=== PATIENT | female | born 1965 | race Caucasian/White ===

== ENCOUNTER 2022-09-20 10:19 | Emergency (ER) | payer BC, SELFPAY ==
--- NOTE | ~2022-09-20 | US_ITS ---
EXAMINATION: US ABDOMEN LIMITED CLINICAL INFORMATION: Right upper quadrant, epigastric pain. COMPARISON: CT scan of the abdomen and pelvis dated 09/25/2017. TECHNIQUE: Real-time imaging of the right upper quadrant abdominal viscera. FINDINGS: PANCREAS: Visualized portions unremarkable. LIVER: Subcapsular anechoic cyst in the right hepatic lobe measures up to 4.3 cm. Color Doppler showed no abnormal vascular flow. GALLBLADDER: Unremarkable. COMMON BILE DUCT: Normal in caliber measuring 0.2 cm in diameter. FREE FLUID: None. US/US abdomen limited IMPRESSION: Right liver hepatic cyst demonstrates benign features similar to the previous CT scan. This does not require follow-up. No other significant abnormality.
--- NOTE | ~2022-09-20 | XR_ITS ---
EXAMINATION: XR CHEST CLINICAL INFORMATION: Chest pain. COMPARISON: None TECHNIQUE: 2 views of the chest were obtained. FINDINGS: The lungs are clear. There are no pleural effusions. The heart and mediastinal structures are unremarkable. Nonacute deformity of the left superior ribs are noted. XR/XR chest 2V IMPRESSION: No acute cardiopulmonary process.
[2022-09-20 10:42] VITALS: BP 198/80; PULSE 92; RESP 20; TEMP 36.6; O2SAT 99; BMI 36.6
[2022-09-20 11:00] LABS: MANUAL DIFF FLAG NO
[2022-09-20 11:02] LABS: Basophils Percent Auto 0.4 % (0-2); Eosinophils Absolute Auto 0.1 X10*3/uL (0.0-0.4); Hematocrit 33.3 % (37.0-47.0); Hemoglobin 11.1 g/dl (12.0-16.0); Imm Gran Abs Auto 0.02 X10*3/uL (0.00-0.03); Imm Gran Pct Auto 0.3 % (0.0-0.4); Lymphocytes Percent Auto 15.4 % (20-40); Mean Corpuscular HGB Conc 33.3 g/dl (31.0-35.0); Mean Corpuscular Hemoglobin 28.9 pg (27.0-33.0); Mean Corpuscular Volume 86.7 fL (80.0-98.0); Mean Platelet Volume 10.9 fL (9.4-12.3); Monocytes Absolute Auto 0.5 X10*3/uL (0.1-1.2); Monocytes Percent Auto 7.9 % (2-11); Neutrophils Absolute Auto 5.1 x10*3/uL (2.0-8.3); Platelet Count 211 X10*3/uL (160-400); Red Blood Count 3.84 X10*6/uL (4.20-5.50); Red Cell Distribution Width 12.9 % (11.0-16.0); White Blood Count 6.8 X10*3/uL (4.8-10.8)
[2022-09-20 11:29] LABS: Anion Gap 12 (12-20); Blood Urea Nitrogen 26 mg/dL (9-16); Calcium 9.9 mg/dL (8.4-10.2); Carbon Dioxide 28 mmol/L (22-29); Chloride 104 mmol/L (96-108); Creatinine Clr Calc Pharmacy 54.9; Estimated Glomerular Filt Rate 43; Glucose Random 119 mg/dL (60-115); Potassium 4.1 mmol/L (3.3-5.1); Sodium 140 mmol/L (135-145)
[2022-09-20 11:33] LABS: Troponin-I High Sensitivity 6.5 ng/L (<3.5-17.0)
--- NOTE | 2022-09-20 14:41 | ECG_ITS ---
Test Reason : CHEST PAIN Blood Pressure : / mmHG Vent. Rate : 088 BPM Atrial Rate : 088 BPM P-R Int : 214 ms QRS Dur : 130 ms QT Int : 390 ms P-R-T Axes : 071 -35 039 degrees QTc Int : 471 ms Sinus rhythm with 1st degree A-V block Left axis deviation RSR' or QR pattern in V1 suggests right ventricular conduction delay Nonspecific ST abnormality Inferior leads Non-specific intra-ventricular conduction block Abnormal ECG No previous ECGs available Referred By: Yaz Helm Electronically Signed By:RONALD HAM MD
--- NOTE | 2022-09-20 14:42 | ED.CHESTPAIN ---
HPI - Chest Pain General Chief Complaint: Chest Pain Stated Complaint: Chest pain/Abd pain Time Seen by Provider: 09/20/22 14:37 Source: patient Mode of arrival: ambulatory Limitations: no limitations History of Present Illness HPI narrative: Patient is a 57-year-old female who presents to the emergency department today for evaluation of intermittent chest discomfort and palpitations that began yesterday while at work. She felt these ?radiating into her abdomen?. States during periods of palpitations she was feeling discomfort diffusely down the midline of her abdomen. She has also been experiencing indigestion, epigastric pain that is described as aching cramping intermittently over the past month or so. Denies associated fevers, chills, dizziness, lightheadedness, headache, vision changes, neck pain, shortness of breath, difficulty breathing, nausea, vomiting, lower abdominal pain, diarrhea, constipation, numbness or tingling of the extremities, generalized weakness. Related Data Previous Rx's Medication Instructions Recorded omeprazole 20 mg capsule,delayed 20 mg PO DAILY #14 caps 09/20/22 release Allergies Allergy/AdvReac Type Severity Reaction Status Date / Time ciprofloxacin [From CIPRO] Allergy Unknown NAUSEA Unverified 07/30/20 16:43 clarithromycin [From BIAXIN] Allergy Unknown SWELLING, Unverified 07/30/20 16:43 HIVES Penicillins [PCN] Allergy Unknown HIVES Unverified 07/30/20 16:43 sulfamethoxazole Allergy Unknown HIVES Unverified 07/30/20 16:43 [From BACTRIM] trimethoprim [From BACTRIM] Allergy Unknown HIVES Unverified 07/30/20 16:43 Review of Systems Review of Systems: Constitutional : No Weight loss, No Fever, No Chills ENT/Mouth :? No sore throat, No Rhinorrhea Eyes: No Eye Pain, No Swelling Cardiovascular : pos Chest Pain, no SOB, no Dyspnea on Exertion, No Orthopnea, No Edema, positive Palpitations Respiratory : No Cough, No Sputum Gastrointestinal : No Nausea, No Vomiting, No Diarrhea, positive abdominal Pain, NoHematochezia, No Melena Genitourinary : No Dysuria, No Urinary Frequency Musculoskeletal : No joint pain, No Myalgias, No Joint Swelling Skin : No Skin Lesions, No rash Neuro : No Weakness, No Numbness, No Dizziness, No Headache Psych : No Anxiety/Panic, No Depression Heme/Lymph: No Bruising, No Lymphadenopathy Endocrine : No Polyuria, No Polydipsia Yes all other systems are reviewed and are negative [facility] Past Medical History Attestation statement: The following information was validated with the patient. Source: old records reviewed Social History Social History Smoked in Last 30 Days: No Use of substances other than those prescribed or required for medical reasons: No Advance Directives: No Advance Directives Information Provided: Yes Patient : No Physical Exam Vital Signs: Vital Signs: Last Vital Signs Temp 97.9 F 09/20/22 16:00 Pulse 60 09/20/22 16:00 Resp 18 09/20/22 16:00 BP 168/54 H 09/20/22 16:00 Pulse Ox 98 09/20/22 16:00 O2 Del Method 09/20/22 16:00 BMI result Body Mass Index 36.6 Appearance: Alert.?Oriented to person, place and time. No acute distress.?Normal affect. Eyes: Pupils equal, round and reactive to light.? ENT: Pharynx normal.?? Neck: Normal inspection.? Neck supple.?? CVS: Heart sounds normal. Normal heart rate and rhythm.? Pulses normal.?? Respiratory: No respiratory distress.? Lung sounds clear to auscultation bilaterally?? Abdomen: Soft with right upper quadrant and epigastric tenderness upon palpation. Normoactive bowel sounds. Skin: Skin warm and dry.? Normal skin color.? Extremities: No lower extremity edema.? Neuro: Moves all extremities spontaneously. Sensation intact bilaterally. No focal neuro deficits. Ambulates with normal steady gait. Course Course Course Narrative: Patient is a 57-year-old female with a past medical history of PDA status post surgical repair, history of coarctation of the aorta status post bypass, hypertension, hyperlipidemia, stage III CKD, anxiety, obstructive sleep apnea, atrial fibrillation/atrial flutter S/P ablation in 2017, anticoagulated on Eliquis, not on rate control since metoprolol was discontinued January 2022 secondary to hypotension. She presents today for evaluation of intermittent chest discomfort, palpitations, and epigastric pain. Will obtain CBC to evaluate for leukocytosis/ anemia, CMP and lipase to evaluate for abnormal electrolytes /abnormal renal function/ abnormal hepatic/biliary function, EKG and troponin to evaluate for ischemia/ACS. Chest x-ray to evaluate for consolidation/ infiltrate/ mass/ pulmonary congestion. Will trial GI cocktail for pain. Currently she is without chest pain or palpitations. Reevaluation(s) Reevaluation #1: CBC is overall unremarkable. CMP overall unremarkable, BUN 26 and creatinine 1.29 which patient reports is around baseline for her. LFT lipase are within normal limits. Troponin 6.5, EKG reveals sinus rhythm with first-degree AV block, when compared to the prior EKG that she has a personal copy of there are no acute ischemic changes. Time: 16:06 Reevaluation #2: Ultrasound reveals right hepatic cyst, similar to prior CT scan, no other significant abnormality. Patient tolerating krunal andrea and crackers without significant pain nausea or vomiting. Discussed with palpitations likely secondary to bouts of AFib/a flutter she expresses that she has been experiencing, again continues to have no palpitations while in the emergency department. GI symptoms likely secondary to gastritis, discussed plan of care for discharge home, omeprazole daily, Tums as needed for acute symptoms, outpatient follow-up with primary care provider within 2-3 days, discussed worrisome signs and symptoms to return back to the emergency department for. All questions were answered, patient was discharged home in stable condition. Time: 17:51 Medications Administered Discontinued Medications Generic Name Dose Route Start Last Admin Trade Name Powerq PRN Reason Stop Dose Admin Acetaminophen 975 mg 09/20/22 17:33 09/20/22 17:39 Acetaminophen 325 Mg Tablet PO 09/20/22 17:34 975 mg ONCE ONE Administration Al Hydroxide/Mg Hydroxide 30 ml 09/20/22 15:09 09/20/22 15:56 Magnesium Hydrox/Alum Hydrox 30 Ml Oral.Susp PO 09/20/22 15:10 30 ml ONCE ONE Administration Famotidine 20 mg 09/20/22 15:09 09/20/22 15:56 Famotidine 20 Mg Tablet PO 09/20/22 15:10 20 mg ONCE ONE Administration Lidocaine HCl 15 ml 09/20/22 15:09 09/20/22 15:57 Lidocaine Hcl Viscous 2 % 15 Ml Solution MUCOUS MEM 09/20/22 15:10 Not Given ONCE ONE MDM - Chest Pain Medical Records Data Attestation: I reviewed the patient's medical records. Lab Data Attestation: I reviewed the patient's lab results. Result diagrams: 09/20/22 10:55 09/20/22 10:55 Labs: Lab Results 09/20/22 09/20/22 09/20/22 Range/Units 10:55 10:55 10:55 WBC 6.8 (4.8-10.8) X10*3/uL RBC 3.84 L (4.20-5.50) X10*6/uL Hgb 11.1 L (12.0-16.0) g/dl Hct 33.3 L (37.0-47.0) % MCV 86.7 (80.0-98.0) fL MCH 28.9 (27.0-33.0) pg MCHC 33.3 (31.0-35.0) g/dl RDW 12.9 (11.0-16.0) % Plt Count 211 (160-400) X10*3/uL MPV 10.9 (9.4-12.3) fL Immature Gran % (Auto) 0.3 (0.0-0.4) % Neut % (Auto) 75.0 H (45-73) % Lymph % (Auto) 15.4 L (20-40) % [place] % (Auto) 7.9 (2-11) % Eos % (Auto) 1.0 (0-4) % Baso % (Auto) 0.4 (0-2) % Lymph # (Auto) 1.0 L (1.2-4.9) X10*3/uL [place] # (Auto) 0.5 (0.1-1.2) X10*3/uL Eos # (Auto) 0.1 (0.0-0.4) X10*3/uL Baso # (Auto) 0.0 (0.0-0.2) X10*3/uL Abs Immat Gran (auto) 0.02 (0.00-0.03) X10*3/uL Absolute Neuts (auto) 5.1 (2.0-8.3) x10*3/uL Absolute Nucleated RBC 0.000 (0.0-0.012) X10*3/uL Nucleated RBC % (auto) 0.0 (0.0-0.2) /100WBC Sodium 140 (135-145) mmol/L Potassium 4.1 (3.3-5.1) mmol/L Chloride 104 (96-108) mmol/L Carbon Dioxide 28 (22-29) mmol/L Anion Gap 12 (12-20) BUN 26 H (9-16) mg/dL Creatinine 1.29 (0.5-1.4) mg/dL Estim Creat Clear Calc 54.9 Estimated GFR 43 Random Glucose 119 H (60-115) mg/dL Calcium 9.9 (8.4-10.2) mg/dL Total Bilirubin 0.5 (0.0-1.0) mg/dL Direct Bilirubin 0.2 (0.0-0.5) mg/dL AST 17 (5-31) U/L ALT 12 (0-31) U/L Alkaline Phosphatase 96 (39-117) U/L Troponin I High Sens 6.5 (<3.5-17.0) ng/L Total Protein 7.3 (6.5-8.0) g/dL Albumin 4.6 (3.5-5.0) g/dL Lipase 25 (8-78) U/L Imaging Data Chest x-ray: Radiologist's impression: XR/XR chest 2V IMPRESSION: No acute cardiopulmonary process. US - abdomen: Radiologist's impression: US/US abdomen limited IMPRESSION: Right liver hepatic cyst demonstrates benign features similar to the previous CT scan. This does not require follow-up. No other significant abnormality. ECG Data ECG #1: Attestation: I personally reviewed and interpreted this ECG as follows: ECG interpretation date: 09/20/22 Prior ECG tracings: available for review Interpretation: Rate: 88 Rhythm:? Sinus rhythm with first-degree AV block, intraventricular block [place]:? Left axis deviation Normal P waves.? Normal NAZ.?? Normal QRS complex.?? ST T wave :??No ST elevation, no ST depression qTC: 471 prior studies:? No prior EKG in [place] [employer], patient brought with her EKG from 2019 The study has been interpreted contemporaneously by me. Discharge Plan Discharge Clinical Impression: Gastritis, Palpitations Patient Disposition: Home, Self-Care Instructions: Heart Palpitations (ED), Gastritis (ED) Additional Instructions: As we discussed, your blood work was overall normal today, your ultrasound was overall normal. EKG appears unchanged when compared to her prior EKG. Take omeprazole daily, and Tums as needed for symptoms. Introduce a bland diet including crackers, bananas, rice, soup, toast, boiled vegetables. You may then progress to plain baked chicken or boiled chicken or turkey. Avoid dairy products or foods high in fat, [place], or spicy foods as this may worsen your symptoms. Speak with your primary care provider and arrange for a follow-up visit within 2-3 days. Return to emergency department with any new or worsening symptoms or concerns. Prescriptions: New omeprazole 20 mg capsule,delayed release(DR/EC) 20 mg PO DAILY Qty: 14 0RF Referrals: Eva Reardon MD [Primary Care Provider] -
[2022-09-20 15:50] VITALS: BP 168/54; PULSE 60; RESP 18; O2SAT 98
[2022-09-20] MEDS: Famotidine 20 MG TABLET PO (15:56)
[2022-09-20] MEDS: Magnesium Hydrox/Alum Hydrox 30 ML ORAL.SUSP PO (15:56)
[2022-09-20 15:57] LABS: Alanine Aminotransferase 12 U/L (0-31); Albumin Level 4.6 g/dL (3.5-5.0); Alkaline Phosphatase 96 U/L (39-117); Aspartate Amino Transferase 17 U/L (5-31); Bilirubin Direct 0.2 mg/dL (0.0-0.5); Bilirubin Total 0.5 mg/dL (0.0-1.0); Lipase 25 U/L (8-78); Total Protein 7.3 g/dL (6.5-8.0)
[2022-09-20 16:00] VITALS: BP 168/54; PULSE 60; RESP 18; TEMP 36.6; O2SAT 98
--- NOTE | 2022-09-20 17:34 | PC.NURSE ---
Pt reports increased abd kehinde and headache after u/s exam. Rates pain 3/10. Pt also reports one diarrhea episode. MDL aware.
[2022-09-20] MEDS: Acetaminophen 325 MG TABLET 975 MG PO (17:39)
--- NOTE | 2022-09-20 18:37 | PC.NURSE ---
Discharge instructions reviewed with pt. Pt verbalizes understanding.
== END 2022-09-20 18:38 | disposition home or self-care (01) ==
PROVIDERS: Nurse Practitioner Family; Emergency Provider Emergency Medicine; PCP Internal Medicine
DX: R00.2 Palpitations (principal); K29.70 Gastritis, unspecified, without bleeding
CPT/HCPCS: 36415; 71046; 76705; 80048; 80076; 83690; 84484; 85025; 93005; 99284; 99285

== ENCOUNTER 2024-01-16 15:27 | Outpatient (AMB) | payer OTHER, SELFPAY ==
--- NOTE | 2024-01-16 15:37 | HO.NEPHOV ---
HPI HPI Comments History of Present Illness Details I hadd the pleasure of seeing Kristine in follow-up of her chronic kidney disease and hypertension. She has history of coarctation of aorta. Her blood pressure has been fairly well controlled lately. She has not had any further atrial fibrillation. She is followed up by her professional services manager. Her renal functions had been at her baseline. She does not have any chest pain, shortness of breath, palpitation, paroxysmal nocturnal dyspnea, orthopnea, pedal edema, orthostatic symptoms, hematuria. She does not take any nonsteroidal anti-inflammatories. There were no new active issues at the time of this office visit. FORMERLY [facility] Medical History (Updated 01/16/24 @ 16:25 by Sacha Malik MD) Coarctation of aorta PDA (patent ductus arteriosus) Hypertension CKD (chronic kidney disease) stage 3, GFR 30-59 ml/min Surgical History S/P ablation of atrial fibrillation H/O section History of foot surgery H/O angioplasty Family History Brother Diabetes Father Hypertension Mother Hypertension Stroke Social History (Updated 01/16/24 @ 15:48 by Estephanie Mauro MA) Alcohol intake: never Patient Tobacco Use Status: Never used Tobacco Vital Signs 01/16/24 15:40 Height 5 ft 5 in Weight 210 lb BMI 34.9 BP 140/70 H Blood Pressure Location Lt brachial Position Sitting Pulse 61 Pulse Source Pulse Oximeter Pulse Oximetry (%) 99 Oxygen Delivery Method Room Air Physical Exam Vital Signs: Last Vital Signs Pulse 61 01/16/24 15:40 BP 140/70 H 01/16/24 15:40 Pulse Ox 99 01/16/24 15:40 Oxygen Delivery Method Room Air 01/16/24 15:40 BMI result Body Mass Index 34.9 Const General: comfortable and no acute distress Orientation/consciousness: patient oriented x3 HEENT Head: Yes normocephalic Mouth: Normal oral and palatal mucosa present Eyes EOM: EOMs intact bilaterally Neck Neck: Yes supple Resp Auscultation: clear to auscultation bilaterally Cardio Jugular venous distension: no JVD Rate: regular rate GI Palpation (GI): Soft to palpation Auscultation: normal bowel sounds General: Yes no CVA tenderness Back/Spine/Pelvis Back: no CVA tenderness Skin General skin exam: no rashes or lesions noted Neuro General: patient oriented x3 and moves all extremities Extrem General: Yes no pedal edema Assessment & Plan Assessment & Plan (1) CKD (chronic kidney disease) stage 3, GFR 30-59 ml/min: Code(s): N18.30 - Chronic kidney disease, stage 3 unspecified Qualifiers: Chronic kidney disease stage 3 subtype: stage 3a (GFR 45-59) Qualified Code(s): N18.31 - Chronic kidney disease, stage 3a (2) Hypertension: Code(s): I10 - Essential (primary) hypertension Qualifiers: Hypertension type: renovascular hypertension Qualified Code(s): I15.0 - Renovascular hypertension Plan Kristine has CKD stage 3 due to vascular disease. Her renal functions are at baseline. Her blood pressure has been at goal. She is tolerating current medication regimen. Her volume status is optimal. She is watching her blood sugars closely. She may be a candidate for Jardiance or Farxiga in the future. She needs to closely follow-up with her professional services manager. She avoids nonsteroidal anti-inflammatories. She will benefit from weight loss. I did not make any medication changes today. Follow-up blood work ordered. Answered all questions. Orders: Orders Blood Urea Nitrogen 01/16/24 N18.30 - Chronic kidney disease, stage 3 unspecified, I10 - Essential (primary) hypertension Electrolytes 01/16/24 N18.30 - Chronic kidney disease, stage 3 unspecified, I10 - Essential (primary) hypertension Creatinine 01/16/24 N18.30 - Chronic kidney disease, stage 3 unspecified, I10 - Essential (primary) hypertension Coding Level of Care Code Est Pt Level 4 (40899) Diagnoses Stage 3a chronic kidney disease N18.31 Chronic kidney disease stage 3 subtype: stage 3a (GFR 45-59) Renovascular hypertension I15.0 Hypertension type: renovascular hypertension Results Reviewed Nephrology Results: Hgb 11.1 g/dl (12.0-16.0) L 09/20/22 WBC 6.8 X10*3/uL (4.8-10.8) 09/20/22 Plt Count 211 X10*3/uL (160-400) 09/20/22 Sodium 140 mmol/L (135-145) 09/20/22 Potassium 4.1 mmol/L (3.3-5.1) 09/20/22 Chloride 104 mmol/L (96-108) 09/20/22 Carbon Dioxide 28 mmol/L (22-29) 09/20/22 BUN 26 mg/dL (9-16) H 09/20/22 Creatinine 1.29 mg/dL (0.5-1.4) 09/20/22 Calcium 9.9 mg/dL (8.4-10.2) 09/20/22
[2024-01-16 15:40] VITALS: BP 140/70; PULSE 61; O2SAT 99; BMI 34.9
== END 2024-01-16 16:33 | disposition home or self-care (01) ==
PROVIDERS: PCP Internal Medicine; Visit Provider Internal Medicine Nephrology
DX: N18.31 Chronic kidney disease, stage 3a (principal); I15.0 Renovascular hypertension
CPT/HCPCS: 99214

== ENCOUNTER → 2024-01-16 15:27 | Outpatient (BNVA) | payer OTHER, SELFPAY | PROVIDERS: PCP Internal Medicine; Visit Provider Internal Medicine Nephrology ==

== ENCOUNTER 2024-04-16 16:24 | Outpatient (REF) | payer OTHER, SELFPAY ==
[2024-04-16 17:16] LABS: Anion Gap 17 (12-20); Blood Urea Nitrogen 67 mg/dL (9-16); Carbon Dioxide 20 mmol/L (22-29); Chloride 103 mmol/L (96-108); Estimated Glomerular Filt Rate 25; Potassium 4.9 mmol/L (3.3-5.1); Sodium 135 mmol/L (135-145)
[2024-04-16 18:24] LABS: Total Protein Urine Random < 7 mg/dL (<12)
== END 2024-04-16 16:25 | disposition home or self-care (01) ==
LOC: HO.LAB 16:24
PROVIDERS: PCP Internal Medicine; Visit Provider Internal Medicine Nephrology
DX: N18.30 Chronic kidney disease, stage 3 unspecified (principal); I10 Essential (primary) hypertension
CPT/HCPCS: 36415; 80051; 82565; 82570; 84156; 84520

== ENCOUNTER 2024-04-18 15:45 | Outpatient (AMB) | payer OTHER, SELFPAY ==
--- NOTE | 2024-04-18 15:48 | HO.NEPHOV_ITS ---
Vital Signs 04/18/24 15:50 Height 5 ft 5 in Weight 205 lb BMI 34.1 BP 132/50 L Blood Pressure Location Lt brachial Position Sitting Pulse 66 Pulse Source Pulse Oximeter Pulse Oximetry (%) 99 Oxygen Delivery Method Room Air Intake Visit Reasons: 3 mon follow up/ LVM Allergies ciprofloxacin [From CIPRO] Allergy (Unknown, Verified 01/16/24 15:44) NAUSEA clarithromycin [From BIAXIN] Allergy (Unknown, Verified 01/16/24 15:44) SWELLING, HIVES Penicillins [PCN] Allergy (Unknown, Verified 01/16/24 15:44) HIVES sulfamethoxazole [From BACTRIM] Allergy (Unknown, Verified 01/16/24 15:44) HIVES trimethoprim [From BACTRIM] Allergy (Unknown, Verified 01/16/24 15:44) HIVES HPI Comments Details: Kristine was seen in follow-up of her chronic kidney disease and hypertension. She has been feeling intermittently light headed. She also had 3 episodes of diarrhea. Her dizziness more or less happens around noon time. She has history of coarctation of aorta. Her blood pressure has been running low. She had 2 episodes of COVID and ever since she has been having issues with breathing and had multiple ER visits. She has not had any further atrial fibrillation. She is followed up by her financial risk manager. Her renal functions had been at her baseline but her serum creatinine has gone up recently. She does not have any chest pain, shortness of breath, palpitation, paroxysmal nocturnal dyspnea, orthopnea, pedal edema, orthostatic symptoms, hematuria. She does not take any nonsteroidal anti-inflammatories. Kristine has not tolerated beta paulino in the past. She could not tolerate the spironolactone in the past due to hyperkalemia. Her stress test was negative in the past. She uses CPAP. She has no history of proteinuria. Doppler of her renal arteries did not show any critical renal artery stenosis in the past. Her Chlorthalidone was put on hold since she had JAKOB. She is concerned about her JAKOB and was accompanied by her daughter Gena who is a pharmacist. [facility] Medical History (Updated 04/18/24 @ 16:32 by Sacha Malik MD) Coarctation of aorta PDA (patent ductus arteriosus) Hypertension CKD (chronic kidney disease) stage 3, GFR 30-59 ml/min Surgical History S/P ablation of atrial fibrillation H/O section History of foot surgery H/O angioplasty Family History Brother Diabetes Father Hypertension Mother Hypertension Stroke Social History Alcohol intake: never Patient Tobacco Use Status: Never used Tobacco Physical Exam Vital Signs: Last Vital Signs Pulse 66 04/18/24 15:50 BP 132/50 L 04/18/24 15:50 Pulse Ox 99 04/18/24 15:50 Oxygen Delivery Method Room Air 04/18/24 15:50 BMI result Body Mass Index 34.1 Const General: comfortable and no acute distress Orientation/consciousness: patient oriented x3 HEENT Head: Yes normocephalic Mouth: Normal oral and palatal mucosa present Eyes EOM: EOMs intact bilaterally Neck Neck: Yes supple Resp Auscultation: clear to auscultation bilaterally Cardio Jugular venous distension: no JVD Rate: regular rate GI Palpation (GI): Soft to palpation Auscultation: normal bowel sounds General: Yes no CVA tenderness Back/Spine/Pelvis Back: no CVA tenderness Skin General skin exam: no rashes or lesions noted Neuro General: patient oriented x3 and moves all extremities Extrem General: Yes no pedal edema Results Reviewed Nephrology Results: Sodium 135 mmol/L (135-145) 04/16/24 Potassium 4.9 mmol/L (3.3-5.1) 04/16/24 Chloride 103 mmol/L (96-108) 04/16/24 Carbon Dioxide 20 mmol/L (22-29) L 04/16/24 BUN 67 mg/dL (9-16) H 04/16/24 Creatinine 2.06 mg/dL (0.5-1.4) H 04/16/24 Urine Creatinine 135.80 mg/dL 04/16/24 Protein/Creatinin Ratio TNP 04/16/24 Assessment & Plan Assessment & Plan (1) CKD (chronic kidney disease) stage 3, GFR 30-59 ml/min: Code(s): N18.30 - Chronic kidney disease, stage 3 unspecified Category: Medical Qualifiers: Chronic kidney disease stage 3 subtype: stage 3a (GFR 45-59) Qualified Code(s): N18.31 - Chronic kidney disease, stage 3a (2) Hypertension: Code(s): I10 - Essential (primary) hypertension Category: Medical Qualifiers: Hypertension type: renovascular hypertension Qualified Code(s): I15.0 - Renovascular hypertension (3) JAKOB (acute kidney injury): Code(s): N17.9 - Acute kidney failure, unspecified Category: Medical Plan Kristine has JAKOB due to compromise in renal perfusion. She has CKD stage 3 due to vascular disease. I discontinued her Chlorthalidone and AM dosage of lisinopril. I also reduced her PM lisinopril dosage to 10 mg. Her volume status is optimal. She is watching her blood sugars closely. She may be a candidate for Jardiance or Farxiga in the future. She needs an ECHO and close follow-up with her financial risk manager. She avoids nonsteroidal anti-inflammatories. She will benefit from weight loss. I did not make any other medication changes today. Follow-up blood work ordered. Answered all questions. Orders: Orders Blood Urea Nitrogen 04/18/24 I15.0 - Renovascular hypertension, N18.31 - Chronic kidney disease, stage 3a Electrolytes 04/18/24 I15.0 - Renovascular hypertension, N18.31 - Chronic kidney disease, stage 3a CK, Total+Isoenzymes, Serum 04/18/24 I15.0 - Renovascular hypertension, N17.9 - Acute kidney failure, unspecified, N18.31 - Chronic kidney disease, stage 3a Protein Creatinine Ratio, Ur 04/18/24 I15.0 - Renovascular hypertension, N17.9 - Acute kidney failure, unspecified, N18.31 - Chronic kidney disease, stage 3a MACR Reflex Titer and Pattern 04/18/24 I15.0 - Renovascular hypertension, N17.9 - Acute kidney failure, unspecified, N18.31 - Chronic kidney disease, stage 3a ANCA Vasculitides 04/18/24 I15.0 - Renovascular hypertension, N17.9 - Acute kidney failure, unspecified, N18.31 - Chronic kidney disease, stage 3a Creatinine 04/18/24 I15.0 - Renovascular hypertension, N18.31 - Chronic kidney disease, stage 3a UA and rflx microscopic 04/18/24 I15.0 - Renovascular hypertension, N17.9 - Acute kidney failure, unspecified, N18.31 - Chronic kidney disease, stage 3a Complement C3 04/18/24 I15.0 - Renovascular hypertension, N17.9 - Acute kidney failure, unspecified, N18.31 - Chronic kidney disease, stage 3a Complement C4 04/18/24 I15.0 - Renovascular hypertension, N17.9 - Acute kidney failure, unspecified, N18.31 - Chronic kidney disease, stage 3a Cortisol Random 04/18/24 I15.0 - Renovascular hypertension, N17.9 - Acute kidney failure, unspecified, N18.31 - Chronic kidney disease, stage 3a Anti Glomerular Basement Memb 04/18/24 I15.0 - Renovascular hypertension, N17.9 - Acute kidney failure, unspecified, N18.31 - Chronic kidney disease, stage 3a Immunofixation Pnl, Serum 04/18/24 I15.0 - Renovascular hypertension, N17.9 - Acute kidney failure, unspecified, N18.31 - Chronic kidney disease, stage 3a Coding Level of Care Code Est Pt Level 4 (26183) Diagnoses Stage 3a chronic kidney disease N18.31 Chronic kidney disease stage 3 subtype: stage 3a (GFR 45-59) Renovascular hypertension I15.0 Hypertension type: renovascular hypertension JAKOB (acute kidney injury) N17.9
[2024-04-18 15:50] VITALS: BP 132/50; PULSE 66; O2SAT 99; BMI 34.1
== END 2024-04-18 16:46 | disposition home or self-care (01) ==
PROVIDERS: PCP Internal Medicine; Visit Provider Internal Medicine Nephrology
DX: N18.31 Chronic kidney disease, stage 3a (principal); I15.0 Renovascular hypertension; N17.9 Acute kidney failure, unspecified
CPT/HCPCS: 99214

== ENCOUNTER → 2024-04-18 15:45 | Outpatient (BNVA) | payer OTHER, SELFPAY | PROVIDERS: PCP Internal Medicine; Visit Provider Internal Medicine Nephrology ==

== ENCOUNTER 2024-04-25 16:06 | Outpatient (REF) | payer OTHER, SELFPAY ==
[2024-04-25 17:14] LABS: Appearance Urine Clear; Color Urine Yellow; Glucose Urine UA Negative (Negative); Leukocyte Esterase Urine Large (3+) (Negative); Nitrite Urine Negative (Negative); PH 5.5 (5.0-9.0); Specific Gravity - Urine 1.015 (1.005-1.025); UMIC TRIGGER UA YES; Urine Blood Negative (Negative); Urine Ketones Negative (Negative); Urine Protein Negative (Neg-Trace)
[2024-04-25 17:19] LABS: Bacteria Urine None Seen (None Seen); RBC Urine 0-2 /HPF (0-2); Squamous Epithelial Cell Urine 0-2 /HPF (0-2)
[2024-04-25 17:43] LABS: Creatinine Urine 83.13 mg/dL; Total Protein Urine Random < 7 mg/dL (<12)
[2024-04-25 17:43] LABS: Anion Gap 10 (12-20); Blood Urea Nitrogen 43 mg/dL (9-16); Carbon Dioxide 26 mmol/L (22-29); Chloride 101 mmol/L (96-108); Estimated Glomerular Filt Rate 38; Potassium 4.1 mmol/L (3.3-5.1); Sodium 133 mmol/L (135-145)
[2024-04-25 18:00] LABS: Cortisol Random 11.5 ug/dL
[2024-04-26 12:23] LABS: Complement C3 149 mg/dL (83-193)
[2024-04-28 17:59] LABS: CK-BB None Detected (None Detected); CK-MB 0 % (<5); CK-MM 100 % (95-100); Creatine Kinase,Total,Serum 64 U/L (29-143)
[2024-04-29 23:38] LABS: Anti Glomerular Basement Memb <1.0 AI; Myeloperoxidase Antibody <1.0 AI; Proteinase 3 PR3 Antibodies <1.0 AI
[2024-04-30 13:24] LABS: Anti Nuclear Antibody Screen POSITIVE (NEGATIVE); Anti Nuclear Antibody Titer 1:40 titer
[2024-05-01 06:54] LABS: IgA 94 mg/dL (47-310); IgG 918 mg/dL (600-1640); IgM 108 mg/dL (50-300)
== END 2024-04-25 16:07 | disposition home or self-care (01) ==
LOC: HO.LAB 16:06
PROVIDERS: PCP Internal Medicine; Visit Provider Internal Medicine Nephrology
DX: N18.30 Chronic kidney disease, stage 3 unspecified (principal); N18.31 Chronic kidney disease, stage 3a; I12.9 Hypertensive chronic kidney disease with stage 1 through stage 4 chronic kidney disease, or unspecified chronic kidney disease; I15.0 Renovascular hypertension; N17.9 Acute kidney failure, unspecified
CPT/HCPCS: 36415; 80051; 81001; 82533; 82552; 82565; 82570; 82784; 83520; 84156; 84520; 86021; 86038; 86039; 86160; 86334

== ENCOUNTER 2024-04-26 14:30 | Outpatient (AMB) | payer OTHER, SELFPAY ==
--- NOTE | 2024-04-26 15:03 | HO.NEPHOV_ITS ---
Vital Signs 04/26/24 15:04 Height 5 ft 5 in Weight 205 lb 4 oz BMI 34.2 BP 134/60 Blood Pressure Location Lt brachial Position Sitting Pulse 69 Pulse Source Pulse Oximeter Pulse Oximetry (%) 99 Oxygen Delivery Method Room Air Intake Visit Reasons: 1 wk follow up/ Conf Automotive Professional Required: No Accompanied by: Daughter Allergies ciprofloxacin [From CIPRO] Allergy (Unknown, Verified 04/26/24 15:08) NAUSEA clarithromycin [From BIAXIN] Allergy (Unknown, Verified 04/26/24 15:08) SWELLING, HIVES Penicillins [PCN] Allergy (Unknown, Verified 04/26/24 15:08) HIVES sulfamethoxazole [From BACTRIM] Allergy (Unknown, Verified 04/26/24 15:08) HIVES trimethoprim [From BACTRIM] Allergy (Unknown, Verified 04/26/24 15:08) HIVES HPI Comments Details: Kristine was seen in follow-up of her chronic kidney disease and hypertension. She has been feeling intermittently light headed but remarkably better after adjustment of her medications at the last visit. She does not have any episodes of diarrhea now. She has history of coarctation of aorta. Her blood pressure has been running low normal but better than before. She has history of 2 episodes of COVID and ever since she has been having issues with breathing and had multiple ER visits, but stable now. She has not had any further atrial fibrillation. She is followed up by her building trades instructor. She does not have any chest pain, shortness of breath, palpitation, paroxysmal nocturnal dyspnea, orthopnea, pedal edema, orthostatic symptoms, hematuria. She does not take any nonsteroidal anti-inflammatories. Kristine has not tolerated beta paulino in the past. She could not tolerate the spironolactone in the past due to hyperka lemia. Her stress test was negative in the past. She uses CPAP. She has no history of proteinuria. Doppler of her renal arteries did not show any critical renal artery stenosis in the past. Her Chlorthalidone was put on hold and had reduced dose of lisinopril since she had JAKOB. She was accompanied by her daughter Gena who is a pharmacist. Her recent serum creatinine has improved significantly [facility] Medical History (Updated 04/18/24 @ 16:32 by Sacha Malik MD) Coarctation of aorta PDA (patent ductus arteriosus) Hypertension CKD (chronic kidney disease) stage 3, GFR 30-59 ml/min Surgical History S/P ablation of atrial fibrillation H/O section History of foot surgery H/O angioplasty Family History Brother Diabetes Father Hypertension Mother Hypertension Stroke Social History Alcohol intake: never Patient Tobacco Use Status: Never used Tobacco Physical Exam Vital Signs: Last Vital Signs Pulse 69 04/26/24 15:04 BP 134/60 04/26/24 15:04 Pulse Ox 99 04/26/24 15:04 Oxygen Delivery Method Room Air 04/26/24 15:04 BMI result Body Mass Index 34.2 Const General: comfortable and no acute distress Orientation/consciousness: patient oriented x3 HEENT Head: Yes normocephalic Mouth: Normal oral and palatal mucosa present Eyes EOM: EOMs intact bilaterally Neck Neck: Yes supple Resp Auscultation: clear to auscultation bilaterally Cardio Jugular venous distension: no JVD Rate: regular rate GI Palpation (GI): Soft to palpation Auscultation: normal bowel sounds General: Yes no CVA tenderness Back/Spine/Pelvis Back: no CVA tenderness Skin General skin exam: no rashes or lesions noted Neuro General: patient oriented x3 and moves all extremities Extrem General: Yes no pedal edema Results Reviewed Nephrology Results: Hgb 11.1 g/dl (12.0-16.0) L 09/20/22 WBC 6.8 X10*3/uL (4.8-10.8) 09/20/22 Plt Count 211 X10*3/uL (160-400) 09/20/22 Sodium 133 mmol/L (135-145) L 04/25/24 Potassium 4.1 mmol/L (3.3-5.1) 04/25/24 Chloride 101 mmol/L (96-108) 04/25/24 Carbon Dioxide 26 mmol/L (22-29) 04/25/24 BUN 43 mg/dL (9-16) H 04/25/24 Creatinine 1.41 mg/dL (0.5-1.4) H 04/25/24 Calcium 9.9 mg/dL (8.4-10.2) 09/20/22 Urine Protein Negative mg/dL (Neg-Trace) 04/25/24 Urine Creatinine 83.13 mg/dL 04/25/24 Protein/Creatinin Ratio TNP 04/25/24 Assessment & Plan Assessment & Plan (1) Hypertension: Code(s): I10 - Essential (primary) hypertension Category: Medical Qualifiers: Hypertension type: renovascular hypertension Qualified Code(s): I15.0 - Renovascular hypertension (2) JAKOB (acute kidney injury): Code(s): N17.9 - Acute kidney failure, unspecified Category: Medical (3) CKD (chronic kidney disease) stage 3, GFR 30-59 ml/min: Code(s): N18.30 - Chronic kidney disease, stage 3 unspecified Category: Medical Qualifiers: Chronic kidney disease stage 3 subtype: stage 3a (GFR 45-59) Qualified Code(s): N18.31 - Chronic kidney disease, stage 3a Zuleika Carmona has JAKOB due to compromise in renal perfusion which has resolved since we have discontinued her chlorthalidone and reduced the dosage of lisinopril. She has CKD stage 3 due to vascular disease. Her volume status is optimal. She is watching her blood sugars closely. Urine she has been having intermittent dizzy episodes, I have ordered a 24 hour ambulatory blood pressure monitor on her current medications. She may be a candidate for Jardiance or Farxiga in the future. She needs an ECHO and close follow-up with her building trades instructor. She avoids nonsteroidal anti-inflammatories. She will benefit from weight loss. I did not make any other medication changes today. Follow-up blood work ordered. Answered all questions. Orders: Orders Creatinine 04/26/24 N17.9 - Acute kidney failure, unspecified, N18.31 - Chronic kidney disease, stage 3a, I15.0 - Renovascular hypertension AMB 24 Hour Blood Pressure Monitor PLACEMENT 04/26/24 I15.0 - Renovascular hypertension, N17.9 - Acute kidney failure, unspecified, N18.31 - Chronic kidney disease, stage 3a Blood Urea Nitrogen 04/26/24 N17.9 - Acute kidney failure, unspecified, N18.31 - Chronic kidney disease, stage 3a, I15.0 - Renovascular hypertension Electrolytes 04/26/24 N17.9 - Acute kidney failure, unspecified, N18.31 - Chronic kidney disease, stage 3a, I15.0 - Renovascular hypertension Coding Level of Care Code Est Pt Level 4 (44267) Diagnoses Renovascular hypertension I15.0 Hypertension type: renovascular hypertension JAKOB (acute kidney injury) N17.9 Stage 3a chronic kidney disease N18.31 Chronic kidney disease stage 3 subtype: stage 3a (GFR 45-59)
[2024-04-26 15:04] VITALS: BP 134/60; PULSE 69; O2SAT 99; BMI 34.2
== END 2024-04-26 15:29 | disposition home or self-care (01) ==
PROVIDERS: PCP Internal Medicine; Visit Provider Internal Medicine Nephrology
DX: I15.0 Renovascular hypertension (principal); N17.9 Acute kidney failure, unspecified; N18.31 Chronic kidney disease, stage 3a
CPT/HCPCS: 99214

== ENCOUNTER → 2024-04-26 14:30 | Outpatient (BNVA) | payer OTHER, SELFPAY | PROVIDERS: PCP Internal Medicine; Visit Provider Internal Medicine Nephrology ==

== ENCOUNTER → 2024-05-02 09:29 | Outpatient (BNVA) | payer OTHER, SELFPAY | PROVIDERS: PCP Internal Medicine; Visit Provider Internal Medicine Nephrology ==

== ENCOUNTER → 2024-05-03 14:49 | Outpatient (BNVA) | payer OTHER, SELFPAY | PROVIDERS: PCP Internal Medicine; Visit Provider Internal Medicine Nephrology ==

== ENCOUNTER 2024-05-29 13:06 | Outpatient (REF) | payer OTHER, SELFPAY ==
[2024-05-29 16:03] LABS: Appearance Urine Clear; Color Urine Yellow; Glucose Urine UA Negative (Negative); Leukocyte Esterase Urine Large (3+) (Negative); Nitrite Urine Negative (Negative); UMIC TRIGGER UA YES; Urine Blood Negative (Negative); Urine Ketones Negative (Negative); Urine Protein Negative (Neg-Trace)
[2024-05-29 16:09] LABS: Bacteria Urine None Seen (None Seen); Hyaline Casts Urine 0-2 /LPF (0-2); RBC Urine 0-2 /HPF (0-2); Squamous Epithelial Cell Urine 0-2 /HPF (0-2); WBC Urine 21-50 /HPF (0-5)
[2024-05-29 16:25] LABS: Anion Gap 13 (12-20); Blood Urea Nitrogen 24 mg/dL (9-16); Carbon Dioxide 24 mmol/L (22-29); Chloride 105 mmol/L (96-108); Estimated Glomerular Filt Rate 47; Potassium 4.4 mmol/L (3.3-5.1); Sodium 138 mmol/L (135-145)
== END 2024-05-29 13:07 | disposition home or self-care (01) ==
LOC: HO.HMGCLDS 13:06
PROVIDERS: PCP Internal Medicine; Visit Provider Internal Medicine Nephrology
DX: I12.9 Hypertensive chronic kidney disease with stage 1 through stage 4 chronic kidney disease, or unspecified chronic kidney disease (principal); N18.30 Chronic kidney disease, stage 3 unspecified; N18.31 Chronic kidney disease, stage 3a; I15.0 Renovascular hypertension; N17.9 Acute kidney failure, unspecified
CPT/HCPCS: 36415; 80051; 81001; 81003; 82565; 84520

== ENCOUNTER 2024-05-31 11:29 | Outpatient (AMB) | payer OTHER, SELFPAY ==
[2024-05-31 12:02] VITALS: BP 132/56; PULSE 71; O2SAT 98; BMI 33.6
--- NOTE | 2024-05-31 12:02 | HO.NEPHOV ---
Vital Signs 05/31/24 12:02 Height 5 ft 5 in Weight 202 lb BMI 33.6 BP 132/56 L Blood Pressure Location Lt brachial Position Sitting Pulse 71 Pulse Source Pulse Oximeter Pulse Oximetry (%) 98 Oxygen Delivery Method Room Air Intake Visit Reasons: 4 wk fu w/ labs/ Conf Plumbing Contractor Required: No Accompanied by: Self / Same As Patient Allergies ciprofloxacin [From CIPRO] Allergy (Unknown, Verified 05/31/24 12:04) NAUSEA clarithromycin [From BIAXIN] Allergy (Unknown, Verified 05/31/24 12:04) SWELLING, HIVES Penicillins [PCN] Allergy (Unknown, Verified 05/31/24 12:04) HIVES sulfamethoxazole [From BACTRIM] Allergy (Unknown, Verified 05/31/24 12:04) HIVES trimethoprim [From BACTRIM] Allergy (Unknown, Verified 05/31/24 12:04) HIVES HPI Comments Details: Kristine was seen in follow-up of her chronic kidney disease and hypertension. She has been feeling intermittently light headed but remarkably better after adjustment of her medications at the last visit. She does not have any episodes of diarrhea now. She has history of coarctation of aorta. Her blood pressure has been running low normal but better than before. She has history of 2 episodes of COVID and ever since she has been having issues with breathing and had multiple ER visits, but stable now. She has not had any further atrial fibrillation. She is followed up by her plastic outfitter. She does not have any chest pain, shortness of breath, palpitation, paroxysmal nocturnal dyspnea, orthopnea, pedal edema, orthostatic symptoms, hematuria. She does not take any nonsteroidal anti-inflammatories. Kristine has not tolerated beta paulino in the past. She could not tolerate the spironolactone in the past due to hyperkalemia. Her stress test was negative in the past. She uses CPAP. She has no history of proteinuria. Doppler of her renal arteries did not show any critical renal artery stenosis in the past. Her recent serum creatinine has improved significantly [facility] Medical History Coarctation of aorta PDA (patent ductus arteriosus) Hypertension CKD (chronic kidney disease) stage 3, GFR 30-59 ml/min Surgical History S/P ablation of atrial fibrillation H/O section History of foot surgery H/O angioplasty Family History Brother Diabetes Father Hypertension Mother Hypertension Stroke Social History Alcohol intake: never Patient Tobacco Use Status: Never used Tobacco Physical Exam Vital Signs: Last Vital Signs Pulse 71 05/31/24 12:02 BP 132/56 L 05/31/24 12:02 Pulse Ox 98 05/31/24 12:02 Oxygen Delivery Method Room Air 05/31/24 12:02 BMI result Body Mass Index 33.6 Const General: comfortable and no acute distress Orientation/consciousness: patient oriented x3 HEENT Head: Yes normocephalic Mouth: Normal oral and palatal mucosa present Eyes EOM: EOMs intact bilaterally Neck Neck: Yes supple Resp Auscultation: clear to auscultation bilaterally Cardio Jugular venous distension: no JVD Rate: regular rate GI Palpation (GI): Soft to palpation Auscultation: normal bowel sounds General: Yes no CVA tenderness Back/Spine/Pelvis Back: no CVA tenderness Skin General skin exam: no rashes or lesions noted Neuro General: patient oriented x3 and moves all extremities Extrem General: Yes no pedal edema Results Reviewed Nephrology Results: Sodium 138 mmol/L (135-145) 05/29/24 Potassium 4.4 mmol/L (3.3-5.1) 05/29/24 Chloride 105 mmol/L (96-108) 05/29/24 Carbon Dioxide 24 mmol/L (22-29) 05/29/24 BUN 24 mg/dL (9-16) H 05/29/24 Creatinine 1.18 mg/dL (0.5-1.4) 05/29/24 Urine Protein Negative mg/dL (Neg-Trace) 05/29/24 Urine Creatinine 83.13 mg/dL 04/25/24 Protein/Creatinin Ratio TNP 04/25/24 Assessment & Plan Assessment & Plan (1) CKD (chronic kidney disease) stage 3, GFR 30-59 ml/min: Code(s): N18.30 - Chronic kidney disease, stage 3 unspecified Category: Medical Qualifiers: Chronic kidney disease stage 3 subtype: stage 3a (GFR 45-59) Qualified Code(s): N18.31 - Chronic kidney disease, stage 3a (2) Hypertension: Code(s): I10 - Essential (primary) hypertension Category: Medical Qualifiers: Hypertension type: renovascular hypertension Qualified Code(s): I15.0 - Renovascular hypertension Plan Kristine has JAKOB due to compromise in renal perfusion which has resolved . She is off chlorthalidone and on reduced the dosage of lisinopril. She has CKD stage 3 due to vascular disease. Her volume status is optimal. She is watching her blood sugars closely. She may need more BP medications if BP goes up. She may be a candidate for Jardiance or Farxiga in the future. She may benefit from Procrit. She avoids nonsteroidal anti-inflammatories. She will benefit from weight loss. I did not make any other medication changes today. Follow-up blood work ordered. Answered all questions Coding Level of Care Code Est Pt Level 4 (34497) Diagnoses Stage 3a chronic kidney disease N18.31 Chronic kidney disease stage 3 subtype: stage 3a (GFR 45-59) Renovascular hypertension I15.0 Hypertension type: renovascular hypertension
== END 2024-05-31 12:30 | disposition home or self-care (01) ==
PROVIDERS: PCP Internal Medicine; Visit Provider Internal Medicine Nephrology
DX: N18.31 Chronic kidney disease, stage 3a (principal); I15.0 Renovascular hypertension
CPT/HCPCS: 99214

== ENCOUNTER → 2024-05-31 11:29 | Outpatient (BNVA) | payer OTHER, SELFPAY | PROVIDERS: PCP Internal Medicine; Visit Provider Internal Medicine Nephrology ==

== ENCOUNTER 2024-07-25 15:18 | Outpatient (AMB) | payer OTHER, SELFPAY ==
--- NOTE | 2024-07-25 16:02 | HO.NEPHOV_ITS ---
Vital Signs 07/25/24 16:03 Height 5 ft 5 in Weight 207 lb BMI 34.4 BP 150/60 H Blood Pressure Location Lt brachial Position Sitting Pulse 71 Pulse Source Pulse Oximeter Pulse Oximetry (%) 96 Oxygen Delivery Method Room Air Intake Visit Reasons: 6 wks follow up- [facility] Fur Drummer Required: No Accompanied by: Self / Same As Patient Allergies ciprofloxacin [From CIPRO] Allergy (Unknown, Verified 07/25/24 16:05) NAUSEA clarithromycin [From BIAXIN] Allergy (Unknown, Verified 07/25/24 16:05) SWELLING, HIVES Penicillins [PCN] Allergy (Unknown, Verified 07/25/24 16:05) HIVES sulfamethoxazole [From BACTRIM] Allergy (Unknown, Verified 07/25/24 16:05) HIVES trimethoprim [From BACTRIM] Allergy (Unknown, Verified 07/25/24 16:05) HIVES HPI Comments Details: Kristine was seen in follow-up of her chronic kidney disease and hypertension. She has been feeling intermittently light headed but remarkably better after adjustment of her medications at the last visit. She does not have any episodes of diarrhea now. She has history of coarctation of aorta. Her blood pressure has been running low normal but better than before. She has history of 2 episodes of COVID and ever since she has been having issues with breathing and had multiple ER visits, but stable now. She has not had any further atrial fibrillation. She is followed up by her senior it business analyst. She does not have any chest pain, shortness of breath, palpitation, paroxysmal nocturnal dyspnea, orthopnea, pedal edema, orthostatic symptoms, hematuria. She does not take any nonsteroidal anti-inflammatories. Kirstine has not tolerated beta paulino in the past. She could not tolerate the spironolactone in the past due to hyperkalemia. Her stress test was negative in the past. She uses CPAP. She has no history of proteinuria. Doppler of her renal arteries did not show any critical renal artery stenosis in the past. Her recent serum creatinine has improved significantly. Her BP has gone up. [facility] Medical History Coarctation of aorta PDA (patent ductus arteriosus) Hypertension CKD (chronic kidney disease) stage 3, GFR 30-59 ml/min Surgical History S/P ablation of atrial fibrillation H/O section History of foot surgery H/O angioplasty Family History Brother Diabetes Father Hypertension Mother Hypertension Stroke Social History Alcohol intake: never Patient Tobacco Use Status: Never used Tobacco Physical Exam Vital Signs: Last Vital Signs Pulse 71 07/25/24 16:03 BP 150/60 H 07/25/24 16:03 Pulse Ox 96 07/25/24 16:03 Oxygen Delivery Method Room Air 07/25/24 16:03 BMI result Body Mass Index 34.4 Const General: comfortable and no acute distress Orientation/consciousness: patient oriented x3 HEENT Head: Yes normocephalic Mouth: Normal oral and palatal mucosa present Eyes EOM: EOMs intact bilaterally Neck Neck: Yes supple Resp Auscultation: clear to auscultation bilaterally Cardio Jugular venous distension: no JVD Rate: regular rate GI Palpation (GI): Soft to palpation Auscultation: normal bowel sounds General: Yes no CVA tenderness Back/Spine/Pelvis Back: no CVA tenderness Skin General skin exam: no rashes or lesions noted Neuro General: patient oriented x3 and moves all extremities Extrem General: Yes no pedal edema Results Reviewed Nephrology Results: Sodium 138 mmol/L (135-145) 05/29/24 Potassium 4.4 mmol/L (3.3-5.1) 05/29/24 Chloride 105 mmol/L (96-108) 05/29/24 Carbon Dioxide 24 mmol/L (22-29) 05/29/24 BUN 24 mg/dL (9-16) H 05/29/24 Creatinine 1.18 mg/dL (0.5-1.4) 05/29/24 Urine Protein Negative mg/dL (Neg-Trace) 05/29/24 Urine Creatinine 83.13 mg/dL 04/25/24 Protein/Creatinin Ratio TNP 04/25/24 Assessment & Plan Assessment & Plan (1) CKD (chronic kidney disease) stage 3, GFR 30-59 ml/min: Code(s): N18.30 - Chronic kidney disease, stage 3 unspecified Category: Medical Qualifiers: Chronic kidney disease stage 3 subtype: stage 3a (GFR 45-59) Qualified Code(s): N18.31 - Chronic kidney disease, stage 3a (2) Hypertension: Code(s): I10 - Essential (primary) hypertension Category: Medical Qualifiers: Hypertension type: renovascular hypertension Qualified Code(s): I15.0 - Renovascular hypertension Plan Kristine has JAKOB due to compromise in renal perfusion which has resolved . She is off chlorthalidone and on reduced the dosage of lisinopril, which I increased to 20 mg daily. She has CKD stage 3 due to vascular disease. Her volume status is optimal. She is watching her blood sugars closely. She may need more BP medications if BP goes up. She may be a candidate for Jardiance or Farxiga in the future. She avoids nonsteroidal anti-inflammatories. She will benefit from weight loss. I did not make any other medication changes today. Follow-up blood work ordered. Answered all questions Orders: Orders Creatinine 3 Weeks I15.0 - Renovascular hypertension, N18.31 - Chronic kidney disease, stage 3a Electrolytes 3 Weeks I15.0 - Renovascular hypertension, N18.31 - Chronic kidney disease, stage 3a Blood Urea Nitrogen 3 Weeks I15.0 - Renovascular hypertension, N18.31 - Chronic kidney disease, stage 3a Coding Level of Care Code Est Pt Level 4 (99847) Diagnoses Stage 3a chronic kidney disease N18.31 Chronic kidney disease stage 3 subtype: stage 3a (GFR 45-59) Renovascular hypertension I15.0 Hypertension type: renovascular hypertension
[2024-07-25 16:03] VITALS: BP 150/60; PULSE 71; O2SAT 96; BMI 34.4
== END 2024-07-25 16:25 | disposition home or self-care (01) ==
PROVIDERS: PCP Internal Medicine; Visit Provider Internal Medicine Nephrology
DX: I12.9 Hypertensive chronic kidney disease with stage 1 through stage 4 chronic kidney disease, or unspecified chronic kidney disease (principal); N18.31 Chronic kidney disease, stage 3a
CPT/HCPCS: 99214

== ENCOUNTER → 2024-07-25 15:18 | Outpatient (BNVA) | payer OTHER, SELFPAY | PROVIDERS: PCP Internal Medicine; Visit Provider Internal Medicine Nephrology ==

== ENCOUNTER 2024-08-16 16:12 | Outpatient (REF) | payer OTHER, SELFPAY ==
[2024-08-16 17:24] LABS: Appearance Urine Cloudy; Color Urine Yellow; Glucose Urine UA Negative (Negative); Leukocyte Esterase Urine Large (3+) (Negative); Nitrite Urine Negative (Negative); UMIC TRIGGER UA YES; Urine Blood Negative (Negative); Urine Ketones Negative (Negative); Urine Protein Negative (Neg-Trace)
[2024-08-16 17:33] LABS: Bacteria Urine 1+ (None Seen); Hyaline Casts Urine 0-2 /LPF (0-2); RBC Urine 0-2 /HPF (0-2); WBC Urine 21-50 /HPF (0-5)
[2024-08-16 18:11] LABS: Anion Gap 10 (12-20); Blood Urea Nitrogen 26 mg/dL (9-16); Carbon Dioxide 27 mmol/L (22-29); Chloride 104 mmol/L (96-108); Estimated Glomerular Filt Rate 41; Potassium 4.3 mmol/L (3.3-5.1); Sodium 137 mmol/L (135-145)
== END 2024-08-16 16:13 | disposition home or self-care (01) ==
LOC: HO.LAB 16:12
PROVIDERS: PCP Internal Medicine; Visit Provider Internal Medicine Nephrology
DX: N18.31 Chronic kidney disease, stage 3a (principal); I15.0 Renovascular hypertension; N17.9 Acute kidney failure, unspecified
CPT/HCPCS: 36415; 80051; 81001; 82565; 84520

== ENCOUNTER 2024-08-22 14:30 | Outpatient (AMB) | payer OTHER, SELFPAY ==
--- NOTE | 2024-08-22 14:31 | HO.NEPHOV ---
Vital Signs 08/22/24 14:33 Height 5 ft 5 in Weight 203 lb 6 oz BMI 33.8 BP 154/50 H Blood Pressure Location Lt brachial Position Sitting Pulse 66 Pulse Source Pulse Oximeter Pulse Oximetry (%) 100 Oxygen Delivery Method Room Air Intake Visit Reasons: 4 wks follow up/ Conf Cost And Risk Analysis Manager Required: No Accompanied by: Self / Same As Patient Allergies ciprofloxacin [From CIPRO] Allergy (Unknown, Verified 08/22/24 14:34) NAUSEA clarithromycin [From BIAXIN] Allergy (Unknown, Verified 08/22/24 14:34) SWELLING, HIVES Penicillins [PCN] Allergy (Unknown, Verified 08/22/24 14:34) HIVES sulfamethoxazole [From BACTRIM] Allergy (Unknown, Verified 08/22/24 14:34) HIVES trimethoprim [From BACTRIM] Allergy (Unknown, Verified 08/22/24 14:34) HIVES HPI Comments Details: Kristine was seen in follow-up of her chronic kidney disease and hypertension. She has been feeling SOB with wheezing and was seen by Dr Isaac. She has history of coarctation of aorta. She has history of 2 episodes of COVID . She has not had any further atrial fibrillation. She is followed up by her plumbing drafter. She does not have any chest pain, shortness of breath, palpitation, paroxysmal nocturnal dyspnea, orthopnea, pedal edema, orthostatic symptoms, hematuria. She does not take any nonsteroidal anti-inflammatories. Kristine has not tolerated beta paulino in the past. She could not tolerate the spironolactone in the past due to hyperkalemia. Her stress test was negative in the past. She uses CPAP. She has no history of proteinuria. Doppler of her renal arteries did not show any critical renal artery stenosis in the past. [facility] Medical History Coarctation of aorta PDA (patent ductus arteriosus) Hypertension CKD (chronic kidney disease) stage 3, GFR 30-59 ml/min Surgical History S/P ablation of atrial fibrillation H/O section History of foot surgery H/O angioplasty Family History Brother Diabetes Father Hypertension Mother Hypertension Stroke Social History Alcohol intake: never Patient Tobacco Use Status: Never used Tobacco Review of Systems Const All systems reviewed & are unremarkable except as noted in HPI and below Physical Exam Vital Signs: Last Vital Signs Pulse 66 08/22/24 14:33 BP 154/50 H 08/22/24 14:33 Pulse Ox 100 08/22/24 14:33 Oxygen Delivery Method Room Air 08/22/24 14:33 BMI result Body Mass Index 33.8 Const General: comfortable and no acute distress Orientation/consciousness: patient oriented x3 HEENT Head: Yes normocephalic Mouth: Normal oral and palatal mucosa present Eyes EOM: EOMs intact bilaterally Neck Neck: Yes supple Resp Auscultation: clear to auscultation bilaterally Cardio Jugular venous distension: no JVD Rate: regular rate GI Palpation (GI): Soft to palpation Auscultation: normal bowel sounds General: Yes no CVA tenderness Back/Spine/Pelvis Back: no CVA tenderness Skin General skin exam: no rashes or lesions noted Neuro General: patient oriented x3 and moves all extremities Extrem General: Yes no pedal edema Results Reviewed Nephrology Results: Sodium 137 mmol/L (135-145) 08/16/24 Potassium 4.3 mmol/L (3.3-5.1) 08/16/24 Chloride 104 mmol/L (96-108) 08/16/24 Carbon Dioxide 27 mmol/L (22-29) 08/16/24 BUN 26 mg/dL (9-16) H 08/16/24 Creatinine 1.33 mg/dL (0.5-1.4) 08/16/24 Urine Protein Negative mg/dL (Neg-Trace) 08/16/24 Urine Creatinine 83.13 mg/dL 04/25/24 Protein/Creatinin Ratio TNP 04/25/24 Assessment & Plan Assessment & Plan (1) CKD (chronic kidney disease) stage 3, GFR 30-59 ml/min: Code(s): N18.30 - Chronic kidney disease, stage 3 unspecified Category: Medical Qualifiers: Chronic kidney disease stage 3 subtype: stage 3a (GFR 45-59) Qualified Code(s): N18.31 - Chronic kidney disease, stage 3a (2) Hypertension: Code(s): I10 - Essential (primary) hypertension Category: Medical Qualifiers: Hypertension type: renovascular hypertension Qualified Code(s): I15.0 - Renovascular hypertension Plan Kristine has JAKOB due to compromise in renal perfusion which has resolved . She is off chlorthalidone and on reduced the dosage of lisinopril, which I increased to 20 mg daily. She has CKD stage 3 due to vascular disease. Her volume status is optimal. She is watching her blood sugars closely. She may need to go up on her lisinopril to 12.5 mg if her systolic BP goes up consistently over 140 She may be a candidate for Jardiance or Farxiga in the future. She avoids nonsteroidal anti-inflammatories. She will benefit from weight loss. I did not make any other medication changes today. Follow-up blood work ordered. Answered all questions Orders: Orders Creatinine 3 Months I15.0 - Renovascular hypertension, N18.31 - Chronic kidney disease, stage 3a Electrolytes 3 Months I15.0 - Renovascular hypertension, N18.31 - Chronic kidney disease, stage 3a Blood Urea Nitrogen 3 Months I15.0 - Renovascular hypertension, N18.31 - Chronic kidney disease, stage 3a Complete Blood Count Auto Diff 3 Months I15.0 - Renovascular hypertension, N18.31 - Chronic kidney disease, stage 3a Coding Level of Care Code Est Pt Level 4 (48955) Diagnoses Stage 3a chronic kidney disease N18.31 Chronic kidney disease stage 3 subtype: stage 3a (GFR 45-59) Renovascular hypertension I15.0 Hypertension type: renovascular hypertension
[2024-08-22 14:33] VITALS: BP 154/50; PULSE 66; O2SAT 100; BMI 33.8
== END 2024-08-22 15:29 | disposition home or self-care (01) ==
PROVIDERS: PCP Internal Medicine; Visit Provider Internal Medicine Nephrology
DX: I12.9 Hypertensive chronic kidney disease with stage 1 through stage 4 chronic kidney disease, or unspecified chronic kidney disease (principal); N18.31 Chronic kidney disease, stage 3a
CPT/HCPCS: 99214

== ENCOUNTER → 2024-08-22 14:30 | Outpatient (BNVA) | payer OTHER, SELFPAY | PROVIDERS: PCP Internal Medicine; Visit Provider Internal Medicine Nephrology ==

== ENCOUNTER 2024-10-03 16:13 | Outpatient (AMB) | payer OTHER, SELFPAY ==
--- NOTE | 2024-10-03 16:18 | HO.NEPHOV ---
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 She recently had SOB again with GI complaints. She was seen in [facility] [place] and had a CT scan chest abdomen and pelvis . It showed pulmonary edema as per radiology read and was given one dose of lasix with improvement. Her ECHO was unchanged and had low Hb needing transfusion. She did not have any endoscopy during hospitalization even though she is on blood thinner. She follows with Dr Isaac & Dr Bedolla. She has history of coarctation of aorta. She has history of 2 episodes of COVID . She has not had any further recent atrial fibrillation. She does not take any nonsteroidal anti-inflammatories. Kristine has not tolerated beta paulino in the past & could not tolerate the spironolactone in the past due to hyperkalemia. Her stress test was negative in the past. She uses CPAP. She has no history of proteinuria. Doppler of her renal arteries did not show any critical renal artery stenosis in the past. 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 Patient and daughter are quite concerned about these ongoing active issues. Her renal functions continue to remain stable. [facility] Medical History Coarctation of aorta PDA (patent ductus arteriosus) Hypertension CKD (chronic kidney disease) stage 3, GFR 30-59 ml/min Surgical History S/P ablation of atrial fibrillation H/O section History of foot surgery H/O angioplasty Family History Brother Diabetes Father Hypertension Mother Hypertension Stroke Social History Alcohol intake: never Patient Tobacco Use Status: Never used Tobacco Review of Systems Const All systems reviewed & are unremarkable except as noted in HPI and below Physical Exam Vital Signs: Last Vital Signs Pulse 70 10/03/24 16:19 BP 140/74 H 10/03/24 16:19 Pulse Ox 98 10/03/24 16:19 Oxygen Delivery Method Room Air 10/03/24 16:19 BMI result Body Mass Index 33.6 Const General: comfortable and no acute distress Orientation/consciousness: patient oriented x3 HEENT Head: Yes normocephalic Mouth: Normal oral and palatal mucosa present Eyes EOM: EOMs intact bilaterally Neck Neck: Yes supple Resp Auscultation: clear to auscultation bilaterally Cardio Jugular venous distension: no JVD Rate: regular rate GI Palpation (GI): Soft to palpation Auscultation: normal bowel sounds General: Yes no CVA tenderness Back/Spine/Pelvis Back: no CVA tenderness Skin General skin exam: no rashes or lesions noted Neuro General: patient oriented x3 and moves all extremities Extrem General: Yes no pedal edema Results Reviewed Nephrology Results: Sodium 137 mmol/L (135-145) 08/16/24 Potassium 4.3 mmol/L (3.3-5.1) 08/16/24 Chloride 104 mmol/L (96-108) 08/16/24 Carbon Dioxide 27 mmol/L (22-29) 08/16/24 BUN 26 mg/dL (9-16) H 08/16/24 Creatinine 1.33 mg/dL (0.5-1.4) 08/16/24 Urine Protein Negative mg/dL (Neg-Trace) 08/16/24 Assessment & Plan Assessment & Plan (1) CKD (chronic kidney disease) stage 3, GFR 30-59 ml/min: Code(s): N18.30 - Chronic kidney disease, stage 3 unspecified Category: Medical Qualifiers: Chronic kidney disease stage 3 subtype: stage 3a (GFR 45-59) Qualified Code(s): N18.31 - Chronic kidney disease, stage 3a (2) Hypertension: Code(s): I10 - Essential (primary) hypertension Category: Medical Qualifiers: Hypertension type: renovascular hypertension Qualified Code(s): I15.0 - Renovascular hypertension (3) Anemia: Code(s): D64.9 - Anemia, unspecified Category: Medical Qualifiers: Anemia type: other cause Other causes of anemia: other cause, not classified Qualified Code(s): D64.89 - Other specified anemias (4) Shortness of breath: Code(s): R06.02 - Shortness of breath Category: Medical (5) Abdominal pain: Code(s): R10.9 - Unspecified abdominal pain Category: Medical Qualifiers: Abdominal location: generalized Qualified Code(s): R10.84 - Generalized abdominal pain Zuleika Carmona has CKD 3 a and her renal functions are stable. She was not discharge on diuretics but I started lasix today. Her ECHO is essentially unchanegd but has features of diastolic dysfunction. She had features of pulmonary edema but her clinical exam and ECHO is not co relating. I wonder whether she has any pulmonary hemorrhage given CT scan finding/ drop in Hb/ Subjective SOB & being on anti coagulation. She may need ANCA/Anti GBM as well as bronchoscopy. She is going to follow up with Dr Bedolla. She will need upper and lower endoscopy. If her anemia is unexplained, she will need further hemolytic W/U, Heme consult and a bone marrow biopsy. Her renal function cannot explain her anemia. Her BP is well controlled. She has CKD stage 3 due to vascular disease. Her volume status is optimal. She is watching her blood sugars closely. She is on lisinopril. She may be a candidate for Jardiance or Farxiga in the future. She avoids nonsteroidal anti-inflammatories. She will benefit from weight loss. I did not make any other medication changes today. Follow-up blood work ordered. Time spent during this visit is 50 minutes. Answered all questions Orders: Orders Blood Urea Nitrogen 2 Weeks I15.0 - Renovascular hypertension, N18.31 - Chronic kidney disease, stage 3a Electrolytes 2 Weeks I15.0 - Renovascular hypertension, N18.31 - Chronic kidney disease, stage 3a Creatinine 2 Weeks I15.0 - Renovascular hypertension, N18.31 - Chronic kidney disease, stage 3a Medications: New furosemide (Lasix) Take 3 times a week 20 mg PO .Q 3 times a week 30 tabs 2RF Coding Level of Care Code Est Pt Level 5 (76347) Diagnoses Stage 3a chronic kidney disease N18.31 Chronic kidney disease stage 3 subtype: stage 3a (GFR 45-59) Renovascular hypertension I15.0 Hypertension type: renovascular hypertension Anemia due to other cause, not classified D64.89 Anemia type: other cause Other causes of anemia: other cause, not classified Shortness of breath R06.02 Generalized abdominal pain R10.84 Abdominal location: generalized
[2024-10-03 16:19] VITALS: BP 140/74; PULSE 70; O2SAT 98; BMI 33.6
== END 2024-10-03 17:13 | disposition home or self-care (01) ==
PROVIDERS: PCP Internal Medicine; Visit Provider Internal Medicine Nephrology
DX: N18.31 Chronic kidney disease, stage 3a (principal); I15.0 Renovascular hypertension; D64.89 Other specified anemias; R06.02 Shortness of breath; R10.84 Generalized abdominal pain
CPT/HCPCS: 99215

== ENCOUNTER 2024-10-18 14:52 | Outpatient (REF) | payer OTHER, SELFPAY ==
[2024-10-18 16:07] LABS: Anion Gap 13 (12-20); Blood Urea Nitrogen 22 mg/dL (9-16); Carbon Dioxide 26 mmol/L (22-29); Chloride 106 mmol/L (96-108); Estimated Glomerular Filt Rate 48; Sodium 141 mmol/L (135-145)
== END 2024-10-18 14:53 | disposition home or self-care (01) ==
LOC: HO.LAB 14:52
PROVIDERS: Visit Provider Internal Medicine Nephrology
DX: N18.31 Chronic kidney disease, stage 3a (principal); I15.0 Renovascular hypertension
CPT/HCPCS: 36415; 80051; 82565; 84520

== ENCOUNTER 2024-10-31 14:45 | Outpatient (AMB) | payer OTHER, SELFPAY ==
--- NOTE | 2024-10-31 15:02 | HO.NEPHOV ---
Vital Signs 10/31/24 15:04 Height 5 ft 5 in Weight 198 lb 8 oz BMI 33.0 BP 154/60 H Blood Pressure Location Lt brachial Position Sitting Pulse 66 Pulse Source Pulse Oximeter Pulse Oximetry (%) 98 Oxygen Delivery Method Room Air Intake Visit Reasons: 1mon follow up w/labs/LVM Accompanied by: Self / Same As Patient Allergies ciprofloxacin [From CIPRO] Allergy (Unknown, Verified 10/31/24 15:03) NAUSEA clarithromycin [From BIAXIN] Allergy (Unknown, Verified 10/31/24 15:03) SWELLING, HIVES Penicillins [PCN] Allergy (Unknown, Verified 10/31/24 15:03) HIVES sulfamethoxazole [From BACTRIM] Allergy (Unknown, Verified 10/31/24 15:03) HIVES trimethoprim [From BACTRIM] Allergy (Unknown, Verified 10/31/24 15:03) HIVES HPI Comments Details: Kristine was seen in follow-up of her chronic kidney disease and hypertension. Her SOB is better. She recent[place] [facility] [place] scan chest abdomen and pelvis . It showed pulmonary edema as per radiology read and was given one dose of lasix with improvement. Her ECHO was unchanged and had low Hb needing transfusion. She has seen Dr Carlton [place] [facility] [place] is due endoscopy. She follows with Dr Isaac . She has history of coarctation of aorta. She has history of 2 episodes of COVID . She has not had any further recent atrial fibrillation. She does not take any nonsteroidal anti-inflammatories. Kristine has not tolerated beta paulino in the past & could not tolerate the spironolactone in the past due to hyperkalemia. Her stress test was negative in the past. She uses CPAP. She has no history of proteinuria. Doppler of her renal arteries did not show any critical renal artery stenosis in the past. Her renal functions continue to remain stable. [facility] Medical History Coarctation of aorta PDA (patent ductus arteriosus) Hypertension CKD (chronic kidney disease) stage 3, GFR 30-59 ml/min Surgical History S/P ablation of atrial fibrillation H/O section History of foot surgery H/O angioplasty Family History Brother Diabetes Father Hypertension Mother Hypertension Stroke Social History Alcohol intake: never Patient Tobacco Use Status: Never used Tobacco Review of Systems Const All systems reviewed & are unremarkable except as noted in HPI and below Physical Exam Const General: comfortable and no acute distress Orientation/consciousness: patient oriented x3 HEENT Head: Yes normocephalic Mouth: Normal oral and palatal mucosa present Eyes EOM: EOMs intact bilaterally Neck Neck: Yes supple Resp Auscultation: clear to auscultation bilaterally Cardio Jugular venous distension: no JVD Rate: regular rate GI Palpation (GI): Soft to palpation Auscultation: normal bowel sounds General: Yes no CVA tenderness Back/Spine/Pelvis Back: no CVA tenderness Skin General skin exam: no rashes or lesions noted Neuro General: patient oriented x3 and moves all extremities Extrem General: Yes no pedal edema Results Reviewed Nephrology Results: Sodium 141 mmol/L (135-145) 10/18/24 Potassium 4.0 mmol/L (3.3-5.1) 10/18/24 Chloride 106 mmol/L (96-108) 10/18/24 Carbon Dioxide 26 mmol/L (22-29) 10/18/24 BUN 22 mg/dL (9-16) H 10/18/24 Creatinine 1.16 mg/dL (0.5-1.4) 10/18/24 Urine Protein Negative mg/dL (Neg-Trace) 08/16/24 Assessment & Plan Assessment & Plan (1) CKD (chronic kidney disease) stage 3, GFR 30-59 ml/min: Code(s): N18.30 - Chronic kidney disease, stage 3 unspecified Category: Medical Qualifiers: Chronic kidney disease stage 3 subtype: stage 3a (GFR 45-59) Qualified Code(s): N18.31 - Chronic kidney disease, stage 3a (2) Hypertension: Code(s): I10 - Essential (primary) hypertension Category: Medical Qualifiers: Hypertension type: renovascular hypertension Qualified Code(s): I15.0 - Renovascular hypertension Plan Kristine has CKD 3 A and her renal functions are stable. She should continue current dose of lasix . Her ECHO is essentially unchanged but has features of diastolic dysfunction. She may need ANCA/Anti GBM as well as bronchoscopy. She is going to follow up with Dr Carlton . She is due upper and lower endoscopy. Her BP is well controlled. She has CKD stage 3 due to vascular disease. Her volume status is optimal. She is watching her blood sugars closely. She is on lisinopril. She may be a candidate for Jardiance or Farxiga in the future. She avoids nonsteroidal anti-inflammatories. She will benefit from weight loss. I increased her lisinopril to 12.5 mg daily. I did not make any other medication changes today. Follow-up blood work ordered.Answered all questions Coding Level of Care Code Est Pt Level 4 (80099) Diagnoses Stage 3a chronic kidney disease N18.31 Chronic kidney disease stage 3 subtype: stage 3a (GFR 45-59) Renovascular hypertension I15.0 Hypertension type: renovascular hypertension
[2024-10-31 15:04] VITALS: BP 154/60; PULSE 66; O2SAT 98; BMI 33.0
== END 2024-10-31 15:32 | disposition home or self-care (01) ==
PROVIDERS: PCP Internal Medicine; Visit Provider Internal Medicine Nephrology
DX: I12.9 Hypertensive chronic kidney disease with stage 1 through stage 4 chronic kidney disease, or unspecified chronic kidney disease (principal); N18.31 Chronic kidney disease, stage 3a
CPT/HCPCS: 99214

== ENCOUNTER → 2024-10-31 14:45 | Outpatient (BNVA) | payer OTHER, SELFPAY | PROVIDERS: PCP Internal Medicine; Visit Provider Internal Medicine Nephrology ==

== ENCOUNTER 2025-01-09 16:03 | Outpatient (REF) | payer OTHER, SELFPAY ==
[2025-01-09 16:25] LABS: MANUAL DIFF FLAG NO
[2025-01-09 17:07] LABS: Basophils Percent Auto 0.4 % (0-2); Eosinophils Absolute Auto 0.2 X10*3/uL (0.0-0.4); Eosinophils Percent Auto 2.4 % (0-4); Hematocrit 33.8 % (37.0-47.0); Imm Gran Abs Auto 0.03 X10*3/uL (0.00-0.03); Imm Gran Pct Auto 0.4 % (0.0-0.4); Lymphocytes Absolute Auto 1.6 X10*3/uL (1.2-4.9); Lymphocytes Percent Auto 21.8 % (20-40); Mean Corpuscular HGB Conc 32.5 g/dl (31.0-35.0); Mean Corpuscular Hemoglobin 26.9 pg (27.0-33.0); Mean Corpuscular Volume 82.6 fL (80.0-98.0); Monocytes Absolute Auto 0.6 X10*3/uL (0.1-1.2); Monocytes Percent Auto 7.9 % (2-11); Neutrophils Absolute Auto 4.8 x10*3/uL (2.0-8.3); Neutrophils Percent Auto 67.1 % (45-73); Platelet Count 175 X10*3/uL (160-400); Red Blood Count 4.09 X10*6/uL (4.20-5.50); Red Cell Distribution Width 16.3 % (11.0-16.0); White Blood Count 7.1 X10*3/uL (4.8-10.8)
[2025-01-09 17:15] LABS: Appearance Urine Clear; Color Urine Yellow; Glucose Urine UA Negative (Negative); Leukocyte Esterase Urine Moderate (2+) (Negative); Nitrite Urine Negative (Negative); PH 5.5 (5.0-9.0); UMIC TRIGGER UA YES; Urine Blood Negative (Negative); Urine Ketones Negative (Negative); Urine Protein Negative (Neg-Trace)
[2025-01-09 17:21] LABS: Bacteria Urine Trace (None Seen); Hyaline Casts Urine 0-2 /LPF (0-2); RBC Urine 0-2 /HPF (0-2)
[2025-01-09 17:37] LABS: Anion Gap 13 (12-20); Blood Urea Nitrogen 37 mg/dL (9-16); Carbon Dioxide 27 mmol/L (22-29); Chloride 103 mmol/L (96-108); Estimated Glomerular Filt Rate 54; Iron 50 mcg/dL (30-160); Percent Iron Saturation 18 % (15-50); Potassium 4.2 mmol/L (3.3-5.1); Sodium 139 mmol/L (135-145); Total Iron Binding Capacity 283 mcg/dL (228-428); Unsaturated Iron Binding 233 ug/dL
[2025-01-09 17:53] LABS: Ferritin 42 ng/mL (10-250)
--- OUTSIDE RECORDS SUMMARY | 2025-01-09 19:15 | XMS_ITS | Clinical Summary ---
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 Role Phone Eva Reardon MD Primary Care Provider + Allergies Active Allergy Reactions Criticality Noted Date Comments Adhesive Tape Other (see comments) 07/06/2022 Aspirin Other (see comments) 07/06/2022 Ciprofloxacin Other (see comments) 01/26/2021 Clarithromycin Rash Low 01/19/2020 Erythromycin Other (see comments) 01/26/2021 Ibuprofen Other (see comments) 07/06/2022 Iodinated Contrast Media Other (see comments) 0 07/06/2022 Latex Other (see comments) 07/06/2022 Levofloxacin Other (see comments) 07/06/2022 Naproxen Other (see comments) 07/06/2022 Penicillins Rash Low 01/19/2020 Sulfamethoxazole-Trimethoprim Rash,Other (see comments) Low 01/19/2020 Medications apixaban (ELIQUIS) 5 MG tablet Take 1 tablet by mouth 2 (two) times a day Active fluticasone (FLONASE) 50 MCG/ACT nasal spray Active sertraline (ZOLOFT) 100 MG tablet Take 1.5 tablets by mouth 1 (one) time each day Active chlorthalidone 25 MG tablet Take 25 mg by mouth 1 (one) time each day Active simvastatin (ZOCOR) 20 MG tablet Take 20 mg by mouth every night Active pantoprazole (PROTONIX) 20 MG EC tablet Take 20 mg by mouth 07/26/2023 Active dilTIAZem (TIAZAC) 180 MG 24 hr capsule Take 1 capsule (180 mg total) by mouth 1 (one) time each day 90 capsule 3 08/01/2023 Active lisinopril 20 MG tablet Take 1 tablet (20 mg total) by mouth in the morning and 1 tablet (20 mg total) in the evening. 180 tablet 3 08/01/2023 Active Active Problems Problem Noted Date Diagnosed Date Paroxysmal atrial fibrillation 03/06/2023 Family history of congenital anomaly of cardiovascular system 03/03/2023 H/O cardiac surgery 03/03/2023 Hypertension 11/08/2021 Stage 3a chronic kidney disease 01/26/2021 Essential hypertension 01/26/2021 Resolved Problems Problem Noted Date Diagnosed Date Resolved Date Acquired hallux valgus 11/07/202211/07 Localized, primary osteoarth ritis of the ankle and/or foot 11/07/2022 11/07/2022 Obese class II 08/10/2022 11/07/2022 Coarctation of aorta 02/04/2022 022 Family history of congenital anomaly of cardiovascular system 02/04/2022 11/07/2022 H/O cardiac surgery 02/04/2022 11/07/20 22 Hyperlipidemia 02/04/2022 11/07/2022 Immunizations Name Administration Dates Next Due Pfizer SARS-COV-2 12/10/2021 Family History Medical History Relation Comments Hypertension Father Diabetes Sibling Relation Status Comments Father Mother Sibling Social History Tobacco Use Types Packs/Day Years Used Date Smoking Tobacco: Never Smokeless Tobacco: Never Tobacco Cessation:Counseling Given: Not Answered Alcohol Use Standard Drinks/Week Comments No 0 (1 standard drink = 0.6 oz pur e alcohol) Comments Unknown Sex and Gender Information Value Date Recorded Sex Assigned at Not on file Legal Sex Female 4:53 PM EST Gender Identity Not on file Sexual Orientation Not on file Last Filed Vital Signs Vital Sign Reading Time Taken Comments Blood Pressure 130/70 08/01/2023 3:51 PM EDT Pulse 72 08/01/2023 3:51 PM EDT Temperature - - Respiratory Rate - - Oxygen Saturation 94% 08/01/2023 3:51 PM EDT Inhaled Oxygen Concentration - - Weight 94.4 kg (208 lb 3.2 oz) 08/01/2023 3:51 P M EDT Height 165.1 cm (5' 5 ) 10/26/2020 12:00 PM EST Body Mass Index 34.65 10/26/2020 12:00 PM EST Plan of Treatment Health Maintenance Due Date Last Done Comments Breast Cancer Screening 1966 Pneumococcal Vaccine: Pediat rics (0 to 5 Years) and At-Risk Patients (6 to 64 Years) (1 of 2 - PCV) 1972 Hepatitis B Vaccine (1 of 3 - 19+ 3-dose series) 09/09 Colorectal Cancer Screening: Annual FOBT 2015 Colorectal Cancer Screening: Colonoscopy 2015 Colorectal Cancer Screening: Sigmoidoscopy 2015 Influenza Vaccine (#1) 2024 Insurance [facility] Care Teams Weed Cooking 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
--- OUTSIDE RECORDS SUMMARY | 2025-01-09 19:16 | XMS_ITS ---
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 Name Role Phone Eva Chen Primary Care Provider Unava Gonzales Meier [phone] Medications Medication SIG (Take, Route, Frequency, Duration) Notes Start Date End Date Status Voltaren 1 % as directed Externally Active Encounters Encounter Location Date Provider Diagnosis [facility] [address] [place] [address] 10/16/2023 Gonzales Saucedo Pain in left foot M79.672 ; Pain in right foot M79.671 ; Metatarsalgia, right foot M77.41 ; Metatarsalgia, left foot M77.42 ; Primary osteoarthritis, left ankle and foot M19.072 ; Hallux valgus (acquired), left foot M20.12 and Hallux valgus (acquired), right foot M20.11 Assessments Encounter Date Diagnosis (ICD Code) Assessment Notes Treatment Notes Treatment Clinical Notes Section Notes 10/16/2023 Pain in left foot (ICD-10 - M79.672) 10/16/2023 Pain in right foot (ICD-10 - M79.671) 10/16/2023 Metatarsalgia, right foot (ICD-10 - M77.41) 10/16/2023 Metatarsalgia, left foot (ICD-10 - M77.42) 10/16/2023 Primary osteoarthritis, left ankle and foot (ICD-10 - M19.072) 10/16/2023 Hallux valgus (acquired), left foot (ICD-10 - M20.12) 10/16/2023 Hallux valgus (acquired), right foot (ICD-10 - M20.11) Plan Of Treatment Medication Medication Name Sig Start Date Stop Date Notes Voltaren 1 % as directed Externally Next Appt Details Follow Up: 4 Weeks, Reason: Procedure Notes * Category Sub-Category Detail Notes Injection Sm. Joint, Bursa , J0702 In jection - sm/med joint bursa/capsule with 1cc of 1 percent Xylo.pl with 3mg Celestone Soluspan utilizing aseptic technique. The patient tolerated the procedure well. A dry sterile dressing was applied. Post injection instructions were dispensed, verbally discussed, and confirmed understood by the patient. I explained that a steroid and local anesthetic injection usually decreases pain and inflammation. I explained the possible complications including but not limited to signs/symptoms of steroid flare, change/deviation in toe position, infection, bruising, atrophy, discoloration of skin, and that additional injections may be necessary. Patient relates post-procedural pain assessment improved at ( 0-1) out of 10, RIGHT2-4th mtpj's Med: Joint,Bursa (Sinus Tarsi,AJ) , J0702 Injection #1 Med/Ankle joint bursa/capsule 1cc 1% Xylo.pl + 3mg Celestone Soluspan utilizing aseptic technique. The patient tolerated the procedure well. A dry sterile dressing was applied. Post injection instructions were dispensed, verbally discussed, and confirmed understood by the patient. I explained that a steroid and local anesthetic injection usually decreases pain and inflammation. I explained the possible complications including but not limited to signs/symptoms of steroid flare, change/deviation in toe position, infection, bruising, atrophy, discoloration of skin, additional injections may be necessary, LEFT CC joint Progress Notes * Kristine BURGESS LDOB:[birth year] (59 yo F)Acc No.[id number]:10/16/2023 Progress Notes Patient:?Kristine BURGESS Provider:?Gonzales Saucedo DPM :1965???Age:58 Y???Sex:Female D ate:10/16/2023 Address:[address] [place], [id number] Pcp:Eva Chen Subjective: * Chief Complaints: * ??? * HPI: ???Foot Pain:?Nature:?sharp, swelling, tenderness.?Location?Top, Forefoot, Right and outside left midfoot/rf.?Duration:?1 month--right foot and 1.5 wk left foot.?Onset/Cause:?due to compensation for medial femoral epiconyle stress fx left.?Course:?worse.?Aggrevated:?any pressure, standing, walking, shoes.?Treatments:?rest.?Quality/Severity?8 to 10, scale 1-10 right and , 9, scale 1-10-left.? * ROS:?General/Constitutional:?Nausea?denies.?Vomiting?denies.?Hunger Thirst?denies.?Loss appetite?denies.?Chills?denies.?Fatigue?denies.?Fever?denies.?Night Sweats?denies.?Unexplained weight loss?denies.?Unexplained weight gain?denies.?HEENTM:?Dentures?denies.?Dizziness?denies.?Glasses/contacts?denies.?Retinopathy?de nies.?Blurred/double vision?denies.?TMJ?denies.?Discharge/drainage?denies.?Implants?denies.?Sore throat?denies.?Dental implants?denies.?Hard of hearing ?denies.?Difficulty chewing/swallowing/speaking?denies.?Nose bleeds?denies.?Sore mouth?denies.?Respiratory:?On Oxygen?denies.?Pneumonia/pleurisy?denies.?Bronchitis?denies.?Emphysema?denies.?C oughing?denies.?Cough blood?denies.?Shortness of breath?denies.?Wheezing?denies.?Cardiovascular:?Pacemaker?denies.?MVP?denies.?WPW?denies.?CHF?denies.?Heart attack?denies.?Septal defect?denies.?Rapid beat?denies.?Chest pain ?denies.?Atrial Fib.?denies.?Murmur/Palpitations?denies.?Gastrointestinal:?Hemorrhoids?denies.?Stomach/Abdominal pain?denies.?Dark blood stool?denies.?Irritable bowel ?denies.?Constipation?denies.?Diarrhea?denies.?Hematology:?Swelling?denies.?Clots?denies.?Varicose Veins?denies.?Bruising?denies.?Bleeding problem?denies.?Genitourinary:?Blood urine?denies.?Frequent/Painfu/urination/bladder control?denies.?Kidney stones?denies.?Infection (UTI)?denies.?Nephropathy?denies.?sex trans dis (STD)?denies.?Prostate?denies.?Musculoskeletal:?Hammertoes?denies.?Bunions?denies.?Back Pain?denies.?Muscle Cramps/ Resting?denies.?Muscle cramps / walking?denies.?Generalized aches and pains?denies.?Weakness?denies.?Integ.:?Terry?denies.?Scars?denies.?Corns/calluses?denies.?Ingrown nails?denies.?Painful nails?denies.?Open Sores?denies.?Rashes?denies.?Neurologic:?Difficulty sleeping?denies.?Brain disorder?denies.?Numbness?denies.?Balance trouble?denies.?Confusion?denies.?Fainting/blackouts?denies.?Tingling?denies.?Tr emors?denies.? * Medical History:? Objective: * Vitals:? * Examination: ???General Examination: ?GENERAL APPEARANCE:?pleasant, alert, well nourished, well developed, well hydrated, with good attention to hygene/body habitus, and in no acute distress.?ORIENTED:?person,place, and time.?Neurological: ?SENSORY:?Neurological exam demonstrates pop dorsum left calcaneo-cuboid joint and pop dorsum right 2-4th mt's and mtpj's.?TINEL'S COMPRESSION:?Negative tarsal tunnel, vivien pedis, and medial calcaneal nerves B/L.?BABINSKI REFLEX:?absent.?Neuroma Pain: ?PALPATION:?No interspace pain noted on palpation.?Vascular: ?DP PULSES (B):?12/17, B/L.?PT PULSES (B):? 11/16, B/L.?CAPILLARY FILL TIME:?3 secs. per digit, B/L.?TROPHIC CONDITION-TEXTURE/ELASTICITY/TURGOR/HAIR GROWTH (B):?normal, B/L.?TEMPERTURE GRADIENT (C):?warm to cool, proximal to distal, B/L.?PIGMENTATION:?normal, B/L.?EDEMA (C):? 1/, Right ff.?TELANGECTASIA:?absent.?VARICOSITIES:?absent.?Dermatologic: ?SKIN FINDINGS:?Skin exam reveals normal texture, elasticity, and tugor. There are no masses. The interspaces are clear, B/L .?Orthopedic: ?MUSCLE STRENGTH:?5/5 all groups in a symmetrical fashion , B/L.?GAIT ABNORMALITY:?pronated, abducted, B/L.?FOOT MORPHOLOGY:? Pes Planus structure, B/L.?BUNION:? Medially prominent 1st MPJ, B/L, Lateral tracking 1st MPJ incompletely reducable, Dorsally prominent 1st MPJ , (+) Pain on palpation, RIGHT.? Assessment: * Assessment: 1.?Pain in left foot - M79.6 73 (Primary)???2.?Pain in right foot - M79.671???3.?Metatarsalgia, right foot - M77.41???4.?Metatarsalgia, left foot - M77.42???5.?Primary osteoarthritis, left ankle and foot - M19.072 ??6.?Hallux valgus (acquired), left foot - M20.12???7.?Hallux valgus (acquired), right foot - M20.11??? Plan: * Treatment: * Procedures:?Injection:?Sm. Joint, Bursa? Injection - sm/med joint bursa/capsule with 1cc of 1 percent Xylo.pl with 3mg Celestone Soluspan utilizing aseptic technique. The patient tolerated the procedure well. A dry sterile dressing was applied. Post injection instructions were dispensed, verbally discussed, and confirmed understood by the patient. I explained that a steroid and local anesthetic injection usually decreases pain and inflammation. I explained the possible complications including but not limited to signs/symptoms of steroid flare, change/deviation in toe position, infection, bruising, atrophy, discoloration of skin, and that additional injections may be necessary. Patient relates post-procedural pain assessment improved at ( 0-1) out of 10, RIGHT2-4th mtpj's.?Med: Joint,Bursa (Sinus Tarsi,AJ)? Injection #1 Med/Ankle joint bursa/capsule 1cc 1% Xylo.pl + 3mg Celestone Soluspan utilizing aseptic technique. The patient tolerated the procedure well. A dry sterile dressing was applied. Post injection instructions were dispensed, verbally discussed, and confirmed understood by the patient. I explained that a steroid and local anesthetic injection usually decreases pain and inflammation. I explained the possible complications including but not limited to signs/symptoms of steroid flare, change/deviation in toe position, infection, bruising, atrophy, discoloration of skin, additional injections may be necessary, LEFT CC joint.? * Procedure Codes:?25023 X-RAY EXAM OF LEFT FOOT 3V, Modifiers: 26 , [place], [address] X- RAY EXAM OF RIGHT FOOT 3V, Modifiers: 26 , RT, J0702 INJ BETAMETHSN ACTAT&SOD PHOSPH-3MG, Units: 2.00 , DRAIN/INJECT, JOINT/BURSA, Modifiers: XS , DRAIN/INJECT, JOINT/BURSA, Modifiers: XS * Follow Up:?4 Weeks * Images: * The named appointment provid er may or may not be the originator of this progress note, and it is not deemed complete until electronically signed by the appointment provider. Sign off status: Pending * Provider:?Gonzales Saucedo DPM Date:? 023 Generated for Main lara/Catherine/Juvenalsmitting on:?01/09/2025 07:15 PM EST History and Physical Notes * HPI (History of Present Illness) Category Sub-Category Detail Notes Category Not es Foot Pain Aggrevated: any pressure, standing, walk ing, shoes Onset/Cause: due to compensation for medial femoral epiconyle stress fx left Course: worse Duration: 1 month--right foot and 1.5 wk left foot Nature: sharp, swelling, ten derness Treatments: rest Quality/Severity 8 to 10, scale 1-10 right and , 9, scale 1-10-left Location Top, Forefoot, Right and outside left midfoot/rf Examination Category Sub-Category Detail Notes Category Not es Neuroma Pain PALPATION: No interspace pain noted on palpation Neurological SENSORY: Neurological exa m demonstrates pop dorsum left calcaneo-cuboid joint and pop dorsum right 2-4th mt's and mtpj's BABINSKI REFLEX: absent TINEL'S COMPRESSION: Negative tarsal emeka leticia, vivien pedis, and medial calcaneal nerves B/L Dermatologic SKIN FINDINGS: Skin exam reveal s normal texture, elasticity, and tugor. There are no masses. The interspaces are clear, B/L Orthopedic GAIT ABNORMALITY: pronated, abducted, B/L FOOT MORPHOLOGY: Pes Planus structure , B/L BUNION: Medially prominent 1 st MPJ, B/L, Lateral tracking 1st MPJ incompletely reducable, Dorsally prominent 1st MPJ , (+) Pain on palpation, RIGHT MUSCLE STRENGTH: 5/5 all groups in a symmetrical fashion , B/L General Examination GENERAL APPEARANCE: pleasant , alert, well nourished, well developed, well hydrated, with good attention to hygene/body habitus, and in no acute distress ORIENTED: person,place, and ti me Vascular DP PULSES (B): 2/4, B/L PT PULSES (B): /, B/L CAPILLARY FILL TIME: 3 secs. per digit, B/L TEMPERTURE GRADIENT (C): warm to cool, p roximal to distal, B/L TROPHIC CONDITION-TEXTURE/ELASTICITY/TURGOR/HAIR GROWTH (B): normal, B/L EDEMA (C): 11/16, Right ff TELANGECTASIA: absent VARICOSITIES: absent PIGMENTATION: normal, B/L
--- OUTSIDE RECORDS SUMMARY | 2025-01-09 19:16 | XMS_ITS | Clinical Summary ---
Author Organization [facility] Address [address] [place] [address] Phone Care Team Providers Care Ski Topper Name Role Phone Eva Watson MD Primary Care Prov ider Allergies Active Allergy Reactions Criticality Noted Date Comments Adhesive Rash 12/02/2024 Ciprofloxacin Nausea And Vomiting 09/29/2005 Clarithromycin Swelling 12/20/2013 Doxycycline Itching 10/05/2015 Other Reaction(s): OTHER Gas bloating Ibuprofen 06/26/2023 On blood thinners, can not take Latex Other,Rash 07/06/2022 Penicillins Hives High 08/07/2012 Sulfamethoxazole-Trimetho prim 09/29/2005 Other Reaction(s): Rash/Dermatitis Medications apixaban (ELIQUIS) 5 mg tablet Take 1 tablet (5 mg total) by mouth 2 (two) times a day. 1 Active calcium citrate-vitamin D3 200 mg-6.25 mcg (250 unit) tablet Take by mouth 1 (one) time each day. Active cholecalciferol (VITAMIN D-3) 50 mcg (2,000 unit) tablet Take 1 tablet (2,000 Units total) by mouth 1 (one) time each day. 3 Active clindamycin (CLEOCIN) 150 mg capsule Take 4 capsules (600 mg total) by mouth. 3 Active dilTIAZem XR (DILACOR XR) 180 mg 24 hr capsule Take 1 capsule (180 mg total) by mouth. 3 Active pantoprazole (PROTONIX) 20 mg EC tablet Take 1 tablet (20 mg total) by mouth 2 (two) times a day. Active simvastatin (ZOCOR) 20 mg tablet Take 1 tablet (20 mg total) by mouth. 3 Active furosemide (LASIX) 20 mg tablet Take by mouth. Active fluticasone propionate (FLONASE) 50 mcg/actuation nasal spray USE 2 SPRAYS INTO EACH NOSTRIL ONCE DAILY 16 mL 1 5 Active ferrous sulfate 325 mg (65 mg iron) EC tablet Take 1 tablet (325 mg total) by mouth 2 (two) times a day. Do not crush, chew, or split. Active lisinopriL (PRINIVIL,ZESTR IL) 2.5 mg tablet 5 Active sertraline (ZOLOFT) 100 mg tablet Take 2 tablets (200 mg total) by mouth 1 (one) time each day. 180 each 3 5 12/02/19 26 Active azithromycin (ZITHROMAX) 250 mg tablet Take 2 tabs on day one and then 1 tab for the next 4 days 6 tablet 5 Active albuterol HFA (PROAIR HFA ; PROVENTIL HFA ; VENTOLIN HFA) 90 mcg/actuation inhaler Inhale 2 Puffs into the lungs every 4 hours as needed. 12/26/19 25 Discontinu ed(Patient Discharge) Active Problems Problem Noted Date Diagnosed Date Breast complaint 10/18/2024 Assessment & Plan (10/18/2024 2:11 PM EST): I reassured Josué that I see no abnormalities of her right breast. Given her symptoms of pain have resolved, can monitor. If it continues to recur, can refer to Breast Clinic. In the meantime, can try moisturizers and possibly OTC Lotrimin for her skin in case she has a low grade cutaneous candidiasis. She agreed. Obesity (BMI 30.0-34.9) 11/27/2023 Severe obesity with body mas s index (BMI) of 35.0 to 39.9 with comorbidity 08/12/2022 Stage 3a chronic kidney disease 01/26/2021 Assessment & Plan (12/02/2024 4:04 PM EST): Follows regularly with nephrology, kidney function improved. Will continue to monitor. Obstructive sleep apnea 11/15/2020 Overview (12/27/2023): [facility] sleep medicine. Rec AUto CPAP 8-15 cmH2O [facility] [place] Polysomnogram: Date 10/28/2020; Wt 209#; BMI 35; SE 66%; SM 73%; REM 12%; AHI 24, REM AHI 22, Central apneas 1; Obstructive apneas 0; Mixed apneas 0; hypopneas 107; average oxygen saturation 96% (lowest 87%); PLMs 15. History of 2019 novel coronavirus disease (COVID -19) 06/04/2020 Overview (12/27/2023): May 2020 Acute gastric ulcer without hemorrhage or perfor ation 09/12/2019 Adjustment disorder with mixed anxiety and depre ssed mood 01/29/2019 Anxiety 09/20/2018 Cyst of right breast 08/17/2018 Overview (12/27/2023): Last Assessment & Plan: Reviewed recent normal imaging. If note resolving in 1-2 mos, return and we will schedule US. Lone atrial fibrillation 12/28/2017 Assessment & Plan (12/02/2024 4:04 PM EST): Currently asymptomatic. Follows with cardiology. Takes Apixaban 5mg day. Continue same medication. CKD (chronic kidney disease), stage III 12/28/19 18 HSV (herpes simplex virus) infection 08/11/2016 Cervical spondylosis with radiculopathy 07/26/20 16 Mild anemia 05/28/2015 Hyperlipidemia with target LDL less than 130 12/2012 Overview (12/27/2023): IMO update Assessment & Plan (12/02/2024 4:04 PM EST): Last LDL 102. Takes Simvastatin 20mg day. Continue same regimen. Allergic rhinitis 11/15/2007 Essential hypertension, benign 09/29/2005 Assessment & Plan (12/02/2024 4:04 PM EST): Well controlled. Currently on Lisinopril 12.5 mg a day, furosemide 20mg day. Follows regularly with nephrology. Will continue same regimen. Recommended a low salt diet and regular exercise. Coarctation of aorta (preductal) (postductal) Overview (12/27/2023): 1967 PDA 1973: Coarctation surgery 1986: Angioplasty 2004: Cardiac Cath Encounters Date Type Department Care Team Description 12/26/2024 3:00 PM EST Office Visit Adult Medicine [address] [phone] Trudy Baez PA Acute recurrent maxillary sinusitis (Primary Dx) 12/13/2024 Telephone Pulmonolgy [facility] [address] [phone] Amy Bishop MA DME request [facility] [address] [phone] Ana Isaac MD 12/06/2024 3:30 PM EST Office Visit [facility] - [facility] [address] [place] [address] Radu Stiles NP Symptoms of upper respiratory infection (URI) (Primary Dx); COVID 12/05/2024 Telephone Adult Medicine [address] [phone] Eva Espinoza MD Sore Throat 12/04/2024 3:16 PM EST - 12/04/2024 11:59 PM EST Hospital Encounter Radiology Department - [address] [phone] Thyroid nodule Discharge Disposition: Home or Self Care 12/02/2024 2:30 PM EST Office Visit [facility] - [address] [phone] Eva Espinoza MD Essential hypertension, benign (Primary Dx); Lone atrial fibrillation (CMS/HCC); Hyperlipidemia with target LDL less than 130; Stage 3a chronic kidney disease (CMS/HCC); Thyroid nodule; Encounter for screening involving social determinants of health (SDoH); Screening for depression 11/29/2024 2:55 PM EST - 11/29/2024 11:59 PM EST Hospital Encounter CT Scan - [address] [phone] Pulmonary nodule Discharge Disposition: Home or Self Care 11/27/2024 Telephone Pulmonolgy - [address] [place] [phone] Amy Bishop MA DME request 11/26/2024 4:15 PM EST - 11/26/2024 11:59 PM EST Hospital Encounter XRAY - [address] [phone] Congestive heart failure, unspecified HF chronicity, unspecified heart failure type (CMS/HCC) Discharge Disposition: Home or Self Care 10/17/2024 3:45 PM EST Office Visit Obstetrics and Gynecology - [address] [phone] Parul Murillo MD Encounter for gynecological examination without abnormal finding (Primary Dx); Breast complaint from Last 3 Months Immunizations Name Administration Dates Next Due Influenza Quadravalent, MDCK , 0.5ml, preservative free (Flucelvax) 6mo and older 09/15/2021,10/07/2020 Td Tetanus diptheria (Tdvax) 7yo and older 05/22 Tdap Tetanus diptheria acell ular pertussis (Boostrix; Adacel) 7yo and older 05/02/2016 Surgical History Surgery Date Site/Laterality Comments BUNIONECTOMY 1994 PROCEDURE: MT CORRJ HLX VLGS BNCTY SESMDC W/DOUBLE OSTEOTOMY; COMMENT: right foot SECTION PROCEDURE: MT DELIVERY ONLY; COMMENT: x2 CARDIAC CATHETERIZATION 2003 PROCEDURE: HISTORICAL CARDIAC CATH OTHER SURGICAL HISTORY 1966 PROCEDURE: MT REPAIR PATENT DUCTUS ARTERIOSUS LIGATION OTHER SURGICAL HISTORY 1973 PROCEDURE: HISTORY OTHER; COMMENT: repair of coarctation of aorta ANGIOPLASTY 1984 PROCEDURE: HISTORICAL ANGIOPLASTY OTHER SURGICAL HISTORY PROCEDURE: ---- OTHER ----; COMMENT: nava eye, Glaucoma BREAST BIOPSY 2020 Left PROCEDURE: BX BREAST; PERC NEEDLE CORE W/IMAG GUID Medical History Medical History Date Comments Coarctation of aorta (preduc lary) (postductal) 1972 DX:Coarctation of aorta (pre ductal) (postductal); COMMENT: Surgery w/plastic bypass Postsurgical percutaneous transluminal coronary angioplasty status 1985 DX:Postsurgical percutaneous transluminal coronary angioplasty status Patent ductus arteriosus 1966 DX:Rubio nt ductus arteriosus; COMMENT: Surgically fixed at 6 months old Mixed hyperlipidemia DX:Mixed hy perlipidemia Allergic rhinitis DX:Allergic rh initis S/P cardiac catheterization DX:S /P cardiac catheterization Mild anemia 05/28/2015 DX:Mild anemia HTN (hypertension) DX:HTN (hyper tension); COMMENT: [facility] Cervical spondylosis with radiculopathy DX:Cervical spondylosis with radiculopathy Cervical spondylosis with radiculopathy DX:Cervical spondylosis with radiculopathy CKD (chronic kidney disease) , stage III (CMS/HCC) 12/28/2017 DX:CKD (chronic kidney disea se), stage III (HCC) Lone atrial fibrillation (CMS/HCC) 12/28/2017 DX:Lone atrial fibrillation (HCC) Dysplastic nevus 09/05/2018 DX:Dysplastic n evus; COMMENT: Severe atypia - Center upper back Anxiety 09/20/2018 DX:Anxiety Severe obesity with body mas s index (BMI) of 35.0 to 39.9 with comorbidity (CMS/HCC) 08/12/2022 DX:Severe obesity with body mass index (BMI) of 35.0 to 39.9 with comorbidity (HCC) History of COVID-19 10/23/2023 DX:History o f COVID-19 Family History Medical History Relation Name Comments Breast cancer Aunt 1 m 40s everywheres - breast, LNs, liver, not sure of primary. MGM as well Other: cancer other Aunt 2 maternal aunt, ?origin Lymphoma Brother hodgkins Other: Cardiac abnormalities Daughter PDA Coronary artery disease Father Hypertension Father Other: cancer other Maternal Grandmother ? Stroke Mother Other: cardiac anomalies Son 1 DIANE ROWED AORTA + PDA Autoimmune disease Neg Hx Colon cancer Neg Hx Diabetes Neg Hx Heart attack Neg Hx Heart failure Neg Hx Hyperlipidemia Neg Hx Mental illness Neg Hx Ovarian cancer Neg Hx Pancreatic cancer Neg Hx Sleep apnea Neg Hx Thyroid disease Neg Hx Uterine cancer Neg Hx Relation Name Status Comments Aunt 1 m 40s Aunt 2 Brother Diabetes; HTN; PDA Daughter Alive 8 - PDA Father (Age 50) MD with hy pertension; hypercholesterolemia Maternal Grandfather (Age 68) CV A Maternal Grandmother (Age 50s) C ancer, uncertain of the type - metastasized Mother (Age 60) CVA - Cere bral Hemorrhage; obesity Paternal Grandfather (Age late 7 0s) Old age Paternal Grandmother (Age 92) Ol d age Son 1 Son 2 Alive 13 - PDA, coarc tation of aorta, bicuspid arotic valve Social History Tobacco Use Types Packs/Day Years Used Date Smoking Tobacco: Former Cigarettes 1 16.1 0 04/23/1982 - 06/15/1998 Smokeless Tobacco: Never Tobacco Cessation:Counseling Given: Not Answered Alcohol Use Standard Drinks/Week Comments Not Currently 0 (1 standard drink = 0.6 oz pur e alcohol) Housing Instability Answer Date Recorde d Are you worried that in the next 2 months you may not have stable housing? No 12/01/2024 Food Access & Nutrition Answer Date Rec orded Do you have access to a vari ety of food including fruits and vegetables? Yes 12/01/2024 Access to Healthcare Answer Date Record ed Within the last 3 months, drew buenrostro many times did you visit the emergency department for your medical care? 2 12/01/2024 Health Literacy Answer Date Recorded How often do you need to hav e someone help you when you read instructions, pamphlets, or other written material from your doctor or pharmacy? Never 12/01/2024 Caregiver: How often do you need to have someone help you when you read instructions, pamphlets, or other written material from your doctor or pharmacy? Not on file 12/01/2024 Financial Risk Answer Date Recorded How hard is it for you to pa y for the very basics like food, housing, medical care, and air conditioning / heating? Not very hard 12/01/2024 Transportation Answer Date Recorded Has the lack of transportati on kept you from meetings, work, or from getting things needed for daily living? No Has the lack of transportati on kept you from medical appointments or from getting medications? No 12/01/2024 Social Isolation Answer Date Recorded How often do you feel lonely or isolated from th ose around you? Never 12/01/2024 Food Risk Answer Date Recorded Within the past 12 months we worried whether our food would run out before we got money to buy more. Never true 12/01/2024 Within the past 12 months th e food we bought just didn't last and we didn't have money to get more. Never true 12/01/2024 Dependent Care Answer Date Recorded Do you need help finding or paying for care for your loved ones. For example, child welfare social worker or elderly care for an older adult? No 12/01/2024 Education Answer Date Recorded Do you think completing more education or training, like finishing a GED, going to college, or learning a trade, would be helpful for you? No 12/01/2024 Employment and Income Answer Date Recor ded During the last four weeks, have you been actively looking for work? No 12/01/2024 Living Situation Answer Date Recorded What is your living situation? 0 12/01/2024 Comments No Sex and Gender Information Value Date Recorded Sex Assigned at Not on file Legal Sex Female 12:18 PM EST Gender Identity Not on file Sexual Orientation Not on file Obstetrics History Para Term AB IAB SAB Ectopic Multiple Livin g Live Births 3 2 Date Outcome GA Total Labor Labor/2nd/3rd Weight Sex Type Anes PTL Karine A1 A5 Name Clin Last Filed Vital Signs Vital Sign Reading Time Taken Comments Blood Pressure 133/53 12/26/2024 3:10 PM EST Pulse 68 12/26/2024 3:10 PM EST Temperature 36.7 ??C (98 ??F) 12/26/2024 3:10 PM EST Respiratory Rate 15 12/26/2024 3:10 PM EST Oxygen Saturation 97% 12/06/2024 3:30 PM EST Inhaled Oxygen Concentration - - Weight 91.3 kg (201 lb 3.2 oz) 12/26/2024 3:10 P M EST Height 165.1 cm (5' 5 ) 12/26/2024 3:10 PM EST Body Mass Index 33.48 12/26/2024 3:10 PM EST Plan of Treatment Upcoming Encounters Date Type Department Care Team (Late st Contact Info) Description 05/30/2025 3:00 PM EDT Office Visit Adult Medicine [facility] - [address] [phone] Eva Watson MD [address] [place] [address] 07/01/2025 10:30 AM EDT Office Visit Pulmonolgy - [facility] [address] [facility] [address] [place] [phone] Ana Isaac MD [address] [facility] [address] [place] [address] 07/21/2025 4:00 PM EDT Appointment Radiology Department - [address] [phone] Health Maintenance Due Date Last Done Comments Hepatitis B Vaccines (1 of 3 - 19+ 3-dose series) 1985 Pneumococcal Vaccine: 50+ Years (1 of 2 - PCV) 1985 Pneumococcal Vaccine: Pediatrics (0 to 5 Years) and At-Risk Patients (6 to 64 Years) (1 of 2 - PCV) 1985 Zoster Vaccines (1 of 2) 1985 HIV Screening 10/22/2022 COVID-19 Vaccine ( season) 2024 09/16/2022, 12/10/2021, 02/18/2021, Additional history exists Hypertension/CHF/CAD Annual BMP Blood Test 05/24/2025 05/24/2024, 05/24/2024 Breast Cancer Screening 07/13/2025 07/13/20 24, 07/13/2024, 08/02/2023, Additional history exists Depression Screening 12/01/2025 12/01/2024 Social Influencers of Health Screening 12/01/2025 12/01/2024 Cervical Cancer Screening: HPV 12/15/2025 12/15/2020 Colorectal Cancer Screening: Colonoscopy 01/01/2026 01/01/2021 DTaP,Tdap,and Td Vaccines (3 - Td or Tdap) 05/02/2026 05/02/2016, 05/22/2006 Cholesterol Screening (Lipid Panel) 05/24/2029 05/24/2024, 05/24/2024 Osteoporosis Screening (Bone Density Screening) 08/03/2038 08/03/2023, 08/03/2023, 10/02/2019 Influenza Vaccine Discontinued 09/15/2021, 10/07/2020 Hepatitis C Screening Completed 09/26/2022 HIB Vaccines Aged Out No longer eligi ble based on patient's age to complete this topic HPV Vaccines Aged Out No longer eligi ble based on patient's age to complete this topic Hepatitis A Vaccines Aged Out No long er eligible based on patient's age to complete this topic IPV Vaccines Aged Out No longer eligi ble based on patient's age to complete this topic MMR Vaccines Aged Out No longer eligi ble based on patient's age to complete this topic Meningococcal ACWY Vaccine Aged Out N o longer eligible based on patient's age to complete this topic Meningococcal B Vacine Aged Out No lo nger eligible based on patient's age to complete this topic RSV Immunization Patients Under 20 months Aged Out No longer eligible based on patient's age to complete this topic Varicella Vaccines Aged Out No longer eligible based on patient's age to complete this topic Procedures Procedure Name Priority Date/Time Associated Diagnosis Comments POC RAPID [id number], MOLECULAR Routine 12/06/2024 3:38 PM EST Symptoms of upper respiratory infection (URI) US HEAD NECK SOFT TISSUE Routine 12/04/2024 3:32 PM EST Thyroid nodule CT CHEST WO CONTRAST Routine 11/29/2024 3:04 PM EST Pulmonary nodule XR CHEST 2 VIEWS Routine 11/26/2024 4:31 PM EST Congestive heart failure, unspecified HF chronicity, unspecified heart failure type (CMS/HCC) SCREENING MAMMOGRAPHY BI 2-VIEW BREAST INC CAD Routine 07/13/2024 10:17 AM EDT Encounter for screening mammogram for malignant neoplasm of breast ANNUAL BMP BLOOD TEST Routine 05/24/2024 LIPID PANEL Routine 05/24/2024 DEXA SCAN Routine 08/03/2023 HEPATITIS C SCREENING Routine 09/26/2022 COLONOSCOPY Routine 01/01/2021 HPV Routine 12/15/2020 from Last 3 Months or Most Recently Relevant to Health Maintenance Results * (ABNORMAL) Poc Rapid [id number], MOLECULAR (12/06/2024 3:38 PM EST) COVID-19/SARS- COV-2 Rapid POC Positive(A ) Negative Swab Nasopharyngeal structure / Unknown 12/06/2024 3:38 PM EST Radu Stiles NP POINT OF CARE TEST ENTER/EDIT ORDERABLES Final Result * US Head Neck Soft Tissue (12/04/2024 3:32 PM EST) Anatomical Region Laterality Modality Head and Neck Ultrasound 12/04/2024 5:42 PM EST Impressions 12/04/2024 5:45 PM EST Subcentimeter nodules as above -------- FINAL REPORT -------- Dictated By: Francisco Javier Lockhart Dictated Date: 12/04/2024 17:42 ET Assigned Physician: Francisco Javier Lockhart Reviewed and Electronically Signed By: Francisco Javier Lockhart Signed Date: 12/04/2024 17:45 ET Workstation ID: [id number] Transcribed By: Self Edit Transcribed Date: 12/04/2024 17:42 ET Narrative 12/04/2024 5:45 PM EST Exam: Thyroid ultrasound. HISTORY: thyroid nodule COMPARISON: None Technique: Grayscale and Doppler images of the thyroid gland were obtained. FINDINGS: The thyroid gland is normal in size. The right lobe measures 4.7 x 1.3 x 1.6 cm. The left lobe measures 4.7 x 1.4 x 1.5 cm. The thyroid isthmus is normal in size and measures 0.3 cm. The thyroid parenchyma is heterogenous Right Lobe: Upper pole--hypoechoic solid nodule measures 0.5 x 0.9 x 0.4 cm. Midpole--solid and cystic hypoechoic nodule measuring 0.6 x 0.4 x 0.7 cm. ??Increased vascularity. Left Lobe: Midpole--0.6 x 0.2 x 0.4 cm hypoechoic solid heterogeneous nodule Procedure Note Francisco Javier Lockhart MD - 12/04/2024 Exam: Thyroid ultrasound. HISTORY: thyroid nodule COMPARISON: None Technique: Grayscale and Doppler images of the thyroid gland wereobtained. FINDINGS: The thyroid gland is normal in size. The right lobe measures 4.7 x 1.3 x1.6 cm. The left lobe measures 4.7 x 1.4 x 1.5 cm. The thyroid isthmus isnormal in size and measures 0.3 cm. The thyroid parenchyma isheterogenous Right Lobe: Upper pole--hypoechoic solid nodule measures 0.5 x 0.9 x 0.4 cm. Midpole--solid and cystic hypoechoic nodule measuring 0.6 x 0.4 x 0.7 cm.Increased vascularity. Left Lobe: Midpole--0.6 x 0.2 x 0.4 cm hypoechoic solid heterogeneous nodule IMPRESSION: Subcentimeter nodules as above -------- FINAL REPORT -------- Dictated By: Francisco Javier Lockhart Dictated Date: 12/04/2024 17:42 ET Assigned Physician: Francisco Javier Lockhart Reviewed and Electronically Signed By: rFancisco Javier Lockhart Signed Date: 12/04/2024 17:45 ET Workstation ID: [id number] Transcribed By: Self Edit Transcribed Date: 12/04/2024 17:42 ET us Eva Watson MD IMG US PROCEDURES Final Result * CT Chest wo Contrast (11/29/2024 3:04 PM EST) Anatomical Region Laterality Modality Body Computed Tomogra phy 11/29/2024 5:28 PM EST Impressions 11/29/2024 5:37 PM EST 1. ??Radiographic finding corresponds to calcified left pleural plaques. 2. Gallstones -------- FINAL REPORT -------- Dictated By: Francisco Javier Lockhart Dictated Date: 11/29/2024 17:28 ET Assigned Physician: Francisco Javier Lockhart Reviewed and Electronically Signed By: Francisco Javier Lockhart Signed Date: 11/29/2024 17:37 ET Workstation ID: [id number] Transcribed By: Self Edit Transcribed Date: 11/29/2024 17:28 ET Narrative 11/29/2024 5:[address] CHEST HISTORY: Abnormal xray - lung nodule, < 1 cm, mod-high risk. TECHNIQUE: Chest CT was performed utilizing contiguous noncontrasted axial images from the thoracic inlet to below the diaphragm. ??The images were reformatted in the coronal and sagittal planes. Radiation dosage is 12.99mGy COMPARISON: CT chest from 12/22/2020, chest radiograph from 11/26/2024 FINDINGS: Base of neck: Tiny hypodensity within the right thyroid which likely represents small nodule. ??No lymphadenopathy within the base the neck. Mediastinum: The heart is normal in size, no pericardial effusion. ??Multiple subcentimeter lymph nodes within the mediastinal stations. Lungs: Evaluation of the lung parenchyma demonstrates left-sided calcified pleural plaques which likely represent radiographic findings. ??Focal areas of lucency within the medial right middle lobe and right lower lobe which could represent areas of air trapping. The trachea and mainstem bronchi are patent. Upper Abdomen: Limited visualization of the extreme upper abdomen demonstrates gallstones. ??Small hiatal hernia. MSK: Soft tissues are normal. The osseous structures are intact. Procedure Note Francisco Javier Lockhart MD - 11/29/2024 CT CHEST HISTORY: Abnormal xray - lung nodule, < 1 cm, mod-high risk. TECHNIQUE: Chest CT was performed utilizing contiguous noncontrasted axialimages from the thoracic inlet to below the diaphragm. The images werereformatted in the coronal and sagittal planes. Radiation dosage is12.99mGy COMPARISON: CT chest from 12/22/2020, chest radiograph from 11/26/2024 FINDINGS: Base of neck: Tiny hypodensity within the right thyroid which likelyrepresents small nodule. No lymphadenopathy within the base the neck. Mediastinum: The heart is normal in size, no pericardial effusion.Multiple subcentimeter lymph nodes within the mediastinal stations. Lungs: Evaluation of the lung parenchyma demonstrates left-sided calcifiedpleural plaques which likely represent radiographic findings. Focal areasof lucency within the medial right middle lobe and right lower lobe whichcould represent areas of air trapping. The trachea and mainstem bronchi are patent. Upper Abdomen: Limited visualization of the extreme upper abdomendemonstrates gallstones. Small hiatal hernia. MSK: Soft tissues are normal. The osseous structures are intact. IMPRESSION: 1. Radiographic finding corresponds to calcified left pleural plaques. 2. Gallstones -------- FINAL REPORT -------- Dictated By: Francisco Javier Lockhart Dictated Date: 11/29/2024 17:28 ET Assigned Physician: Francisco Javier Lockhart Reviewed and Electronically Signed By: Francisco Javier Lockhart Signed Date: 11/29/2024 17:37 ET Workstation ID: [id number] Transcribed By: Self Edit Transcribed Date: 11/29/2024 17:28 ET us Ana Isaac MD IMG CT PROCEDURES Final Result * XR Chest 2 Views (11/26/2024 4:31 PM EST) Anatomical Region Laterality Modality Body Radiographic Jeanine ging 11/26/2024 4:44 PM EST Narrative 11/26/2024 4:47 PM EST Chest, 2 views. History dyspnea on exertion. There is no pneumothorax, pleural effusions or congestive heart failure. There is small nodular opacity in the left upper lobe. It could be related to the arm ribs. However possibility of pulmonary nodule should be considered. No other focal parenchymal lung abnormalities identified. There is stable mild cardiomegaly. There are degenerative changes in the thoracic spine. CONCLUSIONS: Possible pulmonary nodule in the left upper lobe. Chest CT is recommended for further assessment. -------- FINAL REPORT -------- Dictated By: Kaylynn Hewitt Dictated Date: 11/26/2024 16:44 ET Assigned Physician: Kaylynn Hewitt Reviewed and Electronically Signed By: Kaylynn Hewitt Signed Date: 11/26/2024 16:47 ET Workstation ID: [id number] Transcribed By: Self Edit Transcribed Date: 11/26/2024 16:44 ET Procedure Note Kaylynn Hewitt MD - 11/26/2024 Chest, 2 views. History dyspnea on exertion. There is no pneumothorax, pleural effusions or congestive heart failure.There is small nodular opacity in the left upper lobe. It could be relatedto the arm ribs. However possibility of pulmonary nodule should beconsidered. No other focal parenchymal lung abnormalities identified.There is stable mild cardiomegaly. There are degenerative changes in thethoracic spine. CONCLUSIONS: Possible pulmonary nodule in the left upper lobe. Chest CT isrecommended for further assessment. -------- FINAL REPORT -------- Dictated By: Kaylynn Hewitt Dictated Date: 11/26/2024 16:44 ET Assigned Physician: Kaylynn Hewitt Reviewed and Electronically Signed By: Kaylynn Hewitt Signed Date: 11/26/2024 16:47 ET Workstation ID: [id number] Transcribed By: Self Edit Transcribed Date: 11/26/2024 16:44 ET us Ana Isaac MD IMG XR PROCEDURES Final Result * SCREENING MAMMOGRAPHY BI 2-VIEW BREAST INC CAD (07/13/2024 10:17 AM EDT) Anatomical Region Laterality Modality Radiographic Jeanine ging 08/02/2023 3:24 PM EDT Narrative 07/16/2024 5:33 PM EDT This is a summary report. The complete report is available in the patient's medical record. If you cannot access the medical record, please contact the sending organization for a detailed fax or copy. Exam: Screening mammogram Findings: Digital bilateral full-field screening mammography is performed with tomosynthesis and interpreted with the aid of computer-aided detection. ??Comparison is made with 08/02/2023 and as far back as 07/13/2019. Breast parenchyma is heterogeneously dense, which may obscure small masses. ??No new suspicious mass, architectural distortion, or suspicious calcifications. Impression: No mammographic evidence of malignancy. BI-RADS 1 - negative Procedure Note Alis Mcdonald MD - 08/28/2024 This is a summary report. The complete report is available in thepatient's medical record. If you cannot access the medical record, pleasecontact the sending organization for a detailed fax or copy. Exam: Screening mammogram Findings: Digital bilateral full-field screening mammography is performedwith tomosynthesis and interpreted with the aid of computer-aideddetection. Comparison is made with 08/02/2023 and as far back as07/13/2019. Breast parenchyma is heterogeneously dense, which may obscure smallmasses. No new suspicious mass, architectural distortion, or suspiciouscalcifications. Impression: No mammographic evidence of malignancy. BI-RADS 1 - negative Result [facility] Parul Murillo MD IMG XR PROCEDURES Final Res ult * Annual BMP Blood Test (05/24/2024) [facility] Annual BMP Blood Test Abstracted Result [facility] Provider HEALTH MAINTENANCE Final Result * (ABNORMAL) Lipid panel (05/24/2024) [facility] LDL/HDL Ratio 3 0 - 4 Triglycerides 72 0 - 150 mg/dL Cholesterol 181 0 - 200 mg/dL HDL 65 >=40 mg/dL LDL Cholesterol 102(A) 0 - 100 mg/dL Blood Venous blood specimen / Unknown Result [facility] Historical Provider LAB BLOOD ORDERABLES Emily l Result * Bone Density Scan (Dexa Scan) (08/03/2023) Bone Density Scan Normal Anatomical Region Laterality Modality Other Historical Provider HEALTH MAINTENANCE Final Result * Hepatitis C Screening (09/26/2022) [facility] Hepatitis C Screening Abstracted [facility] Provider HEALTH MAINTENANCE Final Result * Colonoscopy (01/01/2021) Colonoscopy No interpretation with ,abstracted Anatomical Region Laterality Modality Other [facility] Provider HEALTH MAINTENANCE Final Result * Cervical Cancer Screening: HPV (12/15/2020) [facility]ologist [facility] Cervical Cancer Screening: HPV No interpretation with Negative, abstracted [facility] Provider HEALTH MAINTENANCE Final Result from Last 3 Months or Most Recently Relevant to Health Maintenance Insurance Care Teams Ski Topper Relationship Specialty Start Date End Date Eva Watson MD [address] [place] [id number] PCP - General Internal Medicine 06/13/22
--- OUTSIDE RECORDS SUMMARY | 2025-01-09 19:16 | XMS_ITS | Patient Health Record ---
[facility] Address [address] [place] [address] Care Team Providers Care Learning Strategist Name Role Phone Eva Chen Primary Care Provider Unava Gonzales Meier Unavailable [phone] Allergies Allergen (clinical drug ingredient) Drug/Non Drug Allergy documented on EMR Reaction Allergy Type Onset Date Status ibuprofen Advil can't take on blood thinner Drug Allergy Active Aleve can't take on blood thinner Drug Allergy Active sulfamethoxazole / trimethoprim Bactrim rash,itch Drug Allergy Active Biaxin swelling, hives Drug Allergy Active ciprofloxacin Cipro nausea Drug Allergy Act anshul Levaquin nausea Drug Allergy Active Motrin can't take on blood thinner Drug Allergy Active Adhesive rash Allergy Active aspirin Aspirin can't take on blood thinner Drug Allergy Active Iodinated contrast media (substance) Iodinated Diagnostic Agents severe itching Drug Allergy Active Latex Latex rash Allergy Active Penicillin rash ,hives Drug Allergy Acti ve Reason For Referral No Information Medications Medication SIG (Take, Route, Frequency, Duration) Notes Start Date End Date Status Sertraline HCl 200 MG as directed Orally Active Pantoprazole Sodium 20 MG 1 tablet twice a day Active Labetalol HCl 100 MG Orally twice a day Not-Taking Lisinopril 20 MG as directed Orally Twice a day 08/30/2016 Active Flonase 50 MCG/ACT 1 spray in each nostril Nasally twice a day for 30 day(s) Not-Taking Fluticasone Propionate 50 MCG/ACT SPRAY 2 SPRAYS INTO EACH NOSTRIL EVERY DAY Nasal for 30 nasal spary Active hydroCHLOROthiazide 25 MG 1 tablet Orall y Once a day for 30 day(s) Not-Taking Eliquis 5 MG Orally 2 x day Ac tive Work Note . . . patient is disabled from work with return on 12/07/22 in cast boot with no stairs and limited walking distance Not-Taking dilTIAZem HCl 120 MG as directed Orally 180mg Active Voltaren 1 % as directed Externally 02/02/2023 Not-Taking Chlorthalidone 25 MG 1 tablet in the morning with food Orally Once a day Active Work Note-Appointment . . . patient may return to normal work with avoidance of excessive walking until further notice 02/02/2023 Not-Taking Calcium Citrate + D Active Pneumatic Compression Boot 30mm Hg as directed over swollen feet and legs as directed for . Active Voltaren 1 % as directed Externally Active Simvastatin 20 MG as directed Orally Once a day 08/30/2016 Active Trifluridine 1 % INSTILL 1 DROP INTO THE RIGHT EYE 8 TIMES A DAY Ophthalmic for 30 Not-Taking Spironolactone 25 MG 0.5 tablet Orally Once a day Active Nitrofurantoin Macrocrystal 100 MG TAKE 1 CAPSULE BY MOUTH 4 TIMES DAILY FOR 7 DAYS Oral for 7 Not-Taking Immunizations Vaccine Route Administration Date Status Comme nts COVID-19 Pfizer BioNTech Vaccine Unknown 12/10/2021 Administered 1st 01/27/21 2nd 02/18/21 Social History Tobacco Use: Social History Observation Description Date Details (start date - stop date) Former Smoker NA - NA Tobacco Use/Smoking Question Answer Notes Are you a: former smoker Alcohol Screen Question Answer Notes Did you have a drink containing alcohol in the p ast year? No Points 0 Interpretation Negative Tobacco use other than smoking: Question Answer Notes Are you an other tobacco user? No Problems Problem Type SNOMED Code ICD Code Onset Dates Problem Status W/U Status Risk Notes Problem Acquired hallux valgus (20729694) Hallux valgus (acquired), left foot (M20.12) Active confirmed Problem Localized, primary osteoarthritis of the ankle and/or foot (058765053) Primary osteoarthrit is, left ankle and foot (M19.072) Active confirmed Problem Acquired hallux valgus (43777314) Hallux valgus (acquired), right foot (M20.11) Active confirmed Plan Of Treatment Pending Test Test Name Order Date X ray : Foot, right 2V 08/30/2016 X ray : Foot, left 3V 09/19/2023 X ray : Foot, right 3V 05/26/2022 X ray : Foot, right 3V 09/19/2023 66594-Yhgy Destruction, 1-14 08/30/2016 60966-Wggz Destruction, 1-05/28/2013 71101-Eqrm Destruction, -07/04/2013 39411, J0702- INJECT or DRAIN, JOINT/BUR SA 09/19/2023, W2336-LPCLZ/INJECT, JOINT/BURSA 1 11/19/2022, X3393-XUBLF/INJECT, JOINT/BURSA 0 05/26/2022, A8766-TUUPC/INJECT, JOINT/BURSA 0 07/06/2022 Insurance Providers Payer Name Payer Address Payer Phone Subscriber Number Group Number Insured Name Patient Relationship to Insured Coverage Start Date Coverage End Date [facility] [address] [place] [address] [id number] Kristine Freitas Self - patient is the insured Medical (General) History Medical History History ICD Code hypertension cholesterol chicken pox back, hip, knee pain anxiety Anemia covid-19 Kidney disease A-Fib Broken bones Surgical History Surgery Date(Month/Year) angioplasty 1985 aortic valve replacement 1974 unspecified surgery 1967 bunionectomy 1993 section 1994, 1999 patent ductuc arteriosis 1966 Hospitalization History Reason Date(Month/Year) atrial fibrilation 08/2018 atrial fibrilation 11/2017
--- OUTSIDE RECORDS SUMMARY | 2025-01-09 19:16 | XMS_ITS ---
Author [facility] Address [address] [facility] [place] [address] Care Team Providers Care Transition Specialist Name Role Phone Eva Chen Primary Care Provider Unava Gonzales Meier Unavailable [phone] Allergies Allergen (clinical drug ingredient) Drug/Non Drug [...] Penicillin rash ,hives Drug Allergy Acti ve Medications Medication SIG (Take, Route, Frequency, Duration) Notes Start Date End Date Status Voltaren 1 % as directed Externally 02/02/2023 Not-Taking Work Note-Appointment . . . patient may return to normal work with avoidance of excessive walking until further notice 02/02/2023 Not-Taking Pneumatic Compression Boot 30mm Hg as directed over swollen feet and legs as directed for . Active Sertraline HCl 200 MG as directed Orally Active Voltaren 1 % as directed Externally Active Pantoprazole Sodium 20 MG 1 tablet twice a day Active Lisinopril 20 MG as directed Orally Twice a day 08/30/2016 Active Fluticasone Propionate 50 MCG/ACT SPRAY 2 SPRAYS INTO EACH NOSTRIL EVERY DAY Nasal for 30 nasal spary Active Simvastatin 20 MG as directed Orally Once a day 08/30/2016 Active Spironolactone 25 MG 0.5 tablet Orally Once a day Active Eliquis 5 MG Orally 2 x day Ac tive dilTIAZem HCl 120 MG as directed Orally 180mg Active Chlorthalidone 25 MG 1 tablet in the morning with food Orally Once a day Active Calcium Citrate + D Active Trifluridine 1 % INSTILL 1 DROP INTO THE RIGHT EYE 8 TIMES A DAY Ophthalmic for 30 Not-Taking Labetalol HCl 100 MG Orally twice a day Not-Taking Flonase 50 MCG/ACT 1 spray in each nostril Nasally twice a day for 30 day(s) Not-Taking hydroCHLOROthiazide 25 MG 1 tablet Orall y Once a day for 30 day(s) Not-Taking Work Note . . . patient is disabled from work with return on 12/07/22 in cast boot with no stairs and limited walking distance Not-Taking Nitrofurantoin Macrocrystal 100 MG TAKE 1 CAPSULE BY MOUTH 4 TIMES DAILY FOR 7 DAYS Oral for 7 Not-Taking Social History Tobacco Use: Social History Observation [...] Are you an other tobacco user? No Vital Signs Height 5ft 5in in 09/19/2023 Weight 208 lbs 09/19/2023 BMI 34.61 kg/m2 09/19/2023 Procedures Procedure Date Ordered Date Performed Result Body Sit e , J0702- INJECT or DRAI N, JOINT/BURSA 09/19/2023 N/A , Y3261-IIINZ/INJECT, JOINT/BURSA 09/19/2023 N/A Encounters Encounter Location Date Provider Diagnosis [facility] [address] [address] 09/19/2023 Gonzales Saucedo Pain in left foot M79.672 ; Pain in right foot M79.671 ; Metatarsalgia, right foot M77.41 ; Metatarsalgia, left foot M77.42 ; Primary osteoarthritis, left ankle and foot M19.072 ; Hallux valgus (acquired), left foot M20.12 and Hallux valgus (acquired), right foot M20.11 Assessments Encounter Date Diagnosis (ICD Code) Assessment Notes Treatment Notes Treatment Clinical Notes Section Notes 09/19/2023 Pain in left foot (ICD-10 - M79.672) 09/19/2023 Pain in right foot (ICD-10 - M79.671) 09/19/2023 Metatarsalgia, right foot (ICD-10 - M77.41) 09/19/2023 Metatarsalgia, left foot (ICD-10 - M77.42) 09/19/2023 Primary osteoarthritis, left ankle and foot (ICD-10 - M19.072) 09/19/2023 Hallux valgus (acquired), left foot (ICD-10 - M20.12) 09/19/2023 Hallux valgus (acquired), right foot (ICD-10 - M20.11) Plan Of Treatment Medication Medication Name Sig Start Date Stop Date Notes Voltaren 1 % as directed Externally Pending Test Test Name Order Date X ray : Foot, left 3V 09/19/2023 X ray : Foot, right 3V 09/19/2023, J0702- INJECT or DRAIN, JOINT/BUR SA 09/19/2023, N1040-SCPZK/INJECT, JOINT/BURSA 1 11/19/2022 Next Appt Details Follow Up: 4 Weeks, [...] 10, RIGHT2-4th mtpj's Med: Joint,Bursa (Sinus Tarsi,AJ) 11480, J0702 Injection #1 Med/Ankle joint bursa/capsule 1cc [...] Progress Notes * Kristine BURGESS LDOB:[birth year] (58 yo F)Acc No.[id number]:09/19/2023 Progress Note Patient:?Kristine Burgess L Provider:?Gonzales Saucedo DPM :1965???Age:58 Y???Sex:Female D ate:09/19/2023 Address:[address] [place] [address] [facility] Pcp:Eva Chen Subjective: * Chief Complaints: * [...] sleeping?denies.?Brain disorder?denies.?Numbness?denies.?Balance trouble?denies.?Confusion?denies.?Fainting/blackouts?denies.?Tingling?denies.?Tr emors?denies.? * Medical History:? * Surgical History:?angioplast y 1985aortic valve replacement 1974unspecified surgery 1967bunionectomy 1994cesarean section 1994, 1999patent ductuc arteriosis 1966 * Hospitalization/Major Diagno stic Procedure:?atrial fibrilation 11/2017atrial fibrilation 08/2018 * Family History:?Mother: dece ased, foot problems, diagnosed with Family history of arthritis, Unspecified cerebral artery occlusion with cerebral infarction.?Father: , heart attack, diagnosed with Unspecified essential hypertension, Unspecified heart disease.?Maternal Grand Mother: cancer, diagnosed with Other malignant neoplasm of unspecified site.?Siblings: Brother, diagnosed with Diabetic - NIDDM, Other malignant neoplasm of unspecified site.?Spouse: alive.? * Social History:?Tobacco Use:?Tobacco Use/Smoking?Are you a:?former smoker ?Tobacco use other than smoking?Are you an other tobacco user??No ???Drugs/Alcohol:?Drugs?Have you used drugs other than those for medical reasons in the past 12 months??No ?Alcohol Screen?Did you have a drink containing alcohol in the past year??No ?Points?0 ?Interpretation?Negative ???Miscellaneous:?no Caffeine, 2 cups per day. ?Children: yes, two. ?Exercise: yes, walking, exercise class, swimming. ?Marital status: . 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 * Medications:?TakingCalcium C itrate + D Chlorthalidone 25 MG Tablet 1 tablet in the morning with food Orally Once a daydilTIAZem HCl 120 MG Tablet as directed Orally , Notes: 180mgEliquis 5 MG Tablet Orally 2 x dayFluticasone Propionate 50 MCG/ACT Suspension SPRAY 2 SPRAYS INTO EACH NOSTRIL EVERY DAY Nasal , Notes: nasal sparyLisinopril 20 MG Tablet as directed Orally Twice a dayPantoprazole Sodium 20 MG Tablet Delayed Release 1 tablet twice a daySpironolactone 25 MG Tablet 0.5 tablet Orally Once a daySimvastatin 20 MG Tablet as directed Orally Once a daySertraline HCl 200 MG Capsule as directed Orally Pneumatic Compression Boot 30mm Hg wear as directed over swollen feet and legs as directedVoltaren 1 % Gel as directed Externally Taking Calcium Citrate + D Taking Chlorthalidone 25 MG Tablet 1 tablet in the morning with food Orally Once a dayTaking dilTIAZem HCl 120 MG Tablet as directed Orally , Notes: 180mgTaking Eliquis 5 MG Tablet Orally 2 x dayTaking Fluticasone Propionate 50 MCG/ACT Suspension SPRAY 2 SPRAYS INTO EACH NOSTRIL EVERY DAY Nasal , Notes: nasal sparyTaking Lisinopril 20 MG Tablet as directed Orally Twice a dayTaking Pantoprazole Sodium 20 MG Tablet Delayed Release 1 tablet twice a dayTaking Spironolactone 25 MG Tablet 0.5 tablet Orally Once a dayTaking Simvastatin 20 MG Tablet as directed Orally Once a dayTaking Sertraline HCl 200 MG Capsule as directed Orally Taking Pneumatic Compression Boot 30mm Hg wear as directed over swollen feet and legs as directedTaking Voltaren 1 % Gel as directed Externally Not-Taking/PRNWork Note-Appointment . . . . patient may return to normal work with avoidance of excessive walking until further noticeVoltaren 1 % Gel as directed Externally Work Note . . . . patient is disabled from work with return on 12/07/22 in cast boot with no stairs and limited walking distancehydroCHLOROthiazide 25 MG Tablet 1 tablet Orally Once a dayFlonase 50 MCG/ACT Suspension 1 spray in each nostril Nasally twice a dayLabetalol HCl 100 MG Tablet Orally twice a dayNitrofurantoin Macrocrystal 100 MG Capsule TAKE 1 CAPSULE BY MOUTH 4 TIMES DAILY FOR 7 DAYS Oral Trifluridine 1 % Solution INSTILL 1 DROP INTO THE RIGHT EYE 8 TIMES A DAY Ophthalmic Medication List reviewed and reconciled with the patientNot-Taking/PRN Work Note-Appointment . . . . patient may return to normal work with avoidance of excessive walking until further noticeNot-Taking/PRN Voltaren 1 % Gel as directed Externally Not-Taking/PRN Work Note . . . . patient is disabled from work with return on 12/07/22 in cast boot with no stairs and limited walking distanceNot-Taking/PRN hydroCHLOROthiazide 25 MG Tablet 1 tablet Orally Once a dayNot-Taking/PRN Flonase 50 MCG/ACT Suspension 1 spray in each nostril Nasally twice a dayNot-Taking/PRN Labetalol HCl 100 MG Tablet Orally twice a dayNot-Taking/PRN Nitrofurantoin Macrocrystal 100 MG Capsule TAKE 1 CAPSULE BY MOUTH 4 TIMES DAILY FOR 7 DAYS Oral Not-Taking/PRN Trifluridine 1 % Solution INSTILL 1 DROP INTO THE RIGHT EYE 8 TIMES A DAY Ophthalmic Medication List reviewed and reconciled with the patient * Allergies:?Cipro: nauseaLeva azar: nauseaBiaxin: swelling, hivesBactrim: rash,itchAspirin: can't take on blood thinnerAdvil: can't take on blood thinnerAleve: can't take on blood thinnerMotrin: can't take on blood thinnerIodinated Diagnostic Agents: severe itchingAdhesive: rashLatex: rashPenicillin: rash ,hivesyes[Allergies Verified] Objective: * Vitals:?Ht: 5ft 5in, Wt:208, BMI:34.61, Shoe size: 8.5, Ht-cm: 165.1 cm, Wt-k.35 kg. * Examination: ???General Examination: ?GENERAL APPEARANCE:?pleasant, alert, well nourished, well developed, well hydrated, with good attention to hygene/body habitus, and in no acute distress.?ORIENTED:?person,place, and time.?Neurological: ?SENSORY:?Neurological exam demonstrates pop dorsum left calcaneo-cuboid joint and pop dorsum right 2-4th mt's and mtpj's.?TINEL'S COMPRESSION:?Negative tarsal tunnel, vivien pedis, and medial calcaneal nerves B/L.?BABINSKI REFLEX:?absent.?Neuroma Pain: ?PALPATION:?No interspace pain noted on palpation.?Vascular: ?DP PULSES:?2/4, B/L.?PT PULSES:? 11/16, B/L.?CAPILLARY FILL TIME:?3 secs. per digit, B/L.?SKIN TEMPERTURE GRADIENT OF THE LOWER EXTERMITIES:?warm to cool, proximal to distal, B/L.?HAIR GROWTH/TEXTURE/ELASTICITY/TURGOR:?normal, B/L.?PIGMENTATION:?normal, B/L.?EDEMA:? /4, Right ff.?TELANGECTASIA:?absent.?VARICOSITIES:?absent.?Dermatologic: ?SKIN FINDINGS:?Skin exam reveals normal [...] palpation, RIGHT.? Assessment: * Assessment: 1.?Pain in right foot - M79. 671?2.?Pain in left foot - M79.672 (Primary)?3.?Metatarsalgia, right foot - M77.41?4.?Metatarsalgia, left foot - M77.42?5.?Primary osteoarthritis, left ankle and foot - M19.072?6.?Hallux valgus (acquired), left foot - M20.12?7.?Hallux valgus (acquired), right foot - M20.11? Plan: * Treatment: 2.?Pain in right foot?Imaging: X ray : Foot, right 3V 3.?Metatarsalgia, right foot ?Procedure: -DRAIN/INJECT, JOINT/BURSA 4.?Metatarsalgia, left foot? Start Voltaren Gel, 1 %, as directed, Externally.?? 5.?Primary osteoarthritis, l eft ankle and foot?Procedure: - INJECT or DRAIN, JOINT/BURSA * Procedures:?Injection:?Sm. Joint, Bursa? Injection - sm/med [...] out of 10, RIGHT2-4th mtpj's.?Med: Joint,Bursa (Sinus Tarsi,AJ)?31516, J0702 Injection #1 Med/Ankle joint bursa/capsule 1cc [...] be necessary, LEFT CC joint.? * Procedure Codes:?30859 X-RAY EXAM OF LEFT FOOT 3V, Modifiers: 26 , [id number] X-RAY EXAM OF RIGHT FOOT 3V, Modifiers: 26 , HEM2919 INJ BETAMETHSN ACTAT&SOD PHOSPH-3MG, Units: 2.00 51339 DRAIN/INJECT, JOINT/BURSA, Modifiers: XS 61967 DRAIN/INJECT, JOINT/BURSA, Modifiers: XS * Preventive Medicine:? ??Counseling:?Discussion:?-14: Office or other outpatient visit for the evaluation and management of an established patient, which required a medically appropriate history and/or examination and MODERATE level of DECISION MAKING for: 1 OR MORE CHRONIC PROBLEM(S) THATS WORSENING, 2 STABLE CHRONIC PROBLEMS, A NEWLY DIAGNOSED PROBLEM WITH UNCERTAIN PROGNOSIS, AN ACUTE COMPLICATED INJURY WITH MULTIPLE TREATMENT OPTIONS, OR AN ACUTE PROBLEM WITH ACCOMPANYING SYSTEMIC SYMPTOMS, THAT POSE(S) A MODERATE RISK OF MORBIDITY. THIS CONDITION MAY ALSO INCLUDE RX DRUG MANAGEMENT, OR A DECISON FOR MINOR SURGERY. The visit on the day of the encounter encompassed interpreting the data and educating the patient as to the nature of their condition, treatment options available according to their individual PMH, meds, allergies, and overall health/living conditions, as well as any potential risks or complications that may occur from a failure to adhere to, and participate in, the recommended course of therapy. The discussion included a complete verbal, and/or written explanation of the examination results, any x-rays taken, the proposed diagnosis, and outline of the treatment plan. A schedule for future care needs was also explained. The patient verbalized an understanding of the instructions at this time and agreed to be an active participant in their treatment. If the patient should think of any questions or concerns after the visit, I have encouraged the patient to call the office--discussed potential need for custom orthoses and also potential for haav sx right --pt not compiant with either and she will f/u with ortho next week as to potential nerve damage left knee form knee brace.? * Follow Up:?4 Weeks * Images: * Sign off status: Completed true * Provider:?Gonzales Saucedo DPM Date:? 023 Generated for Main lara/Catherine/Cuco on:?01/09/2025 07:16 PM EST History and Physical Notes * [...] PULSES (B): 2/4, B/L PT PULSES (B): /4, B/L CAPILLARY FILL TIME: 3 secs. per digit, B/L TEMPERTURE GRADIENT (C): warm to cool, p roximal to distal, B/L TROPHIC CONDITION-TEXTURE/ELASTICITY/TURGOR/HAIR GROWTH (B): normal, B/L EDEMA (C): 1/, Right ff TELANGECTASIA: absent VARICOSITIES: absent PIGMENTATION: normal, B/L
--- OUTSIDE RECORDS SUMMARY | 2025-01-09 19:16 | XMS_ITS | Patient Health Record ---
Author Organization [facility] Address [address] [place] [address] Care Team Providers Care Roll Over Press Operator Name Role Phone KARINA BRODERICK Unavailable [phone] ALLERGIES Allergen (clinical drug ingredient) Drug/Non Drug Allergy documented on EMR Reaction Allergy Type Onset Date Status sulfamethoxazole / trimethoprim Bactrim itchiness Drug Allergy Active Biaxin hives, swelling Drug Allergy A ctive ciprofloxacin Cipro nausea Drug Allergy Act anshul Latex Latex rash Allergy Active Penicillin hives Drug Allergy Active REASON FOR REFERRAL No Information MEDICATIONS Medication SIG (Take, Route, Frequency, Duration) Notes Start Date End Date Status Eliquis 5 MG as directed Orally t wice a day Active Lisinopril 30 MG as directed, 10mg in the morning, 20mg at night Orally twice a day Active Simvastatin 40 MG 1 tablet in the even ing Orally Once a day Active hydroCHLOROthiazide 25 MG 1 tablet in th e morning Orally Once a day Active Sertraline HCl 150 MG 1 tablet Orally Once a day Active Pulmicort Active SOCIAL HISTORY Tobacco Use: Social History Observation Description Date Details (start date - stop date) Current Smoker NA - NA Sex Assigned At : Social History Observation Description Sex Assigned At Unknown Tobacco Use/Smoking Question Answer Notes Are you a current smoker How often do you smoke cigarettes? every day Section Notes: 1 pack a day, 12yrs PROBLEMS Problem Type ICD Code Onset Dates Problem Status W/U Status Risk SNOMED Code Notes Problem Other obesity due to excess calories (E66.09) Active confirmed 678916152 Problem Essential (primary) hypertension (I10) Active confirmed 83269872 Problem Coarctation of aorta (Q25.1) Active confirmed 8396913 Problem Pure hypercholesterolemia (E78.00) Active confirmed 226172402 Problem Body mass index [BMI ] 37.0-37.9, adult (Z68.37) Active confirmed 890813374 Problem PAF (paroxysmal atri al fibrillation) (I48.0) Active confirmed [id number] PLAN OF TREATMENT No Information Insurance Providers Payer Name Payer Address Payer Phone Subscriber Number Group Number Insured Name Patient Relationship to Insured Coverage Start Date Coverage End Date [facility] [address] [place] [address] [id number] 1 [id number] MILAN CLARK Self - patient is the insured MEDICAL (GENERAL) HISTORY Medical History History ICD Code high blood pressure high cholesterol hemorrhoids anemia kidney disease anxiety depression seasonal allergies Surgical History Surgery Date(Month/Year) patent ductus arterialosos 09/1967 coarctation of aorta 08/1974 angioplasty 12/1985
--- OUTSIDE RECORDS SUMMARY | 2025-01-09 19:16 | XMS_ITS | Encounter Summary ---
Author Organization [facility] Address [address] [place] [address] Care Team Providers Care Joint Special Operations Name Role Phone Eva Watson MD Primary Care Prov ider Encounter Details Date Type Department Care Team ([facility] Contact Info) Description 12/10/2024 [facility] [place] [address] [place] [phone] Ana Isaac MD [address] [place] [address] Social History Tobacco Use Types Packs/Day Years Used Date Smoking Tobacco: Former Cigarettes 1 16.1 0 04/23/1982 - 06/15/1998 Smokeless Tobacco: Never Alcohol Use Standard Drinks/Week Comments Not Currently [...] for your loved ones. For example, child development professor or elderly care for an older adult? [...] on file Sexual Orientation Not on file documented as of this encounter Progress Notes * Ana Isaac MD - 12/10/2024 6:45 PM EST Spoke with her and told her to call [facility] for changes. CT scan results also d/w her * Jose Monge - 12/10/2024 12:12 PM EST Patient called will like to know if provide can adjust the staring settings as, before provider made adjustment when machine used to start it used to Gradually start slowly and then after 15 minutes it will adjust to the settings. Now since provider change her settings it turns on automatically goes straight to settings 10. Please advice patient is seeking [place] to call documented in this encounter Plan of Treatment Upcoming Encounters Date Type Department Care Team (Late st Contact Info) Description 05/30/2025 3:00 PM EDT Office Visit Adult Medicine East - [address] [phone] Eva Watson MD [address] [place] [address] 07/01/2025 10:30 AM EDT Office Visit Pulmonolgy - [place] [address] [facility] [address] [place] [phone] Ana Isaac MD [address] [address] 07/21/2025 4:00 PM EDT Appointment Radiology Department - [address] [phone] documented as of this encounter Visit Diagnoses Not on filedocumented in this encounter Additional Health Concerns Infection Onset Date Last Indicated Resolved Time COVID-19 12/06/2024 12/06/2024 01/05/2025 7:04 PM EST Assessment Noted Time PHQ-9 Depression Total Score: 0 12/01/19 25 6:33 PM EST documented as of this encounter Care Teams Joint Special Operations Relationship Specialty Start Date End Date Eva Watson MD [address] [place] [address] PCP - General Internal Medicine 06/13/22 documented as of this encounter
--- OUTSIDE RECORDS SUMMARY | 2025-01-09 19:16 | XMS_ITS | Encounter Summary ---
Author Organization [facility] Address [address] [place] [address] Care Team Providers Care Optical Engineer Name Role Phone Eva Watson MD Primary Care Prov ider Reason for Visit * Reason Comments Sinusitis Having thick yellow and orange secretions- ongoing issue Encounter Details Date Type Department Care Team (Late st Contact Info) Description 12/26/2024 3:00 PM EST Office Visit Adult Medicine [address] [phone] Trudy Baez PA [address] [place], [place] Acute recurrent maxillary sinusitis (Primary Dx) Social History Tobacco Use Types Packs/Day Years [...] Record ed Within the last 3 months, ho w many times did you visit the emergency [...] care for your loved ones. For example, rn maternal child or elderly care for an older adult? [...] on file documented as of this encounter Last Filed Vital Signs Vital Sign Reading Time Taken Comments Blood Pressure 133/53 12/26/2024 3:10 PM EST Pulse 68 12/26/2024 3:10 PM EST Temperature 36.7 ??C (98 ??F) 12/26/2024 3:10 PM EST Respiratory Rate 15 12/26/2024 3:10 PM EST Oxygen Saturation - - Inhaled Oxygen Concentration - - Weight 91.3 kg (201 lb 3.2 oz) 12/26/2024 3:10 P M EST Height 165.1 cm (5' 5 ) 12/26/2024 3:10 PM EST Body Mass Index 33.48 12/26/2024 3:10 PM EST documented in this encounter Ordered Prescriptions Prescription Sig Dispense Quantity Refills Last Filled Start Date End Date azithromycin (ZITHROMAX) 250 mg tablet Take 2 tabs on day one and then 1 tab for the next 4 days 6 tablet 12/26/2024 documented in this encounter Progress Notes * YUKI Villanueva - 12/26/2024 3:00 PM EST CHIEF COMPLAINT: Sinusitis (Having thick yellow and orange secretions- ongoing issue) IDENTIFIER: Josué Freitas is a 59 y.o. old female. HPI: Patient is a 59-year-old female who presents to the office today complaining of persistent sinusitis symptoms. She was seen at an external urgent care in October 2024 and tested negative for COVID-19 infection. She was given a Z-Jimenez which helped initially but did not get rid of the sinus infection. She is experiencing yellow discharge, frontal and maxillary sinus tenderness, teeth pain, earache.No fever, sweats, chills. She did see our urgent care on 12/06/2024, she tested positive for COVID-19 infection. Patient reports that she went home and tested herself for a few days thereafter and it was negative which was odd. We did discuss her allergies, most of them are side effects (penicillin,ciprofloxacin, clindamycin, doxycycline, Bactrim). Penicillin allergy is from childhood. ROS: GENERAL: No malaise, significant weight loss or fever HEENT: See HPI NECK: No lumps, goiter, pain or significant neck swelling RESPIRATORY: No cough, wheezing or shortness of breath CARDIOVASCULAR: No chest pain, leg swelling or palpitations NEURO: No persistent headache PAST MEDICAL HISTORY: Patient Active Problem List Diagnosis Date Noted Breast complaint 10/18/2024 Obesity (BMI 30.0-34.9) 11/27/2023 Severe obesity with body mass index (BMI) of 35.0 to 39.9 with comorbidity ([facility]) 08/12/2022 Stage 3a chronic kidney disease ([facility]) 01/26/2021 Obstructive sleep apnea 11/15/2020 History of 2019 novel coronavirus disease (COVID-19) 06/04/2020 Acute gastric ulcer without hemorrhage or perforation 09/12/2019 Adjustment disorder with mixed anxiety and depressed mood 01/29/2019 Anxiety 09/20/2018 Cyst of right breast 08/17/2018 Lone atrial fibrillation ([facility]) 12/28/2017 CKD (chronic kidney disease), stage III ([facility]) 12/28/2017 HSV (herpes simplex virus) infection 08/11/2016 Cervical spondylosis with radiculopathy 07/26/2016 Mild anemia 05/28/2015 Hyperlipidemia with target LDL less than 130 05/14/2013 Allergic rhinitis 11/15/2007 Essential hypertension, benign 09/29/2005 Coarctation of aorta (preductal) (postductal) 09/29/2005 Past Surgical History: Procedure Laterality Date ANGIOPLASTY 1984 PROCEDURE: HISTORICAL ANGIOPLASTY BREAST BIOPSY Left 2020 PROCEDURE: BX BREAST; PERC NEEDLE CORE W/IMAG GUID BUNIONECTOMY 1993 PROCEDURE: [facility] CORRJ HLX VLGS BNCTY SESMDC W/DOUBLE OSTEOTOMY; COMMENT: right foot CARDIAC CATHETERIZATION 2003 PROCEDURE: HISTORICAL CARDIAC CATH SECTION PROCEDURE: [facility] DELIVERY ONLY; COMMENT: x2 OTHER SURGICAL HISTORY 1966 PROCEDURE: [facility] REPAIR PATENT DUCTUS ARTERIOSUS LIGATION OTHER SURGICAL HISTORY 1973 PROCEDURE: HISTORY OTHER; COMMENT: repair of coarctation of aorta OTHER SURGICAL HISTORY PROCEDURE: ---- OTHER ----; COMMENT: nava eye, Glaucoma SOCIAL HISTORY: Social History Tobacco Use Smoking status: Former Current packs/day: 0.00 Average packs/day: 1 pack/day for 16.1 years (16.1 ttl pk-yrs) Types: Cigarettes Start date: 04/23/1982 Quit date: 06/15/1998 Years since quittin.5 Smokeless tobacco: Never Substance Use Topics Alcohol use: Not Currently FAMILY HISTORY: Family History Problem Relation Name Age of Onset Stroke Mother Coronary artery disease Father 45.00 Hypertension Father Lymphoma Brother hodgkins Other (Other: cancer other) Maternal Grandmother ? Other (Other: Cardiac abnormalities) Daughter PDA Other (Other: cardiac anomalies) Son NARROWED AORTA + PDA Breast cancer Aunt m 40s everywheres - breast, LNs, liver, not sure of primary. MGM as well Other (Other: cancer other) Aunt maternal aunt, ?origin Hyperlipidemia Neg Hx Diabetes Neg Hx Autoimmune disease Neg Hx Colon cancer Neg Hx Mental illness Neg Hx Heart attack Neg Hx Heart failure Neg Hx Sleep apnea Neg Hx Thyroid disease Neg Hx Ovarian cancer Neg Hx Uterine cancer Neg Hx Pancreatic cancer Neg Hx MEDICATIONS DISCONTINUED/REORDERED: Medications Discontinued During This Encounter Medication Reason albuterol HFA (PROAIR HFA ; PROVENTIL HFA ; VENTOLIN HFA) 90 mcg/actuation inhaler Patient Discharge ACTIVE MEDICATIONS: Outpatient Medications Marked as Taking for the 12/26/24 encounter (Office Visit) with YUKI Villanueva Medication Sig Dispense Refill calcium citrate-vitamin D3 200 mg-6.25 mcg (250 unit) tablet Take by mouth 1 (one) time each day. cholecalciferol (VITAMIN D-3) 50 mcg (2,000 unit) tablet Take 1 tablet (2,000 Units total) by mouth1 (one) time each day. clindamycin (CLEOCIN) 150 mg capsule Take 4 capsules (600 mg total) by mouth. dilTIAZem XR (DILACOR XR) 180 mg 24 hr capsule Take 1 capsule (180 mg total) by mouth. ferrous sulfate 325 mg (65 mg iron) EC tablet Take 1 tablet (325 mg total) by mouth 2 (two) times aday. Do not crush, chew, or split. fluticasone propionate (FLONASE) 50 mcg/actuation nasal spray USE 2 SPRAYS INTO EACH NOSTRIL ONCE DAILY 16 mL 1 furosemide (LASIX) 20 mg tablet Take by mouth. lisinopriL (PRINIVIL,ZESTRIL) 2.5 mg tablet pantoprazole (PROTONIX) 20 mg EC tablet Take 1 tablet (20 mg total) by mouth 2 (two) times a day. sertraline (ZOLOFT) 100 mg tablet Take 2 tablets (200 mg total) by mouth 1 (one) time each day. 180each 3 simvastatin (ZOCOR) 20 mg tablet Take 1 tablet (20 mg total) by mouth. ALLERGIES: Allergies Allergen Reactions Penicillins Hives Adhesive Rash Ciprofloxacin Nausea And Vomiting Clarithromycin Swelling Doxycycline Itching Other Reaction(s): OTHER Gas bloating Ibuprofen On blood thinners, can not take Latex Other and Rash Sulfamethoxazole-Trimethoprim Other Reaction(s): Rash/Dermatitis PHYSICAL EXAM: Blood pressure 133/53, pulse 68, temperature 36.7 ??C (98 ??F), temperature source Temporal, resp. rate 15, height 1.651 m (65 ), weight 91.3 kg (201 lb 3.2 oz). Body mass index is 33.48 kg/m??. BMI is greater than 25.0 (above the normal range) - see Plan APPEARANCE: Alert and in no acute distress EYES: PERRLA, conjunctiva and sclera normal EARS: External ears normal. Canals clear. TMs normal NOSE/SINUS: Nares normal. Septum midline. Mucosa normal. Maxillary tenderness THROAT: No erythema or exudates NECK: Neck supple, no adenopathy HEART: RRR with normal S1 and S2, no murmurs, no gallops LUNG: Clear to auscultation EXTREMITIES: No edema NEURO: Awake, alert LABS: Component Latest Ref Rng & Units 05/24/2024 9:37 AM GLUCOSE, PLASMA 70 - 100 mg/dL 102 (H) Blood Urea Nitrogen 5 - 25 mg/dL 22 creatinine 0.5 - 1.1 mg/dL 1.25 (H) GLOMERULAR FILTRATION RATE >60 50 (L) NA (WB) 135 - 145 mEq/L 141 K 3.5 - 5.5 mmol/L 5.0 Chloride 96 - 110 mmol/L 107 CARBON DIOXIDE 21 - 32 mmol/L 29 ANION GAP 3 - 11 5 CALCIUM 8.5 - 10.5 mg/dL 9.6 Albumin 3.2 - 5.0 G/dL 3.6 ALT (SGPT) 10 - 60 U/L 18 PROTEIN, TOTAL 6.0 - 8.0 G/dL 6.4 Bilirubin, total 0.0 - 1.4 mg/dL 0.4 AST (SGOT) 10 - 42 U/L 17 Alk Phos 42 - 121 U/L 90 IMAGING: X-RAY EXAM OF SINUSES, COMPLETE Exam Date: 03/17/2022 Paranasal sinuses, 3 views of each. History rule out sinusitis. Frontal sinuses are underdeveloped. There is mild opacification of the maxillary sinuses bilaterally without air-fluid levels, more prominent on the left. There is no fractures, dislocations or destructive lesions. CONCLUSIONS: Mild opacification of the maxillary sinuses without air-fluid levels. Underdeveloped frontal sinuses. IMPRESSION/PLAN: 1. Acute recurrent maxillary sinusitis Medication and lab orders: No orders of the defined types were placed in this encounter. Other orders: None 1. Persistent sinusitis symptoms for over 1 month now. She is having sinus tenderness mostly in thefrontal and maxillary region. She has been evaluated at the urgent care twice now. She was given a Z-Jimenez in October 2024 which helped initially but did not get rid of the infection. We discussed herantibiotic allergy/side effects today. She would like to try a Z-Jimenez again. We could alternatively try doxycycline. Advised the patient to call me if any problems. Patient understands the plan. Patient is in agreement with the plan. Today's documentation was made using voice recognition software.This note may contain grammatical errors secondary to this software. Trudy Baez PA-C documented in this encounter Plan of Treatment Upcoming Encounters Date Type Department Care Team (Late st Contact Info) Description 05/30/2025 3:00 PM EDT Office Visit Adult Medicine [address] [phone] Eva Watson MD [address] [place] [address] 07/01/2025 10:30 AM EDT Office Visit Pulmonolgy - [address] [phone] Ana Isaac MD [address] [address] 07/21/2025 4:00 PM EDT Appointment Radiology Department - [address] [phone] documented as of this encounter Visit Diagnoses Diagnosis Acute recurrent maxillary sinusitis- Primary Encounter for screening mammogram for breast cancer documented in this encounter Discontinued Medications Medication Sig Discontinue Reason Start Date End Da te albuterol HFA (PROAIR HFA ; PROVENTIL HFA ; VENTOLIN HFA) 90 mcg/actuation inhaler Inhale 2 Puffs into the lungs every 4 hours as needed. Patient Discharge 12/26/2024 documented as of this encounter Additional Health Concerns Infection Onset Date Last Indicated Resolved Time COVID-19 12/06/2024 12/06/2024 01/05/2025 7:04 PM EST Assessment Noted Time PHQ-9 Depression Total Score: 0 12/01/19 25 6:33 PM EST documented as of this encounter Care Teams Optical Engineer Relationship Specialty Start Date End Date Eva Watson MD [address] [place] [id number] PCP - General Internal Medicine 06/13/22 documented as of this encounter
--- OUTSIDE RECORDS SUMMARY | 2025-01-09 19:16 | XMS_ITS | Clinical Summary ---
Author Organization [address] Address [address] [place] [phone] Phone Care Team Providers Care Asset Management Lead Name Role Phone Pennie Souza MD Primary Care Provider [phone] Allergies Active Allergy Reactions Criticality Noted Date Comments Sulfamethoxazole-Trimethoprim Rash Low 2019 Clarithromycin Rash Low 01/19/2020 Ciprofloxacin Hcl Rash Low 01/19/2020 Penicillins Rash Low 01/19/2020 Social History Tobacco Use Types Packs/Day Years Used Date Smoking Tobacco: Never Smokeless Tobacco: Never Alcohol Use Standard Drinks/Week Comments Never 0 (1 standard drink = 0.6 oz pur e alcohol) AUDIT-C Answer Date Recorded Frequency of Alcohol Consumption Never 01/19/2020 Average Number of Drinks Not on file 020 Frequency of Binge Drinking Not on file 06/2020 Comments Unknown Sex and Gender Information Value Date Recorded Sex Assigned at Not on file Legal Sex Female 2:50 PM EDT Gender Identity Female 01/19/2020 3:33 PM EDT Sexual Orientation Not on file Last Filed Vital Signs Vital Sign Reading Time Taken Comments Blood Pressure 164/70 01/19/2020 4:39 PM EDT Pulse 89 01/19/2020 4:39 PM EDT Temperature 36.2 ??C (97.1 ??F) 01/19/2020 2:53 PM ED T Respiratory Rate 16 01/19/2020 4:39 PM EDT Oxygen Saturation 98% 01/19/2020 4:39 PM EDT Inhaled Oxygen Concentration - - Weight 98.1 kg (216 lb 4.3 oz) 01/19/2020 3:12 P M EDT Height - - Body Mass Index - - Plan of Treatment Health Maintenance Due Date Last Done Comments HIV screening 1979 Hepatitis C screening 1984 Tetanus adult (Td q 10,TDAP once) 1986 Cervical cancer screening 1987 Breast cancer screening 2006 Lipid disorder screening 2006 Colon cancer screening, Colonoscopy 2011 Diabetes screening 2011 Shingles vaccine (Shingrix) (1 of 2 - Shingrix (RZV) 2 Dose Standard Series) 2016 Influenza vaccine 06/13/2024 Covid-19 vaccine series (1 - 2023- season) 2024 Pneumococcal Vaccine (50+ ye ars) (1 of 1 - PCV) 2031 RSV Discussion (1 - 1-dose 7 5+ series) 2041 Meningococcal Vaccine Aged Out No cody deborah eligible based on patient's age to complete this topic Insurance [email or web address] Care Teams Asset Management Lead Relationship Specialty Start Date End Date Pennie Souza MD PCP - General Internal Medicine 01/19/20
--- OUTSIDE RECORDS SUMMARY | 2025-01-09 19:16 | XMS_ITS | Encounter Summary ---
Author Organization [facility] Address [address] [place] [address] Phone Care Team Providers Care Mds Manager Name Role Phone Eva Reardon MD Primary Care Provider + Encounter Details Date Type Department Care Team (Late st Contact Info) Description 04/26/2022 Telephone [facility] [address] [place] [address] Sacha Malik MD Social History Tobacco Use Types Packs/Day Years Used Date Smoking Tobacco: Never Smokeless Tobacco: Never Alcohol Use Standard Drinks/Week Comments No 0 (1 standard drink = 0.6 oz pur e alcohol) Comments Unknown Sex and Gender Information Value Date Recorded Sex Assigned at Not on file Legal Sex Female 4:53 PM EST Gender Identity Not on file Sexual Orientation Not on file documented as of this encounter Miscellaneous Notes * Telephone Encounter - [facility] - 04/26/2022 4:41 PM EDT Pt called, she sent a patient message over my chart reg a weight loss program and she wanted to update you that her insurance doesn't cover it so it is no longer an option. documented in this encounter Plan of Treatment Not on file documented as of this encounter Visit Diagnoses Not on filedocumented in this encounter Care Teams Mds Manager Relationship Specialty Start Date End Date Eva Reardon MD PCP - General 08/11/22 documented as of this encounter
--- OUTSIDE RECORDS SUMMARY | 2025-01-09 19:16 | XMS_ITS ---
Author Organization [facility] Address [address] [place] [address] Care Team Providers Care Tribunal Member Name Role Phone Eva Chen Primary Care Provider Unava ilGonzales To [phone] REASON FOR VISIT cx 10/16 Encounters Encounter Location Date Provider Diagnosis [facility] [address] [place] [address] 10/12/2023 Gonzales Saucedo Plan Of Treatment No Information Progress Notes * LOUISRODOLFOKristine Edwards LDOB:[birth year] (58 yo F)Acc No.[id number]:10/12/2023 Patient:?Kristine Freitas :1965???Age:58 Y???Sex:Female Address:[address] [place] [address] * true * Date:? Generated for Printi ng/Faduongg/eTransmitting on:?01/09/2025 07:16 PM EST
--- OUTSIDE RECORDS SUMMARY | 2025-01-09 19:16 | XMS_ITS | Encounter Summary ---
Author Organization [facility] Address [address] [place] [address] Care Team Providers Care Director Of Direct Marketing Name Role Phone Eva Watson MD Primary Care Prov ider Reason for Visit * Reason Onset Date Comments DME request 12/13/2024 Encounter Details Date Type Department Care Team ([facility] st Contact Info) Description 12/13/2024 Telephone [facility] [address] [facility] [address] [place] [address] Amy Bishop MA DME request Social History Tobacco Use Types Packs/Day Years [...] care for your loved ones. For example, children's counselor or elderly care for an older adult? [...] as of this encounter Progress Notes * Amy Bishop MA - 12/13/2024 2:58 PM EST Revision for CPAP pressure change faxed to [facility]. Fax confirmation received. documented in this encounter Plan of Treatment Upcoming Encounters Date Type Department Care Team (Late st Contact Info) Description 05/30/2025 3:00 PM EDT Office Visit Adult Medicine [facility] [address] [phone] Eva Watson MD [address] [place] [address] 07/01/2025 10:30 AM EDT Office Visit Pulmonolgy - [place] [address] [phone] Ana Isaac MD [address] [address] 07/21/2025 4:00 PM EDT Appointment Radiology Department - [address] [phone] documented as of this encounter Visit Diagnoses Not on filedocumented in this encounter Additional Health Concerns Infection Onset Date Last Indicated Resolved Time COVID-19 12/06/2024 12/06/2024 01/05/2025 7:04 PM EST Assessment Noted Time PHQ-9 Depression Total Score: 0 12/01/19 25 6:33 PM EST documented as of this encounter Care Teams Director Of Direct Marketing Relationship Specialty Start Date End Date Eva Watson MD [address] [place] [address] PCP - General Internal Medicine 06/13/22 documented as of this encounter
== END 2025-01-09 16:04 | disposition home or self-care (01) ==
LOC: HO.LAB 16:03
PROVIDERS: PCP Internal Medicine; Visit Provider Internal Medicine Nephrology
DX: N18.31 Chronic kidney disease, stage 3a (principal); I15.0 Renovascular hypertension; D64.89 Other specified anemias
CPT/HCPCS: 36415; 80051; 81001; 81003; 82565; 82728; 83540; 84520; 85025

== ENCOUNTER 2025-01-14 15:38 | Outpatient (AMB) | payer OTHER, SELFPAY ==
--- NOTE | 2025-01-14 15:54 | HO.NEPHOV_ITS ---
Vital Signs 01/14/25 15:59 Height 5 ft 8 in Weight 202 lb 6 oz BMI 30.8 BP 150/62 H Blood Pressure Location Lt brachial Position Sitting Pulse 68 Pulse Source Pulse Oximeter Pulse Oximetry (%) 96 Oxygen Delivery Method Room Air Intake Visit Reasons: follow up-Conf Slurry Control Operator Helper Required: No Accompanied by: Daughter Allergies ciprofloxacin [From CIPRO] Allergy (Unknown, Verified 01/14/25 15:55) NAUSEA clarithromycin [From BIAXIN] Allergy (Unknown, Verified 01/14/25 15:55) SWELLING, HIVES Penicillins [PCN] Allergy (Unknown, Verified 01/14/25 15:55) HIVES sulfamethoxazole [From BACTRIM] Allergy (Unknown, Verified 01/14/25 15:55) HIVES trimethoprim [From BACTRIM] Allergy (Unknown, Verified 01/14/25 15:55) HIVES HPI Comments Details: Kristine was seen in follow-up of her chronic kidney disease and hypertension. Her SOB is better. Her ECHO was unchanged and had low Hb needing transfusion. She has seen Dr Carlton in [facility] and had endoscopy. She follows with Dr Isaac . She has history of coarctation of aorta. She has history of 2 episodes of COVID . She has not had any further recent atrial fibrillation. She does not take any nonsteroidal anti-inflammatories. Kristine has not tolerated beta paulino in the past & could not tolerate the spironolactone in the past due to hyperkalemia. Her stress test was negative in the past. She uses CPAP. She has no history of proteinuria. Doppler of her renal arteries did not show any critical renal artery stenosis in the past. Her renal functions continue to remain stable. [facility] Medical History Coarctation of aorta PDA (patent ductus arteriosus) Hypertension CKD (chronic kidney disease) stage 3, GFR 30-59 ml/min Surgical History S/P ablation of atrial fibrillation H/O section History of foot surgery H/O angioplasty Family History Brother Diabetes Father Hypertension Mother Hypertension Stroke Social History Alcohol intake: never Patient Tobacco Use Status: Never used Tobacco Review of Systems Const All systems reviewed & are unremarkable except as noted in HPI and below Physical Exam Vital Signs: Last Vital Signs Pulse 68 01/14/25 15:59 BP 150/62 H 01/14/25 15:59 Pulse Ox 96 01/14/25 15:59 Oxygen Delivery Method Room Air 01/14/25 15:59 BMI result Body Mass Index 30.8 Const General: comfortable and no acute distress Orientation/consciousness: patient oriented x3 HEENT Head: Yes normocephalic Mouth: Normal oral and palatal mucosa present Eyes EOM: EOMs intact bilaterally Neck Neck: Yes supple Resp Auscultation: clear to auscultation bilaterally Cardio Jugular venous distension: no JVD Rate: regular rate GI Palpation (GI): Soft to palpation Auscultation: normal bowel sounds General: Yes no CVA tenderness Back/Spine/Pelvis Back: no CVA tenderness Skin General skin exam: no rashes or lesions noted Neuro General: patient oriented x3 and moves all extremities Results Reviewed Nephrology Results: Hgb 11.0 g/dl (12.0-16.0) L 01/09/25 WBC 7.1 X10*3/uL (4.8-10.8) 01/09/25 Plt Count 175 X10*3/uL (160-400) 01/09/25 Sodium 139 mmol/L (135-145) 01/09/25 Potassium 4.2 mmol/L (3.3-5.1) 01/09/25 Chloride 103 mmol/L (96-108) 01/09/25 Carbon Dioxide 27 mmol/L (22-29) 01/09/25 BUN 37 mg/dL (9-16) H 01/09/25 Creatinine 1.05 mg/dL (0.5-1.4) 01/09/25 Urine Protein Negative mg/dL (Neg-Trace) 01/09/25 Assessment & Plan Assessment & Plan (1) CKD (chronic kidney disease) stage 3, GFR 30-59 ml/min: Code(s): N18.30 - Chronic kidney disease, stage 3 unspecified Category: Medical Qualifiers: Chronic kidney disease stage 3 subtype: stage 3a (GFR 45-59) Qualified Code(s): N18.31 - Chronic kidney disease, stage 3a (2) Hypertension: Code(s): I10 - Essential (primary) hypertension Category: Medical Qualifiers: Hypertension type: renovascular hypertension Qualified Code(s): I15.0 - Renovascular hypertension Plan Kristine has CKD 3 A and her renal functions are stable. She should continue current dose of lasix . Her ECHO is essentially unchanged but has features of diastolic dysfunction. She had upper and lower endoscopy. Her BP is not well controlled. She has CKD stage 3 due to vascular disease. Her volume status is optimal. She is watching her blood sugars closely. She is on lisinopril. She may be a candidate for Jardiance or Farxiga in the future. She avoids nonsteroidal anti-inflammatories. She will benefit from weight loss. I increased her lisinopril to 15 mg daily. I did not make any other medication changes today. Follow-up blood work ordered.Answered all questions Orders: Orders Creatinine 3 Months I15.0 - Renovascular hypertension, N18.31 - Chronic kidney disease, stage 3a Blood Urea Nitrogen 3 Months I15.0 - Renovascular hypertension, N18.31 - Chronic kidney disease, stage 3a Electrolytes 3 Months I15.0 - Renovascular hypertension, N18.31 - Chronic kidney disease, stage 3a Coding Level of Care Code Est Pt Level 4 (54031) Diagnoses Stage 3a chronic kidney disease N18.31 Chronic kidney disease stage 3 subtype: stage 3a (GFR 45-59) Renovascular hypertension I15.0 Hypertension type: renovascular hypertension
[2025-01-14 15:59] VITALS: BP 150/62; PULSE 68; O2SAT 96; BMI 30.8
--- OUTSIDE RECORDS SUMMARY | 2025-01-14 19:40 | XMS_ITS | Encounter Summary ---
Author Organization [facility] Address [address] [place] [address] Care Team Providers Care Superintendent Drilling Name Role Phone Eva Watson MD Primary Care Prov ider Reason for Visit * Reason Comments Sinusitis Having thick yellow and orange secretions- ongoing issue Encounter Details Date Type Department Care Team (Late st Contact Info) Description 12/26/2024 3:00 PM EST Office Visit Adult Medicine [address] [address] Trudy Baez PA [address] [place], [place] Acute recurrent maxillary sinusitis (Primary Dx) [...] care for your loved ones. For example, childbirth educator or elderly care for an older adult? [...] (BMI) of 35.0 to 39.9 with comorbidity ([facility]) 08/12/2022 Stage 3a chronic kidney disease ([facility]) 01/26/2021 Obstructive sleep apnea 11/15/2020 History of 2019 novel coronavirus disease (COVID-19) 06/04/2020 Acute gastric ulcer without hemorrhage or perforation 09/12/2019 Adjustment disorder with mixed anxiety and depressed mood 01/29/2019 Anxiety 09/20/2018 Cyst of right breast 08/17/2018 Lone atrial fibrillation ([facility]) 12/28/2017 CKD (chronic kidney disease), stage III ([facility]) 12/28/2017 HSV (herpes simplex virus) infection 08/11/2016 [...] 3:00 PM EDT Office Visit Adult Medicine [address] [phone] Eva Watson MD [address] [place] [address] 07/01/2025 10:30 AM EDT Office Visit Pulmonolgy - [address] [phone] Ana Isaac MD [address] [address] 07/21/2025 4:00 PM EDT Appointment Radiology Department - [address] [phone] documented as of this encounter Visit Diagnoses [...] documented as of this encounter Care Teams Superintendent Drilling Relationship Specialty Start Date End Date Eva Watson MD [address] [place] [address] PCP - General Internal Medicine 06/13/22 documented as of this encounter
--- OUTSIDE RECORDS SUMMARY | 2025-01-14 19:40 | XMS_ITS | Clinical Summary ---
Author Organization [facility] Address [address] [facility] [address] [place] [address] Phone Care Team Providers Care Flag Signalman Name Role Phone Eva Reardon MD Primary [...] Sigmoidoscopy 2015 Influenza Vaccine (#1) 2024 Insurance [facility] Care Teams Flag Signalman Relationship Specialty Start Date End Date Eva Reardon MD PCP - General 08/11/22
--- OUTSIDE RECORDS SUMMARY | 2025-01-14 19:40 | XMS_ITS ---
Author Organization [facility] Address [address] [place] [address] Care Team Providers Care Harbor Pilot Name Role Phone Eva Chen Primary Care Provider Unava Gonzales Meier [phone] Medications Medication SIG (Take, Route, Frequency, Duration) Notes Start Date End Date Status Voltaren 1 % as directed Externally Active Encounters Encounter Location Date Provider Diagnosis [facility] [address] [place] [address] 10/16/2023 Gonzales Saucedo Pain in left foot [...] Kristine BURGESS LDOB:[birth year] (59 yo F)Acc No.[id number]:10/16/2023 Progress Notes Patient:?Kristine BURGESS Provider:?Gonzales Saucedo DPM :1965???Age:58 Y???Sex:Female D ate:10/16/2023 Address:[address] [place], [id number] Pcp:Eva Chen Subjective: * Chief Complaints: * [...] be necessary, LEFT CC joint.? * Procedure Codes:?83147 X-RAY EXAM OF LEFT FOOT 3V, Modifiers: 26 , [place], [address] X- RAY EXAM OF RIGHT FOOT 3V, [...] DPM Date:? 023 Generated for Main lara/Catherine/Juvenalsmitting on:?01/14/2025 07:40 PM EST History and Physical Notes * [...]
--- OUTSIDE RECORDS SUMMARY | 2025-01-14 19:40 | XMS_ITS | Encounter Summary ---
Author Organization [facility] Address [address] [place] [address] Phone Care Team Providers Care Hyperion Administrator Name Role Phone Eva Reardon MD Primary Care Provider + Encounter Details Date Type Department Care Team (Late st Contact Info) Description 04/26/2022 Telephone [facility] [address] [place] [address] Sacha Malik MD Social History [...] on filedocumented in this encounter Care Teams Hyperion Administrator Relationship Specialty Start Date End Date Eva Reardon MD PCP - General 08/11/22 documented as of this encounter
--- OUTSIDE RECORDS SUMMARY | 2025-01-14 19:41 | XMS_ITS | Patient Health Record ---
Author Organization [facility] Address [address] [place] [address] Care Team Providers Care Sliver Handler Name Role Phone Eva Chen Primary Care Provider Unava Gonzales Meier Unavailable [phone] Allergies Allergen (clinical drug ingredient) Drug/Non Drug [...] Status Risk Notes Problem Acquired hallux valgus (75567809) Hallux valgus (acquired), left foot (M20.12) Active confirmed Problem Localized, primary osteoarthritis of the ankle and/or foot (937040531) Primary osteoarthrit is, left ankle and foot (M19.072) Active confirmed Problem Acquired hallux valgus (45976487) Hallux valgus (acquired), right foot (M20.11) Active confirmed Plan Of Treatment Pending Test Test Name Order Date X ray : Foot, right 2V 08/30/2016 X ray : Foot, left 3V 09/19/2023 X ray : Foot, right 3V 05/26/2022 X ray : Foot, right 3V 09/19/2023 69097-Fkha Destruction, 1-14 08/30/2016 51647-Vpjh Destruction, 1-05/28/2013 41307-Qdmg Destruction, -07/04/2013 64542, J0702- INJECT or DRAIN, JOINT/BUR SA 09/19/2023, J4043-QIHFR/INJECT, JOINT/BURSA 1 11/19/2022, W6589-MQCQH/INJECT, JOINT/BURSA 0 05/26/2022, I1473-CFIOU/INJECT, JOINT/BURSA 0 07/06/2022 Insurance Providers Payer Name Payer Address Payer Phone Subscriber Number Group Number Insured Name Patient Relationship to Insured Coverage Start Date Coverage End Date [facility] [address] [place] [address] [id number] Kristine Freitas Self - patient is the [...]
--- OUTSIDE RECORDS SUMMARY | 2025-01-14 19:41 | XMS_ITS | Clinical Summary ---
Author Organization [facility] Address [address] [place] [address] Phone Care Team Providers Care Truck Sales Manager Name Role Phone Eva Watson MD Primary [...] by mouth 2 (two) times a day. 06/30/20 21 Active calcium citrate-vitami n D3 200 mg-6.25 mcg (250 unit) tablet Take by mouth 1 (one) time each day. Active cholecalcifero l (VITAMIN D-3) 50 mcg (2,000 unit) tablet Take 1 tablet (2,000 Units total) by mouth 1 (one) time each day. 02/10/20 23 Active clindamycin (CLEOCIN) 150 mg capsule Take 4 capsules (600 mg total) by mouth. 05/09/20 23 Active dilTIAZem XR (DILACOR XR) 180 mg 24 hr capsule Take 1 capsule (180 mg total) by mouth. 03/06/20 23 Active pantoprazole (PROTONIX) 20 mg EC tablet Take 1 tablet (20 mg total) by mouth 2 (two) times a day. Active simvastatin (ZOCOR) 20 mg tablet Take 1 tablet (20 mg total) by mouth. 02/10/20 23 Active furosemide (LASIX) 20 mg tablet Take by mouth. Active ferrous sulfate 325 mg (65 mg iron) EC tablet Take 1 tablet (325 mg total) by mouth 2 (two) times a day. Do not crush, chew, or split. Active lisinopriL (PRINIVIL,ZEST RIL) 2.5 mg tablet 12/02/19 25 Active sertraline (ZOLOFT) 100 mg tablet Take 2 tablets (200 mg total) by mouth 1 (one) time each day. 180 each 3 12/02/19 25 026 Active azithromycin (ZITHROMAX) 250 mg tablet Take 2 tabs on day one and then 1 tab for the next 4 days 6 tablet 12/26/19 25 Active fluticasone propionate (FLONASE) 50 mcg/actuation nasal spray USE 2 SPRAYS INTO EACH NOSTRIL ONCE DAILY 16 mL 1 01/15/20 25 Active albuterol HFA (PROAIR HFA ; PROVENTIL HFA ; VENTOLIN HFA) 90 mcg/actuation inhaler Inhale 2 Puffs into the lungs every 4 hours as needed. 025 Discontinued(Pa tient Discharge) fluticasone propionate (FLONASE) 50 mcg/actuation nasal spray USE 2 SPRAYS INTO EACH NOSTRIL ONCE DAILY 16 mL 1 11/15/19 25 025 Discontinued Active Problems Problem Noted Date Diagnosed Date [...] monitor. Obstructive sleep apnea 11/15/2020 Overview (12/27/2023): [facility] sleep medicine. Rec AUto CPAP 8-15 cmH2O [facility] Polysomnogram: Date 10/28/2020; Wt 209#; BMI 35; [...] 3:00 PM EST Office Visit Adult Medicine [address] [phone] Trudy Baez PA Acute recurrent maxillary sinusitis (Primary Dx) [facility] [address] [phone] Amy Bishop MA DME request 12/[facility] [address] [address] Ana Isaac MD 12/06/2024 3:30 PM EST Office Visit [facility] [place] [address] [place] [phone] Radu Stiles SUPERINTENDENT CEMETERY Symptoms of upper respiratory infection (URI) (Primary Dx); COVID 12/05/2024 Telephone Adult Medicine [address] [address] Eva Espinoza MD Sore Throat 12/04/2024 3:16 PM EST - 12/04/2024 11:59 PM EST Hospital Encounter Radiology Department - [address] [phone] Thyroid nodule Discharge Disposition: Home or Self Care 12/02/2024 2:30 PM EST Office Visit Adult Medicine East - [address] [phone] Eva Espinoza MD Essential hypertension, benign (Primary Dx); Lone atrial fibrillation (CMS/HCC); Hyperlipidemia with target LDL less than 130; Stage 3a chronic kidney disease (CMS/HCC); Thyroid nodule; Encounter for screening involving social determinants of health (SDoH); Screening for depression 11/29/2024 2:55 PM EST - 11/29/2024 11:59 PM EST Hospital Encounter CT Scan - [address] [phone] Pulmonary nodule Discharge Disposition: Home or Self Care 11/27/2024 Telephone Pulmonolgy - [address] [place] [phone] Amy Bishop MA DME request 11/26/2024 4:15 PM EST - 11/26/2024 11:59 PM EST Hospital Encounter XRAY - [address] [phone] Congestive heart failure, unspecified HF chronicity, unspecified heart failure type (CMS/HCC) Discharge Disposition: Home or Self Care 10/17/2024 3:45 PM EST Office Visit Obstetrics and Gynecology - [address] [phone] Parul Murillo MD Encounter for gynecological examination without abnormal finding (Primary Dx); Breast complaint from Last 3 Months Immunizations Name Administration Dates Next Due Influenza Quadravalent, MDCK , 0.5ml, preservative free (Flucelvax) 6mo and older 09/15/2021,10/07/2020 Td Tetanus diptheria (Tdvax) 7yo and older 05/22 Tdap Tetanus diptheria acell ular pertussis (Boostrix; Adacel) 7yo and older 05/02/2016 Surgical History Surgery Date Site/Laterality Comments BUNIONECTOMY 1993 PROCEDURE: NH CORRJ HLX VLGS BNCTY SESMDC W/DOUBLE OSTEOTOMY; COMMENT: right foot SECTION PROCEDURE: [place] DELIVERY ONLY; COMMENT: x2 CARDIAC CATHETERIZATION 2003 PROCEDURE: HISTORICAL CARDIAC CATH OTHER SURGICAL HISTORY 1966 PROCEDURE: NH REPAIR PATENT DUCTUS ARTERIOSUS LIGATION OTHER SURGICAL [...] Alive 8 - PDA Father (Age 50) [place] with hy pertension; hypercholesterolemia Maternal Grandfather (Age [...] ed Within the last 3 months, ho porter many times did you visit the emergency [...] for your loved ones. For example, child care worker or elderly care for an older [...] EDT Office Visit Adult Medicine East - [address] [phone] Eva Watson MD [address] [place] [address] 07/01/2025 10:30 AM EDT Office Visit Pulmonolgy - [place] [address] [phone] Ana Isaac MD [address] [address] 07/21/2025 4:00 PM EDT Appointment Radiology Department - [address] [phone] Health Maintenance Due Date Last Done Comments [...] 05/24/2025 05/24/2024, 05/24/2024 Breast Cancer Screening 07/13/2025 07/13/20, 07/13/2024, 08/02/2023, Additional history exists Depression Screening [...] Priority Date/Time Associated Diagnosis Comments POC RAPID [id number], MOLECULAR Routine 12/06/2024 3:38 PM EST Symptoms [...] Health Maintenance Results * (ABNORMAL) Poc Rapid [id number], MOLECULAR (12/06/2024 3:38 PM EST) COVID-19/SARS- COV-2 [...] Signed Date: 12/04/2024 17:45 ET Workstation ID: [id number] Transcribed By: Self Edit Transcribed Date: 12/04/2024 [...] Signed Date: 12/04/2024 17:45 ET Workstation ID: [id number] Transcribed By: Self Edit Transcribed Date: 12/04/2024 17:42 ET Eva Watson MD IM US PROCEDURES Final Result * CT Chest [...] Signed Date: 11/29/2024 17:37 ET Workstation ID: [id number] Transcribed By: Self Edit Transcribed Date: 11/29/2024 [...] Signed Date: 11/29/2024 17:37 ET Workstation ID: [id number] Transcribed By: Self Edit Transcribed Date: 11/29/2024 [...] Signed Date: 11/26/2024 16:47 ET Workstation ID: [id number] Transcribed By: Self Edit Transcribed Date: 11/26/2024 [...] Signed Date: 11/26/2024 16:47 ET Workstation ID: [id number] Transcribed By: Self Edit Transcribed Date: 11/26/2024 [...] evidence of malignancy. BI-RADS 1 - negative Parul Murillo MD IMG XR PROCEDURES Final Res ult * Annual BMP Blood Test (05/24/2024) Pathologist [facility] Annual BMP Blood Test Abstracted Historical Provider HEALTH MAINTENANCE Final Result * (ABNORMAL) Lipid panel (05/24/2024) Pathologist [facility] LDL/HDL Ratio 3 0 - 4 Triglycerides 72 0 - 150 mg/dL Cholesterol 181 0 - 200 mg/dL HDL 65 >=40 mg/dL LDL Cholesterol 102(A) 0 - 100 mg/dL Blood Venous blood specimen / Unknown Historical Provider LAB BLOOD ORDERABLES Emily l Result * Bone Density Scan (Dexa Scan) (08/03/2023) [facility] Bone Density Scan Normal Anatomical Region Laterality Modality Other Historical Provider HEALTH MAINTENANCE Final Result * Hepatitis C Screening (09/26/2022) Pathologist [facility] Hepatitis C Screening Abstracted Result [facility] Historical Provider HEALTH MAINTENANCE Final Result * Colonoscopy (01/01/2021) Pathologist [facility] Colonoscopy No interpretation with ,abstracted Anatomical Region Laterality Modality Other [facility] Provider HEALTH MAINTENANCE Final Result * Cervical Cancer Screening: HPV (12/15/2020) Pathologist [facility] Cervical Cancer Screening: HPV No interpretation with Negative, abstracted [facility] Provider HEALTH MAINTENANCE Final Result from Last 3 Months or Most Recently Relevant to Health Maintenance Insurance [facility] Care Teams Truck Sales Manager Relationship Specialty Start Date End Date Eva Watson MD [address] [place] [address] PCP - General Internal Medicine 06/13/22
--- OUTSIDE RECORDS SUMMARY | 2025-01-14 19:41 | XMS_ITS ---
Author Organization [facility] Address [address] [place] [address] Care Team Providers Care Inbound Sales Representative Name Role Phone Eva Chen Primary Care Provider Unava ilGonzales To [phone] REASON FOR VISIT cx 10/16 Encounters Encounter Location Date Provider Diagnosis [facility] [address] [place] [address] 10/12/2023 Gonzales Saucedo Plan Of Treatment No Information Progress Notes * LOUISRODOLFOKristine Edwards LDOB:[birth year] (58 yo F)Acc No.[id number]:10/12/2023 Patient:?Kristine Freitas :1965???Age:58 Y???Sex:Female Address:[address] [place] [address] * true * Date:? Generated for Printi ng/Faduongg/eTransmitting on:?01/14/2025 07:40 PM EST
--- OUTSIDE RECORDS SUMMARY | 2025-01-14 19:41 | XMS_ITS ---
Author Organization [facility] Address [address] [facility] [place] [address] Care Team Providers Care Wheelchair Rental Clerk Name Role Phone Eva Chen Primary Care Provider Unava Gonzales Meier Unavailable [phone] Allergies Allergen (clinical drug ingredient) Drug/Non Drug [...] or DRAI N, JOINT/BURSA 09/19/2023 N/A , M9970-ZPOQK/INJECT, JOINT/BURSA 09/19/2023 N/A Encounters Encounter Location Date Provider Diagnosis [facility] [address] [address] 09/19/2023 Gonzales Saucedo Pain in left foot [...] J0702- INJECT or DRAIN, JOINT/BUR SA 09/19/2023, P3659-TROTQ/INJECT, JOINT/BURSA 1 11/19/2022 Next Appt Details Follow [...] 10, RIGHT2-4th mtpj's Med: Joint,Bursa (Sinus Tarsi,AJ) 38353, J0702 Injection #1 Med/Ankle joint bursa/capsule 1cc [...] Kristine BURGESS LDOB:[birth year] (58 yo F)Acc No.[id number]:09/19/2023 Progress Note Patient:?Kristine Burgess L Provider:?Gonzales Saucedo DPM :1965???Age:58 Y???Sex:Female D ate:09/19/2023 Address:[address] [place] [address] [facility] Pcp:Eva Chen Subjective: * Chief Complaints: * [...] swimming. ?Marital status: . 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 * Medications:?TakingCalcium C itrate + D Chlorthalidone [...] out of 10, RIGHT2-4th mtpj's.?Med: Joint,Bursa (Sinus Tarsi,AJ)?17752, J0702 Injection #1 Med/Ankle joint bursa/capsule 1cc [...] be necessary, LEFT CC joint.? * Procedure Codes:?27464 X-RAY EXAM OF LEFT FOOT 3V, Modifiers: 26 , [id number] X-RAY EXAM OF RIGHT FOOT 3V, Modifiers: 26 , [id number] INJ BETAMETHSN ACTAT&SOD PHOSPH-3MG, Units: 2.00 06883 DRAIN/INJECT, JOINT/BURSA, Modifiers: XS 67279 DRAIN/INJECT, JOINT/BURSA, Modifiers: XS * Preventive Medicine:? [...] DPM Date:? 023 Generated for Main lara/Catherine/Cuco on:?01/14/2025 07:41 PM EST History and Physical Notes * [...]
--- OUTSIDE RECORDS SUMMARY | 2025-01-14 19:41 | XMS_ITS | Clinical Summary ---
Author Organization [address] Address [address] [place] [phone] Phone Care Team Providers Care Unit Reactor Operator Name Role Phone Pennie Souza MD Primary Care Provider [phone] Allergies Active Allergy Reactions Criticality Noted Date [...] age to complete this topic Insurance [employer] Care Teams Unit Reactor Operator Relationship Specialty Start Date End Date Pennie Souza MD PCP - General Internal Medicine 01/19/20
--- OUTSIDE RECORDS SUMMARY | 2025-01-14 19:41 | XMS_ITS | Patient Health Record ---
Author Organization [facility] Address [address] [place] [address] Care Team Providers Care Manager Community Name Role Phone KARINA BRODERICK Unavailable [phone] ALLERGIES Allergen (clinical drug ingredient) Drug/Non Drug [...] due to excess calories (E66.09) Active confirmed 412688326 Problem Essential (primary) hypertension (I10) Active confirmed 18950412 Problem Coarctation of aorta (Q25.1) Active confirmed 7171878 Problem Pure hypercholesterolemia (E78.00) Active confirmed 611906485 Problem Body mass index [BMI ] 37.0-37.9, adult (Z68.37) Active confirmed 110101959 Problem PAF (paroxysmal atri al fibrillation) (I48.0) Active confirmed 151000293 PLAN OF TREATMENT No Information Insurance Providers Payer Name Payer Address Payer Phone Subscriber Number Group Number Insured Name Patient Relationship to Insured Coverage Start Date Coverage End Date [facility] [address] [place] [address] [id number] MILAN CLARK Self - patient is the insured MEDICAL (GENERAL) HISTORY Medical History History ICD Code high blood pressure high cholesterol hemorrhoids anemia kidney disease anxiety depression seasonal allergies Surgical History Surgery Date(Month/Year) patent ductus arterialosos 09/1967 coarctation of aorta 08/1974 angioplasty 12/1985
== END 2025-01-14 16:32 | disposition home or self-care (01) ==
PROVIDERS: PCP Internal Medicine; Visit Provider Internal Medicine Nephrology
DX: I12.9 Hypertensive chronic kidney disease with stage 1 through stage 4 chronic kidney disease, or unspecified chronic kidney disease (principal); N18.31 Chronic kidney disease, stage 3a
CPT/HCPCS: 99214

== ENCOUNTER → 2025-01-14 15:38 | Outpatient (BNVA) | payer OTHER, SELFPAY | PROVIDERS: PCP Internal Medicine; Visit Provider Internal Medicine Nephrology | DX: N18.31 Chronic kidney disease, stage 3a (principal); I15.0 Renovascular hypertension ==

== ENCOUNTER 2025-04-01 15:22 | Outpatient (REF) | payer OTHER, SELFPAY ==
[2025-04-01 15:33] LABS: MANUAL DIFF FLAG NO
[2025-04-01 15:52] LABS: Basophils Percent Auto 0.4 % (0-2); Eosinophils Absolute Auto 0.1 X10*3/uL (0.0-0.4); Eosinophils Percent Auto 2.1 % (0-4); Hemoglobin 11.6 g/dl (12.0-16.0); Imm Gran Abs Auto 0.02 X10*3/uL (0.00-0.03); Imm Gran Pct Auto 0.3 % (0.0-0.4); Lymphocytes Absolute Auto 1.6 X10*3/uL (1.2-4.9); Lymphocytes Percent Auto 23.2 % (20-40); Mean Corpuscular HGB Conc 34.1 g/dl (31.0-35.0); Mean Platelet Volume 11.2 fL (9.4-12.3); Monocytes Absolute Auto 0.5 X10*3/uL (0.1-1.2); Monocytes Percent Auto 7.5 % (2-11); Neutrophils Absolute Auto 4.5 x10*3/uL (2.0-8.3); Neutrophils Percent Auto 66.5 % (45-73); Platelet Count 213 X10*3/uL (160-400); Red Cell Distribution Width 13.1 % (11.0-16.0); White Blood Count 6.8 X10*3/uL (4.8-10.8)
[2025-04-01 15:59] LABS: Appearance Urine Clear; Color Urine Yellow; Glucose Urine UA Negative (Negative); Leukocyte Esterase Urine Large (3+) (Negative); Nitrite Urine Negative (Negative); UMIC TRIGGER UA YES; Urine Blood Negative (Negative); Urine Ketones Negative (Negative); Urine Protein Negative (Neg-Trace)
[2025-04-01 16:04] LABS: Bacteria Urine Trace (None Seen); Hyaline Casts Urine 0-2 /LPF (0-2); RBC Urine 0-2 /HPF (0-2); WBC Urine >50 /HPF (0-5)
[2025-04-01 16:20] LABS: Albumin Level 4.3 g/dL (3.5-5.0); Anion Gap 14 (12-20); Blood Urea Nitrogen 37 mg/dL (9-16); Calcium 9.4 mg/dL (8.4-10.2); Carbon Dioxide 26 mmol/L (22-29); Chloride 103 mmol/L (96-108); Estimated Glomerular Filt Rate 41; Iron 80 mcg/dL (30-160); Percent Iron Saturation 27 % (15-50); Potassium 4.6 mmol/L (3.3-5.1); Sodium 138 mmol/L (135-145); Total Iron Binding Capacity 298 mcg/dL (228-428); Unsaturated Iron Binding 218 ug/dL
[2025-04-01 16:22] LABS: Creatinine Urine 132.91 mg/dL; Protein/Creatinine Ratio, Ur 0.06 (<0.2); Total Protein Urine Random 8 mg/dL (<12)
--- OUTSIDE RECORDS SUMMARY | 2025-04-01 16:26 | XMS_ITS | Clinical Summary ---
Author Organization [facility] Address [address] [facility] [address] [place] [address] Phone Care Team Providers Care Acute Coordinator Name Role Phone Eva Reardon MD Primary [...] 02/04/2022 11/07/20 22 Hyperlipidemia 02/04/2022 11/07/2022 Immunizations Immunization Administration Dates Next Due Pfizer SARS-COV-2 12/10/2021 [...] Last Done Comments Breast Cancer Screening 1966 Hepatitis B Vaccine (1 of 3 - 19+ 3-dose series) 1985 Pneumococcal Vaccine: 50+ Ye ars (1 of 2 - PCV) 1985 Colorectal Cancer Screening: Annual FOBT 2015 Colorectal Cancer Screening: Colonoscopy 2015 Colorectal Cancer Screening: Sigmoidoscopy 2015 Influenza Vaccine (Season Ended) 2025 09/15/20 21, 10/07/2020 Insurance [facility] Care Teams Acute Coordinator Relationship Specialty Start Date End Date Eva Reardon MD PCP - General 08/11/22
--- OUTSIDE RECORDS SUMMARY | 2025-04-01 16:26 | XMS_ITS | Clinical Summary ---
Author Organization [address] Address [address] [place] [address] Phone Care Team Providers Care Refrigeration Technician Name Role Phone Pennie Souza MD Primary Care Provider [phone]- [phone] Allergies Active Allergy Reactions Criticality Noted Date [...] cancer screening, Colonoscopy 2011 Diabetes screening 2011 Pneumococcal Vaccine (50+ ye ars) (1 of 1 - PCV) 2016 Shingles vaccine (Shingrix) (1 of 2 - Shingrix (RZV) 2 Dose Standard Series) 2016 Covid-19 vaccine series (1 - 2023-25 season) 2024 Influenza vaccine 07/14/2025 RSV Immunization (1 - 1-dose 75+ series) 2041 Meningococcal Vaccine Aged Out No cody deborah eligible based on patient's age to complete this topic Insurance BS BS BS Care Teams Refrigeration Technician Relationship Specialty Start Date End Date Pennie Souza MD PCP - General Internal Medicine 01/19/20
--- OUTSIDE RECORDS SUMMARY | 2025-04-01 16:26 | XMS_ITS ---
Author Organization [facility] Address [address] [place] [address] Care Team Providers Care Metal Burnisher Name Role Phone Eva Chen Primary Care Provider Unava Gonzales Meier [phone] Medications Medication SIG (Take, Route, Frequency, Duration) Notes Start Date End Date Status Voltaren 1 % as directed Externally Active Encounters Encounter Location Date Provider Diagnosis [facility] [address] [place] [address] 10/16/2023 Gonzales Saucedo Pain in left foot [...] Kristine BURGESS LDOB:[birth year] (59 yo F)Acc No.[id number]:10/16/2023 Progress Notes Patient:?Kristine BURGESS Provider:?Gonzales Saucedo DPM :1965???Age:58 Y???Sex:Female D ate:10/16/2023 Address:[place], [place] Pcp:Eav Chen Subjective: * Chief Complaints: * ??? [...] be necessary, LEFT CC joint.? * Procedure Codes:?43102 X-RAY EXAM OF LEFT FOOT 3V, Modifiers: 26 , [place], [address] X- RAY EXAM OF RIGHT FOOT 3V, [...] Saucedo DPM Date:? 023 Generated for Main lara/Catherine/eTvandanasmitting on:?04/01/2025 04:25 PM EDT History and Physical Notes * HPI (History [...] and ti me Vascular DP PULSES (B): /4, B/L PT PULSES (B): 11/16, B/L CAPILLARY FILL TIME: 3 secs. per digit, B/L TEMPERTURE GRADIENT (C): warm to cool, p roximal to distal, B/L TROPHIC CONDITION-TEXTURE/ELASTICITY/TURGOR/HAIR GROWTH (B): normal, B/L EDEMA (C): 11/16, Right ff TELANGECTASIA: absent VARICOSITIES: absent PIGMENTATION: normal, B/L
--- OUTSIDE RECORDS SUMMARY | 2025-04-01 16:26 | XMS_ITS | Encounter Summary ---
Author Organization [facility] Address [address] [place] [address] Phone Care Team Providers Care Comfort Station Attendant Name Role Phone Eva Reardon MD Primary Care Provider + Encounter Details Date Type Department Care Team (Late st Contact Info) Description 04/26/2022 Telephone [facility] [address] [place] [address] Sacha Malik MD Social History [...] on filedocumented in this encounter Care Teams Comfort Station Attendant Relationship Specialty Start Date End Date Eva Reardon MD PCP - General 08/11/22 documented as of this encounter
--- OUTSIDE RECORDS SUMMARY | 2025-04-01 16:26 | XMS_ITS ---
Author Organization [facility] Address [address] [place] [address] Care Team Providers Care Consumer Affairs Manager Name Role Phone Eva Chen Primary Care Provider Unava ilGonzales To [phone] REASON FOR VISIT cx 10/16 Encounters Encounter Location Date Provider Diagnosis [facility] [address] [place] [address] 10/12/2023 Gonzales Saucedo Plan Of Treatment No Information Progress Notes * SHASHISAURABHKristine Edwards LDOB:[birth year] (58 yo F)Acc No.[id number]:10/12/2023 Patient:?Kristine Freitas :1965???Age:58 Y???Sex:Female Address:[address] [place] [address] * true * Date:? Generated for Printi ng/Faxing/eTransmitting on:?04/01/2025 04:25 PM EDT
--- OUTSIDE RECORDS SUMMARY | 2025-04-01 16:26 | XMS_ITS | Clinical Summary ---
Author Organization [address] [facility] Address [address] [place] [address] Phone Care Team Providers Care Rhinestone Setter Name Role Phone Eva Watson MD Primary [...] by mouth 2 (two) times a day. 06/30/2021 Active calcium citrate-vitamin D3 200 mg-6.25 mcg (250 unit) tablet Take by mouth 1 (one) time each day. Active cholecalciferol (VITAMIN D-3) 50 mcg (2,000 unit) tablet Take 1 tablet (2,000 Units total) by mouth 1 (one) time each day. 02/09/2023 Active clindamycin (CLEOCIN) 150 mg capsule Take 4 capsules (600 mg total) by mouth. 05/09/2023 Active dilTIAZem XR (DILACOR XR) 180 mg 24 hr capsule Take 1 capsule (180 mg total) by mouth. 03/06/2023 Active pantoprazole (PROTONIX) 20 mg EC tablet Take 1 tablet (20 mg total) by mouth 2 (two) times a day. Active simvastatin (ZOCOR) 20 mg tablet Take 1 tablet (20 mg total) by mouth. 02/09/2023 Active furosemide (LASIX) 20 mg tablet Take by mouth. Active ferrous sulfate 325 mg (65 mg iron) EC tablet Take 1 tablet (325 mg total) by mouth 2 (two) times a day. Do not crush, chew, or split. Active lisinopriL (PRINIVIL,ZESTR IL) 2.5 mg tablet 12/02/2024 Active sertraline (ZOLOFT) 100 mg tablet Take 2 tablets (200 mg total) by mouth 1 (one) time each day. 180 each 3 12/02/2024 12/02/19 26 Active azithromycin (ZITHROMAX) 250 mg tablet Take 2 tabs on day one and then 1 tab for the next 4 days 6 tablet 12/26/2024 Active fluticasone propionate (FLONASE) 50 mcg/actuation nasal spray USE 2 SPRAYS INTO EACH NOSTRIL ONCE DAILY 16 mL 1 01/14/2025 Active Active Problems Problem Noted Date Diagnosed [...] (BMI) of 35.0 to 39.9 with comorbidity (CMS/HCC V24, CMS/HCC V28) 08/12/2022 Stage 3a chronic kidney disease (CMS/HCC V24, CM S/HCC V28) 01/26/2021 Assessment & Plan (12/02/2024 4:04 PM EST): Follows regularly with nephrology, kidney function improved. Will continue to monitor. Obstructive sleep apnea 11/15/2020 Overview (12/27/2023): [facility] sleep medicine. Rec AUto CPAP 8-15 cmH2O [facility] Polysomnogram: Date 10/28/2020; Wt 209#; BMI 35; [...] we will schedule US. Lone atrial fibrillation (CMS/HCC V24, CMS/[facility] V 28) 12/28/2017 Assessment & Plan (12/02/2024 4:04 PM EST): Currently asymptomatic. Follows with cardiology. Takes Apixaban 5mg day. Continue same medication. CKD (chronic kidney disease) , stage III (CMS/HCC V24, CMS/HCC V28) 12/28/2017 HSV (herpes simplex virus) infection 08/11/2016 [...] Coarctation surgery 1986: Angioplasty 2004: Cardiac Cath Immunizations Name Administration Dates Next Due Influenza Quadravalent, MDCK , 0.5ml, preservative free (Flucelvax) 6mo and older 09/15/2021,10/07/2020 Td Tetanus diptheria (Tdvax) 7yo and older 05/22 Tdap Tetanus diptheria acell ular pertussis (Boostrix; Adacel) 7yo and older 05/02/2016 Surgical History Surgery Date Site/Laterality Comments BUNIONECTOMY 1993 PROCEDURE: OR CORRJ HLX VLGS BNCTY SESMDC W/DOUBLE OSTEOTOMY; COMMENT: right foot SECTION PROCEDURE: OR DELIVERY ONLY; COMMENT: x2 CARDIAC CATHETERIZATION 2003 PROCEDURE: HISTORICAL CARDIAC CATH OTHER SURGICAL HISTORY 1966 PROCEDURE: OR REPAIR PATENT DUCTUS ARTERIOSUS LIGATION OTHER SURGICAL [...] CKD (chronic kidney disease) , stage III (CMS/HCC V24, CMS/HCC V28) 12/28/2017 DX:CKD (chronic kidney disease), stage III (HCC) Lone atrial fibrillation (CM S/HCC V24, CMS/HCC V28) 12/28/2017 DX:Lone atrial fibrillation (HCC) Dysplastic nevus 09/05/2018 DX:Dysplastic n evus; COMMENT: Severe atypia - Center upper back Anxiety 09/20/2018 DX:Anxiety Severe obesity with body mas s index (BMI) of 35.0 to 39.9 with comorbidity (CMS/HCC V24, CMS/HCC V28) 08/12/2022 DX:Severe obesity with body mass index [...] for your loved ones. For example, children's court magistrate or elderly care for an older adult? [...] 3:00 PM EDT Office Visit Adult Medicine [facility] [address] [place] [address] Eva Watson MD [address] [place] [address] 07/01/2025 10:30 AM EDT [facility] [address] [facility] [address] [place] [address] Ana Isaac MD [address] [facility] [address] [place] [address] 07/21/2025 4:00 PM EDT Appointment Radiology Department - [address] [address] Health Maintenance Due Date Last Done Comments [...] age to complete this topic Meningococcal B Vaccine Aged Out No l onger eligible based on patient's age to complete this topic RSV Immunization Patients Under 20 months Aged Out No longer eligible based on patient's age to complete this topic Varicella Vaccines Aged Out No longer eligible based on patient's age to complete this topic Procedures Procedure Name Priority Date/Time Associated Diagnosis Comments SCREENING MAMMOGRAPHY BI 2-VIEW BREAST INC CAD Routine 07/13/2024 10:17 AM EDT Encounter for screening mammogram for malignant neoplasm of breast ANNUAL BMP BLOOD TEST Routine 05/24/2024 LIPID PANEL Routine 05/24/2024 DEXA SCAN Routine 08/03/2023 HEPATITIS C SCREENING Routine 09/26/2022 COLONOSCOPY Routine 01/01/2021 HPV Routine 12/15/2020 from Last 3 Months or Most Recently Relevant to Health Maintenance Results * SCREENING MAMMOGRAPHY BI 2-VIEW BREAST INC [...] ult * Annual BMP Blood Test (05/24/2024) [facility] Annual BMP Blood Test Abstracted Result [facility] Provider [facility] MAINTENANCE Final Result * (ABNORMAL) Lipid panel (05/24/2024) [facility] LDL/HDL Ratio 3 0 - 4 Triglycerides 72 0 - 150 mg/dL Cholesterol 181 0 - 200 mg/dL HDL 65 >=40 mg/dL LDL Cholesterol 102(A) 0 - 100 mg/dL Blood Venous blood specimen / Unknown Result [facility] Historical Provider LAB BLOOD ORDERABLES Emily l Result * Bone Density Scan (Dexa Scan) (08/03/2023) [facility] Bone Density Scan Normal Anatomical Region Laterality Modality Other Result [facility] Provider HEALTH MAINTENANCE Final Result * Hepatitis C Screening (09/26/2022) [facility] HM Hepatitis C Screening Abstracted Historical Provider HEALTH MAINTENANCE Final Result * Colonoscopy (01/01/2021) [facility] Colonoscopy No interpretation with ,abstracted Anatomical Region Laterality Modality Other Historical Provider HEALTH MAINTENANCE Final Result * Cervical Cancer Screening: HPV (12/15/2020) Pathologist [facility] Cervical Cancer Screening: HPV No interpretation with Negative, abstracted Historical Provider HEALTH MAINTENANCE Final Result from Last 3 Months or Most Recently Relevant to Health Maintenance Insurance [facility] Care Teams Rhinestone Setter Relationship Specialty Start Date End Date Eva Watson MD [address] [place] [address] PCP - General Internal Medicine 06/13/22
--- OUTSIDE RECORDS SUMMARY | 2025-04-01 16:26 | XMS_ITS | Patient Health Record ---
Author Organization [facility] Address [address] [place] [address] Care Team Providers Care Transition Assistant Name Role Phone Eva Chen Primary Care Provider Unava Gonzales Meier Unavailable [phone] Allergies Allergen (clinical drug ingredient) Drug/Non Drug [...] Status Risk Notes Problem Acquired hallux valgus (22788749) Hallux valgus (acquired), left foot (M20.12) Active confirmed Problem Localized, primary osteoarthritis of the ankle and/or foot (873034052) Primary osteoarthrit is, left ankle and foot (M19.072) Active confirmed Problem Acquired hallux valgus (45147029) Hallux valgus (acquired), right foot (M20.11) Active confirmed Plan Of Treatment Pending Test Test Name Order Date X ray : Foot, right 2V 08/30/2016 X ray : Foot, left 3V 09/19/2023 X ray : Foot, right 3V 05/26/2022 X ray : Foot, right 3V 09/19/2023 41374-Wvka Destruction, 1-14 08/30/2016 17375-Qddo Destruction, 1-05/28/2013 47587-Ncdd Destruction, -07/04/2013 45510, J0702- INJECT or DRAIN, JOINT/BUR SA 09/19/2023, I9285-NLVZE/INJECT, JOINT/BURSA 1 11/19/2022, F4207-YFHRV/INJECT, JOINT/BURSA 0 05/26/2022, R9581-DPWST/INJECT, JOINT/BURSA 0 07/06/2022 Insurance Providers Payer Name Payer Address Payer Phone Subscriber Number Group Number Insured Name Patient Relationship to Insured Coverage Start Date Coverage End Date [facility] [address] [place] [address] [id number] Kristine Freitas Self - patient is the [...]
--- OUTSIDE RECORDS SUMMARY | 2025-04-01 16:26 | XMS_ITS | Patient Health Record ---
Author Organization [facility] Address [address] [place] [address] Care Team Providers Care Obstetrical Tech Name Role Phone KARINA BRODERICK Unavailable [phone] Allergies Allergen (clinical drug ingredient) Drug/Non Drug Allergy documented on EMR Reaction Allergy Type Onset Date Status sulfamethoxazole / trimethoprim Bactrim itchiness Drug Allergy Active Biaxin hives, swelling Drug Allergy A ctive ciprofloxacin Cipro nausea Drug Allergy Act anshul Latex Latex rash Allergy Active Penicillin hives Drug Allergy Active Reason For Referral No Information Medications Medication [...] Orally Once a day Active Pulmicort Active Social History Tobacco Use: Social History Observation Description Date Details (start date - stop date) Current Smoker NA - NA Tobacco Use/Smoking Question Answer Notes Are you a current smoker How often do you smoke cigarettes? every day Section Notes: 1 pack a day, 12yrs Problems Problem Type SNOMED Code ICD Code Onset Dates Problem Status W/U Status Risk Notes Problem 393541931 Other obesity du e to excess calories (E66.09) Active confirmed Problem 30006002 Essential (prima ry) hypertension (I10) Active confirmed Problem 8652994 Coarctation of a connie (Q25.1) Active confirmed Problem 276070339 Pure hypercholesterolemia (E78.00) Active confirmed Problem 259890527 Body mass index [BMI] 37.0-37.9, adult (Z68.37) Active confirmed Problem 146598712 PAF (paroxysmal atrial fibrillation) (I48.0) Active confirmed Plan Of Treatment No Information Insurance Providers Payer Name Payer Address Payer Phone Subscriber Number Group Number Insured Name Patient Relationship to Insured Coverage Start Date Coverage End Date [facility] [address] [place] [address] [id number] MILAN CLARK Self - patient is the insured Medical (General) History Medical History History ICD Code high blood pressure high cholesterol hemorrhoids anemia kidney disease anxiety depression seasonal allergies Surgical History Surgery Date(Month/Year) patent ductus arterialosos 09/1967 coarctation of aorta 08/1974 angioplasty 12/1985
[2025-04-01 16:34] LABS: Ferritin 73 ng/mL (10-250)
== END 2025-04-01 15:23 | disposition home or self-care (01) ==
LOC: HO.LAB 15:22
PROVIDERS: PCP Internal Medicine; Visit Provider Internal Medicine Nephrology
DX: N18.31 Chronic kidney disease, stage 3a (principal); I15.0 Renovascular hypertension
CPT/HCPCS: 36415; 80051; 81001; 82040; 82310; 82565; 82570; 82728; 83540; 84156; 84520; 85025

== ENCOUNTER 2025-04-29 15:09 | Outpatient (AMB) | payer OTHER, SELFPAY ==
--- NOTE | 2025-04-29 15:18 | HO.NEPHOV_ITS ---
Vital Signs 04/29/25 15:19 Height 5 ft 5 in Weight 210 lb BMI 34.9 BP 140/56 H Blood Pressure Location Lt brachial Position Sitting Pulse 68 Pulse Source Pulse Oximeter Pulse Oximetry (%) 99 Oxygen Delivery Method Room Air Intake Visit Reasons: 3mon follow-up w/labs-LVM Chinese Herbalist Required: No Accompanied by: Self / Same As Patient Allergies ciprofloxacin [From CIPRO] Allergy (Unknown, Verified 04/29/25 15:21) NAUSEA clarithromycin [From BIAXIN] Allergy (Unknown, Verified 04/29/25 15:21) SWELLING, HIVES Penicillins [PCN] Allergy (Unknown, Verified 04/29/25 15:21) HIVES sulfamethoxazole [From BACTRIM] Allergy (Unknown, Verified 04/29/25 15:) HIVES trimethoprim [From BACTRIM] Allergy (Unknown, Verified 04/29/25 15:) HIVES HPI Comments Details: Kristine was seen in follow-up of her chronic kidney disease and hypertension. Her SOB is better but her weight has gone up with edema by the end of the day. She follows with Dr Isaac . She has history of coarctation of aorta. She has history of 2 episodes of COVID . She has not had any further recent atrial fi brillation. She does not take any nonsteroidal anti-inflammatories. Kristine has not tolerated beta paulino in the past & could not tolerate the spironolactone in the past due to hyperkalemia. Her stress test was negative in the past. She uses CPAP. She has no history of proteinuria. Doppler of her renal arteries did not show any critical renal artery stenosis in the past. Her renal functions continue to remain stable. [facility] Medical History Coarctation of aorta PDA (patent ductus arteriosus) Hypertension CKD (chronic kidney disease) stage 3, GFR 30-59 ml/min Surgical History S/P ablation of atrial fibrillation H/O section History of foot surgery H/O angioplasty Family History Brother Diabetes Father Hypertension Mother Hypertension Stroke Social History Alcohol intake: never Patient Tobacco Use Status: Never used Tobacco Review of Systems Const All systems reviewed & are unremarkable except as noted in HPI and below Physical Exam Vital Signs: Last Vital Signs Pulse 68 04/29/25 15:19 BP 140/56 H 04/29/25 15:19 Pulse Ox 99 04/29/25 15:19 Oxygen Delivery Method Room Air 04/29/25 15:19 BMI result Body Mass Index 34.9 Const General: comfortable and no acute distress Orientation/consciousness: patient oriented x3 HEENT Head: Yes normocephalic Mouth: Normal oral and palatal mucosa present Eyes EOM: EOMs intact bilaterally Neck Neck: Yes supple Resp Auscultation: clear to auscultation bilaterally Cardio Jugular venous distension: no JVD Rate: regular rate GI Palpation (GI): Soft to palpation Auscultation: normal bowel sounds General: Yes no CVA tenderness Back/Spine/Pelvis Back: no CVA tenderness Skin General skin exam: no rashes or lesions noted Neuro General: patient oriented x3 and moves all extremities Results Reviewed Nephrology Results: Hgb 11.6 g/dl (12.0-16.0) L 04/01/25 WBC 6.8 X10*3/uL (4.8-10.8) 04/01/25 Plt Count 213 X10*3/uL (160-400) 04/01/25 Sodium 138 mmol/L (135-145) 04/01/25 Potassium 4.6 mmol/L (3.3-5.1) 04/01/25 Chloride 103 mmol/L (96-108) 04/01/25 Carbon Dioxide 26 mmol/L (22-29) 04/01/25 BUN 37 mg/dL (9-16) H 04/01/25 Creatinine 1.32 mg/dL (0.5-1.4) 04/01/25 Calcium 9.4 mg/dL (8.4-10.2) 04/01/25 Urine Protein Negative mg/dL (Neg-Trace) 04/01/25 Urine Creatinine 132.91 mg/dL 04/01/25 Protein/Creatinin Ratio 0.06 (<0.2) 04/01/25 Assessment & Plan Assessment & Plan (1) CKD (chronic kidney disease) stage 3, GFR 30-59 ml/min: Code(s): N18.30 - Chronic kidney disease, stage 3 unspecified Category: Medical Qualifiers: Chronic kidney disease stage 3 subtype: stage 3a (GFR 45-59) Qualified Code(s): N18.31 - Chronic kidney disease, stage 3a (2) Hypertension: Code(s): I10 - Essential (primary) hypertension Category: Medical Qualifiers: Hypertension type: renovascular hypertension Qualified Code(s): I15.0 - Renovascular hypertension (3) Edema: Code(s): R60.9 - Edema, unspecified Category: Medical Qualifiers: Edema type: unspecified Qualified Code(s): R60.9 - Edema, unspecified Plan Kristine has CKD 3 A and her renal functions are stable. I increased her lasix to 20 mg daily until her weights are back to baseline . Her last ECHO is essentially unchanged but has features of diastolic dysfunction. She has CKD stage 3 due to vascular disease. Her volume status is optimal. She is watching her blood sugars closely. She is on lisinopril which I may need to change to ARB if she has symptoms of joint pains( which she thinks is co relating with increase in dosage). She may be a candidate for Jardiance or Farxiga in the future. She avoids nonsteroidal anti-inflammatories. She will benefit from weight loss. I did not make any other medication changes today. Follow-up blood work ordered.Answered all questions Orders: Orders Creatinine 4 Weeks I15.0 - Renovascular hypertension, N18.31 - Chronic kidney disease, stage 3a Blood Urea Nitrogen 4 Weeks I15.0 - Renovascular hypertension, N18.31 - Chronic kidney disease, stage 3a Electrolytes 4 Weeks I15.0 - Renovascular hypertension, N18.31 - Chronic kidney disease, stage 3a Coding Level of Care Code Est Pt Level 4 (61474) Diagnoses Stage 3a chronic kidney disease N18.31 Chronic kidney disease stage 3 subtype: stage 3a (GFR 45-59) Renovascular hypertension I15.0 Hypertension type: renovascular hypertension Edema, unspecified type R60.9 Edema type: unspecified
[2025-04-29 15:19] VITALS: BP 140/56; PULSE 68; O2SAT 99; BMI 34.9
--- OUTSIDE RECORDS SUMMARY | 2025-04-29 17:40 | XMS_ITS | Clinical Summary ---
Author Organization [facility] Address [address] [facility] [address] [place] [address] Phone Care Team Providers Care Abrasive Worker Name Role Phone vEa Reardon MD Primary Care Provider + Allergies [...] (Season Ended) 2025 09/15/20 21, 10/07/2020 Insurance [facility] Care Teams Abrasive Worker Relationship Specialty Start Date End Date Eva Reardon MD PCP - General 08/11/22
== END 2025-04-29 16:01 | disposition home or self-care (01) ==
LOC: HO.HKAS 15:09
PROVIDERS: PCP Internal Medicine; Visit Provider Internal Medicine Nephrology
DX: I12.9 Hypertensive chronic kidney disease with stage 1 through stage 4 chronic kidney disease, or unspecified chronic kidney disease (principal); N18.31 Chronic kidney disease, stage 3a; R60.9 Edema, unspecified
CPT/HCPCS: 99214

== ENCOUNTER → 2025-04-29 15:09 | Outpatient (BNVA) | payer OTHER, SELFPAY | PROVIDERS: PCP Internal Medicine; Visit Provider Internal Medicine Nephrology ==

== ENCOUNTER 2025-05-26 16:11 | Outpatient (REF) | payer OTHER, SELFPAY ==
--- OUTSIDE RECORDS SUMMARY | 2025-05-26 17:00 | XMS_ITS | Clinical Summary ---
Author Organization [facility] Address [address] [facility] [address] [place] [address] Phone Care Team Providers Care Sales And Marketing Executive Name Role Phone Eva Reardon MD Primary [...] Cancer Screening: Sigmoidoscopy 2015 Influenza Vaccine (#1) 2025 09/15/2021, 2019 Insurance [facility] Care Teams Sales And Marketing Executive Relationship Specialty Start Date End Date Eva Reardon MD PCP - General 08/11/22
--- OUTSIDE RECORDS SUMMARY | 2025-05-26 17:00 | XMS_ITS | Patient Health Record ---
Author Organization [facility] Address [address] [place] [address] Care Team Providers Care Boarding House Cook Name Role Phone Eva Chen Primary Care Provider Unava Gonzales Meier Unavailable [phone] Allergies Allergen (clinical drug ingredient) Drug/Non Drug [...] spray in each nostril Nasally twice a day; Duration: 30 day(s) Not-Taking Fluticasone Propionate 50 MCG/ACT SPRAY 2 SPRAYS INTO EACH NOSTRIL EVERY DAY Nasal; Duration: 30 nasal spary Active hydroCHLOROthiazide 25 MG 1 tablet Orall y Once a day; Duration: 30 day(s) Not-Taking Eliquis 5 MG Orally [...] directed over swollen feet and legs as directed; Duration: . Active Voltaren 1 % as directed Externally Active Simvastatin 20 MG as directed Orally Once a day 08/30/2016 Active Trifluridine 1 % INSTILL 1 DROP INTO THE RIGHT EYE 8 TIMES A DAY Ophthalmic; Duration: 30 Not-Taking Spironolactone 25 MG 0.5 tablet Orally Once a day Active Nitrofurantoin Macrocrystal 100 MG TAKE 1 CAPSULE BY MOUTH 4 TIMES DAILY FOR 7 DAYS Oral; Duration: 7 Not-Taking Immunizations Vaccine Route Administration Date [...] Problem Status W/U Status Risk Notes Problem Hallux valgus (acquired), left foot (M20.12) Active confirmed Problem Localized, primary osteoarthritis of the ankle and/or foot (891594384) Primary osteoarthrit is, left ankle and foot (M19.072) Active confirmed Problem Acquired hallux valgus (68151905) Hallux valgus (acquired), right foot (M20.11) Active confirmed Plan Of Treatment Pending Test Test Name Order Date X ray : Foot, right 2V 08/30/2016 X ray : Foot, left 3V 09/19/2023 X ray : Foot, right 3V 05/26/2022 X ray : Foot, right 3V 09/19/2023 [id number] Destruction, 1-14 08/30/2016 32956-Chow Destruction, -05/28/2013 86834-Sbte Destruction, -07/04/2013 68692, J0702- INJECT or DRAIN, JOINT/BUR SA 09/19/2023, [id number]-[id number]/INJECT, JOINT/BURSA 1 11/19/2022, Q2218-RFZPG/INJECT, JOINT/BURSA 0 05/26/2022, T5016-APGVA/INJECT, JOINT/BURSA 0 07/06/2022 Insurance Providers Payer Name Payer Address Payer Phone Subscriber Number Group Number Insured Name Patient Relationship to Insured Coverage Start Date Coverage End Date [facility] [address] [place] [address] [id number] Kristine Freitas Self - patient is the [...]
--- OUTSIDE RECORDS SUMMARY | 2025-05-26 17:00 | XMS_ITS | Clinical Summary ---
Author Organization [address] Address [address] [place] [address] Phone Care Team Providers Care Traveling Passenger Agent Name Role Phone Pennie Souza MD Primary Care Provider +1- [phone] Allergies Active Allergy Reactions Criticality Noted Date [...] 89 01/19/2020 4:39 PM EDT Temperature 36.2 C (97.1 F) 01/19/2020 2:53 PM EDT Respiratory Rate 16 01/19/2020 4:39 PM EDT [...] patient's age to complete this topic Insurance [email or web address] Care Teams Traveling Passenger Agent Relationship Specialty Start Date End Date Pennie Souza MD PCP - General Internal Medicine 01/19/20
--- OUTSIDE RECORDS SUMMARY | 2025-05-26 17:00 | XMS_ITS | Patient Health Record ---
Author Organization [facility] [address] [address] Address [address] [place] [address] Care Team Providers Care Robotic Toy Inventor Name Role Phone KARINA BRODERICK Unavailable [phone] Allergies Allergen (clinical drug ingredient) Drug/Non Drug [...] Problem Status W/U Status Risk Notes Problem Obesity due to exces s calories (377479950) Other obesity due to excess calories (E66.09) Active confirmed Problem Essential hypertension (55068631) Essential (primary) hypertension (I10) Active confirmed Problem Coarctation of aorta (2382196) Coarctation of aorta (Q25.1) Active confirmed Problem Pure hypercholesterolemia (802639968) Pure hypercholesterolemia (E78.00) Active confirmed Problem Body mass index 35.0 0 to 39.99 (754948594159262) Body mass index [BMI] 37.0-37.9, adult (Z68.37) Active confirmed Problem Atrial fibrillation (53934591) PAF (paroxysmal atrial fibrillation) (I48.0) Active confirmed Plan Of Treatment No Information Insurance Providers Payer Name Payer Address Payer Phone Subscriber Number Group Number Insured Name Patient Relationship to Insured Coverage Start Date Coverage End Date [facility] [address] [place] [address] [id number] MILAN CLARK Self - patient is the insured Medical (General) History Medical History History ICD Code high blood pressure high cholesterol hemorrhoids anemia kidney disease anxiety depression seasonal allergies Surgical History Surgery Date(Month/Year) patent ductus arterialosos 09/1967 coarctation of aorta 08/1974 angioplasty 12/1985
[2025-05-26 17:58] LABS: Anion Gap 10 (12-20); Blood Urea Nitrogen 37 mg/dL (9-16); Carbon Dioxide 28 mmol/L (22-29); Chloride 105 mmol/L (96-108); Estimated Glomerular Filt Rate 39; Potassium 4.2 mmol/L (3.3-5.1); Sodium 139 mmol/L (135-145)
== END 2025-05-26 16:12 | disposition home or self-care (01) ==
LOC: HO.LAB 16:11
PROVIDERS: PCP Internal Medicine; Visit Provider Internal Medicine Nephrology
DX: I12.9 Hypertensive chronic kidney disease with stage 1 through stage 4 chronic kidney disease, or unspecified chronic kidney disease (principal); N18.31 Chronic kidney disease, stage 3a
CPT/HCPCS: 36415; 80051; 82565; 84520

== ENCOUNTER 2025-05-29 10:17 | Outpatient (AMB) | payer OTHER, SELFPAY ==
--- NOTE | 2025-05-29 10:26 | HO.NEPHOV ---
Vital Signs 05/29/25 10:32 Height 5 ft 5 in Weight 212 lb 4 oz BMI 35.3 BP 140/60 H Blood Pressure Location Lt brachial Position Sitting Pulse 67 Pulse Source Pulse Oximeter Pulse Oximetry (%) 99 Oxygen Delivery Method Room Air Intake Visit Reasons: 1m follow up-[facility] Automotive Glazier Required: No Accompanied by: Self / Same As Patient Allergies ciprofloxacin (From CIPRO) Allergy (Unknown, Verified 05/29/25 10:31) NAUSEA clarithromycin (From BIAXIN) Allergy (Unknown, Verified 05/29/25 10:31) SWELLING, HIVES Penicillins (PCN) Allergy (Unknown, Verified 05/29/25 10:31) HIVES sulfamethoxazole (From BACTRIM) Allergy (Unknown, Verified 05/29/25 10:31) HIVES trimethoprim (From BACTRIM) Allergy (Unknown, Verified 05/29/25 10:31) HIVES Medication List - Last Reconciled 05/29/25 by Sacha Malik MD apixaban (Eliquis) 5 mg PO BID calcium citrate-vitamin D2 250 mg-2.5 mcg (100 unit) (Grady-Citrate) 2 tabs PO BID cholecalciferol (vitamin D3) 50 mcg PO DAILY diltiazem HCl ER (Tiadylt ER) 180 mg PO DAILY ferrous sulfate 325 mg PO BID fluticasone propionate 50 mcg/actuation 1 inh inhalation DAILY furosemide 20 mg PO DAILY lisinopril 10 mg PO QPM lisinopril 5 mg (2 x 2.5 mg) PO QAM 90 days pantoprazole 20 mg PO Q OTHER DAY sertraline 200 mg PO DAILY simvastatin 20 mg PO BEDTIME HPI Comments Details: Kristine was seen in follow-up of her chronic kidney disease and hypertension. She follows with Dr Isaac . She has history of coarctation of aorta. She has history of 2 episodes of COVID . She has not had any further recent atrial fibrillation. She does not take any nonsteroidal anti-inflammatories. Kristine has not tolerated beta paulino in the past & could not tolerate the spironolactone in the past due to hyperkalemia. Her stress test was negative in the past. She uses CPAP. She has no history of proteinuria. Doppler of her renal arteries did not show any critical renal artery stenosis in the past. Her renal functions continue to remain stable. [facility] Medical History Coarctation of aorta PDA (patent ductus arteriosus) Hypertension CKD (chronic kidney disease) stage 3, GFR 30-59 ml/min Surgical History S/P ablation of atrial fibrillation H/O section History of foot surgery H/O angioplasty Family History Brother Diabetes Father Hypertension Mother Hypertension Stroke Social History Alcohol intake: never Patient Tobacco Use Status: Never used Tobacco Review of Systems Const All systems reviewed & are unremarkable except as noted in HPI and below Physical Exam Vital Signs: Last Vital Signs Pulse 67 05/29/25 10:32 BP 140/60 H 05/29/25 10:32 Pulse Ox 99 05/29/25 10:32 Oxygen Delivery Method Room Air 05/29/25 10:32 BMI result Body Mass Index 35.3 Const General: comfortable and no acute distress Orientation/consciousness: patient oriented x3 HEENT Head: Yes normocephalic Mouth: Normal oral and palatal mucosa present Eyes EOM: EOMs intact bilaterally Neck Neck: Yes supple Resp Auscultation: clear to auscultation bilaterally Cardio Jugular venous distension: no JVD Rate: regular rate GI Palpation (GI): Soft to palpation Auscultation: normal bowel sounds General: Yes no CVA tenderness Back/Spine/Pelvis Back: no CVA tenderness Skin General skin exam: no rashes or lesions noted Neuro General: patient oriented x3 and moves all extremities Extrem General: Yes no pedal edema Results Reviewed Nephrology Results: Hgb, (12.0-16.0) 11.6 g/dl L 04/01/25 WBC, (4.8-10.8) 6.8 X10*3/uL 04/01/25 Plt Count, (160-400) 213 X10*3/uL 04/01/25 Sodium, (135-145) 139 mmol/L 05/26/25 Potassium, (3.3-5.1) 4.2 mmol/L 05/26/25 Chloride, (96-108) 105 mmol/L 05/26/25 Carbon Dioxide, (22-29) 28 mmol/L 05/26/25 BUN, (9-16) 37 mg/dL H 05/26/25 Creatinine, (0.5-1.4) 1.38 mg/dL 05/26/25 Calcium, (8.4-10.2) 9.4 mg/dL 04/01/25 Urine Protein, (Neg-Trace) Negative mg/dL 04/01/25 Urine Creatinine 132.91 mg/dL 04/01/25 Protein/Creatinin Ratio, (<0.2) 0.06 04/01/25 Assessment & Plan Assessment & Plan (1) CKD (chronic kidney disease) stage 3, GFR 30-59 ml/min: Code(s): N18.30 - Chronic kidney disease, stage 3 unspecified Category: Medical Qualifiers: Chronic kidney disease stage 3 subtype: stage 3a (GFR 45-59) Qualified Code(s): N18.31 - Chronic kidney disease, stage 3a (2) Hypertension: Code(s): I10 - Essential (primary) hypertension Category: Medical Qualifiers: Hypertension type: renovascular hypertension Qualified Code(s): I15.0 - Renovascular hypertension Plan Kristine has CKD 3 A and her renal functions are stable. Her last ECHO is essentially unchanged but has features of diastolic dysfunction. She has CKD stage 3 due to vascular disease. Her volume status is optimal. She is watching her blood sugars closely. She is on lisinopril which I may need to change to ARB if she has symptoms of joint pains( which she thinks is co relating with increase in dosage). She may be a candidate for Jardiance or Farxiga in the future. She avoids nonsteroidal anti-inflammatories. She will benefit from weight loss. I did not make any other medication changes today. Follow-up blood work ordered.Answered all questions Orders: Orders Electrolytes 8 Weeks I15.0 - Renovascular hypertension, N18.31 - Chronic kidney disease, stage 3a Blood Urea Nitrogen 8 Weeks I15.0 - Renovascular hypertension, N18.31 - Chronic kidney disease, stage 3a Creatinine 8 Weeks I15.0 - Renovascular hypertension, N18.31 - Chronic kidney disease, stage 3a Medications: Changed From furosemide 20 mg PO DAILY To furosemide 20 mg PO DAILY 90 tabs 3RF 90 days Coding Level of Care Code Est Pt Level 4 (62204) Diagnoses Stage 3a chronic kidney disease N18.31 Chronic kidney disease stage 3 subtype: stage 3a (GFR 45-59) Renovascular hypertension I15.0 Hypertension type: renovascular hypertension
[2025-05-29 10:32] VITALS: BP 140/60; PULSE 67; O2SAT 99; BMI 35.3
--- OUTSIDE RECORDS SUMMARY | 2025-05-29 10:46 | XMS_ITS | Clinical Summary ---
Author Organization [facility] Address [address] [facility] [address] [place] [address] Phone Care Team Providers Care Ironworker Apprentice Shop Name Role Phone Eva Reardon MD Primary [...] Influenza Vaccine (#1) 2025 09/15/2021, 2019 Insurance [facility] Care Teams Ironworker Apprentice Shop Relationship Specialty Start Date End Date Eva Reardon MD PCP - General 08/11/22
--- OUTSIDE RECORDS SUMMARY | 2025-05-29 10:46 | XMS_ITS | Patient Health Record ---
Author Organization [facility] [address] Address [address] [place] [address] Care Team Providers Care Studio Director Name Role Phone KARINA BRODERICK Unavailable [phone] Allergies Allergen (clinical drug ingredient) Drug/Non Drug [...] Problem Obesity due to exces s calories (799027751) Other obesity due to excess calories (E66.09) Active confirmed Problem Essential hypertension (27464357) Essential (primary) hypertension (I10) Active confirmed Problem Coarctation of aorta (4554977) Coarctation of aorta (Q25.1) Active confirmed Problem Pure hypercholesterolemia (680614120) Pure hypercholesterolemia (E78.00) Active confirmed Problem Body mass index 35.0 0 to 39.99 (815253152517601) Body mass index [BMI] 37.0-37.9, adult (Z68.37) Active confirmed Problem Atrial fibrillation (38122469) PAF (paroxysmal atrial fibrillation) (I48.0) Active confirmed Plan Of Treatment No Information Insurance Providers Payer Name Payer Address Payer Phone Subscriber Number Group Number Insured Name Patient Relationship to Insured Coverage Start Date Coverage End Date [facility] [address] [place] [address] [id number] MILAN CLARK Self - patient is the insured Medical (General) History Medical History History ICD Code high blood pressure high cholesterol hemorrhoids anemia kidney disease anxiety depression seasonal allergies Surgical History Surgery Date(Month/Year) patent ductus arterialosos 09/1967 coarctation of aorta 08/1974 angioplasty 12/1985
--- OUTSIDE RECORDS SUMMARY | 2025-05-29 10:46 | XMS_ITS | Encounter Summary ---
Author Organization [facility] Address [address] [place] [address] Care Team Providers Care Director Business Management Name Role Phone Eva Watson MD Primary Care Prov ider Reason for Visit * Reason Onset Date Comments lab orders 05/26/2025 Encounter Details Date Type Department Care Team ([facility] st Contact Info) Description 05/26/2025 Telephone Adult Medicine [address] [address] Eva Watson MD [address] [place] [id number] lab orders Social History Tobacco Use Types Packs/Day Years [...] for your loved ones. For example, children's program coordinator or elderly care for an older adult? [...] as of this encounter Progress Notes * Louann Morin MA - 05/27/2025 10:54 AM EDT Patient was informed about labs orders * YUKI Levi - 05/27/2025 10:32 AM EDT Orders changed please let her know the labs cannot be reviewed with PCP until her appointment * Solomon Kilpatrick MA - 05/27/2025 10:23 AM EDT Called pt to make aware, she was upset that appt was cancelled and she was not aware. Melissa found a sooner apt and pt is asking the labs be ordered before the appt as she has to see nephro. Please review and advise. Asking labs be ordered by tomorrow. * YUKI Levi - 05/27/2025 8:59 AM EDT Fasting labs ordered. She may come to the lab after 07/14/2025 to have these completed fasting. * Joleen Reagan MA - 05/27/2025 8:53 AM EDT Please review and advise. * Carla Murphy - 05/26/2025 10:09 AM EDT Patient is requesting all routine labs to be ordered for her appt with Laurence Dempsey on 07/29/25. Pleasecall her once orders have been put in documented in this encounter Plan of Treatment Upcoming Encounters Date Type Department Care Team (Late st Contact Info) Description 06/10/2025 1:30 PM EDT Office Visit Adult Medicine [address] [address] Eva Watson MD [address] [place] [address] 07/01/2025 10:30 AM EDT Office Visit Pulmonolgy - [place] [address] [phone] Ana Isaac MD [address] [address] 07/21/2025 4:00 PM EDT Appointment Radiology Department - [address] [address] documented as of this encounter Results * (ABNORMAL) Comprehensive metabolic panel (05/28/2025 8:15 AM EDT) Sodium 139 133 - 145 mmol/L LAB CHEMISTRY METHOD 05/28/2025 11:15 AM [facility] Potassium 4.2 3.5 - 5.5 mmol/L LAB CHEMISTRY METHOD 05/28/2025 11:15 AM [facility] Chloride 106 96 - 110 mmol/L LAB CHEMISTRY METHOD 05/28/2025 11:15 AM [facility] CO2 29 21 - 32 mmol/L LAB CHEMISTRY METHOD 05/28/2025 11:15 AM [facility] Anion Gap 4 3 - 11 LAB CHEMISTRY METHOD 05/28/2025 11:15 AM [facility] Glucose 99 70 - 100 mg/dL LAB CHEMISTRY METHOD 05/28/2025 11:15 AM [facility] BUN 33(H) 5 - 25 mg/dL LAB CHEMISTRY METHOD 05/28/2025 11:15 AM [facility] Creatinine 1.40(H) 0.50 - 1.10 mg/dL LAB CHEMISTRY METHOD 05/28/2025 11:15 AM [facility] eGFR 44(L) >=60 mL/min/1. 73m2 LAB CHEMISTRY METHOD 05/28/2025 11:15 AM [facility] Comment:Calculation based on the Chronic Kidney Disease Epidemiology Collaboration (CKD-EPI) equation refit without adjustment for race. BUN/Creatinine Ratio 23.6 LAB CHEMISTRY METHOD 05/28/2025 11:15 AM [facility] Calcium 9.0 8.5 - 10.5 mg/dL LAB CHEMISTRY METHOD 05/28/2025 11:15 AM [facility] AST (SGOT) 18 10 - 42 unit/L LAB CHEMISTRY METHOD 05/28/2025 11:15 AM [facility] ALT (SGPT) 21 10 - 60 unit/L LAB CHEMISTRY METHOD 05/28/2025 11:15 AM [facility] Alkaline Phosphatase 97 42 - 121 unit/L LAB CHEMISTRY METHOD 05/28/2025 11:15 AM [facility] Total Protein 6.8 6.0 - 8.0 g/dL LAB CHEMISTRY METHOD 05/28/2025 11:15 AM [facility] Albumin 3.9 3.2 - 5.0 g/dL LAB CHEMISTRY METHOD 05/28/2025 11:15 AM [facility] Total Bilirubin 0.5 0.0 - 1.4 mg/dL LAB CHEMISTRY METHOD 05/28/2025 11:15 AM [facility] Blood Venous blood specimen / Unknown Venipuncture / Unknown 05/28/2025 8:15 AM EDT 05/28/2025 8:15 AM EDT us Ana MIRZA LAB BLOOD ORDERABLES Final Resu lt [facility] [address] [place] [address], * (ABNORMAL) Lipid panel with reflex to direct LDL (05/28/2025 8:15 AM EDT) Cholesterol 199 0 - 200 mg/dL LAB CHEMISTRY METHOD 05/28/2025 11:15 AM EDT [facility] Triglycerides 111 0 - 150 mg/dL LAB CHEMISTRY METHOD 05/28/2025 11:15 AM EDT [facility] HDL 64 >=40 mg/dL LAB CHEMISTRY METHOD 05/28/2025 11:15 AM EDT [facility] LDL Calculated 113(H) 0 - 100 mg/dL LAB CHEMISTRY METHOD 05/28/2025 11:15 AM EDT [facility] VLDL Cholesterol Grady 22.2 mg/dL LAB CHEMISTRY METHOD 05/28/2025 11:15 AM EDT [facility] Non HDL Chol. (LDL+VLDL) 135 <145 mg/dL LAB CHEMISTRY METHOD 05/28/2025 11:15 AM T [facility] Chol/HDL Ratio 3.1 0.0 - 4.4 LAB CHEMISTRY METHOD 05/28/2025 11:15 AM T [facility] Blood Venous blood specimen / Unknown Venipuncture / Unknown 05/28/2025 8:15 AM EDT 05/28/2025 8:15 AM EDT us Ana MIRZA LAB BLOOD ORDERABLES Final Resu lt [facility] [address] [place] [address], documented in this encounter Visit Diagnoses Diagnosis Screening for cardiovascular condition- Primary Screening for other and unspecified cardiovascular conditions Encounter for screening mammogram for breast cancer documented in this encounter Additional Health Concerns Assessment Noted Time PHQ-9 Depression Total Score: 0 12/01/19 25 6:33 PM EST documented as of this encounter Care Teams Director Business Management Relationship Specialty Start Date End Date Eva Watson MD [address] [place] [phone] PCP - General Internal Medicine 06/13/22 documented as of this encounter
--- OUTSIDE RECORDS SUMMARY | 2025-05-29 10:47 | XMS_ITS | Clinical Summary ---
Author Organization [address] Address [address] [place] [phone] Phone Care Team Providers Care Deburring Machine Operator Name Role Phone Pennie Souza MD Primary Care Provider +1- [phone] Allergies Active Allergy Reactions Criticality Noted Date [...] patient's age to complete this topic Insurance [email or web address] Care Teams Deburring Machine Operator Relationship Specialty Start Date End Date Pennie Souza MD PCP - General Internal Medicine 01/19/20
--- OUTSIDE RECORDS SUMMARY | 2025-05-29 10:47 | XMS_ITS | Patient Health Record ---
Author Organization [facility] Address [address] [place] [address] Care Team Providers Care Medical Claims Assistant Name Role Phone Eva Chen Primary Care Provider Unava Gonzales Meier Unavailable [phone] Allergies Allergen (clinical drug ingredient) Drug/Non Drug [...] Status Risk Notes Problem Acquired hallux valgus (27145536) Hallux valgus (acquired), left foot (M20.12) Active confirmed Problem Primary osteoarthriti s, left ankle and foot (M19.072) Active confirmed Problem Acquired hallux valgus (21562767) Hallux valgus (acquired), right foot (M20.11) Active confirmed Plan Of Treatment Pending Test Test Name Order Date X ray : Foot, right 2V 08/30/2016 X ray : Foot, left 3V 09/19/2023 X ray : Foot, right 3V 05/26/2022 X ray : Foot, right 3V 09/19/2023 [id number] Destruction, -08/30/2016 76154-Grlx Destruction, -05/28/2013 78058-Vjmf Destruction, -07/04/2013 69723, J0702- INJECT or DRAIN, JOINT/BUR SA 09/19/2023, [id number]/INJECT, JOINT/BURSA 1 11/19/2022, [id number]-BJEFN/INJECT, JOINT/BURSA 0 05/26/2022, [id number]-DKZID/INJECT, JOINT/BURSA 0 07/06/2022 Insurance Providers Payer Name Payer Address Payer Phone Subscriber Number Group Number Insured Name Patient Relationship to Insured Coverage Start Date Coverage End Date [facility] [address] [place] [address] [id number] Kristine Freitas Self - patient is the [...]
== END 2025-05-29 11:00 | disposition home or self-care (01) ==
LOC: HO.HKAS 10:17
PROVIDERS: PCP Internal Medicine; Visit Provider Internal Medicine Nephrology
DX: N18.31 Chronic kidney disease, stage 3a (principal); I15.0 Renovascular hypertension
CPT/HCPCS: 99214

== ENCOUNTER 2025-07-30 15:44 | Outpatient (REF) | payer OTHER, SELFPAY ==
[2025-07-30 17:13] LABS: Anion Gap 11 (12-20); Blood Urea Nitrogen 43 mg/dL (9-16); Carbon Dioxide 30 mmol/L (22-29); Chloride 102 mmol/L (96-108); Estimated Glomerular Filt Rate 42; Potassium 4.3 mmol/L (3.3-5.1); Sodium 139 mmol/L (135-145)
--- OUTSIDE RECORDS SUMMARY | 2025-07-30 19:03 | XMS_ITS ---
Author Name [facility] Organization Unknown Care Team Organization Name Specialty Phone Email Start Date End Da te [facility] Eva Reardon Primary Care 10/25/2023 07/01/2024 [facility] Jg Cevallos Primary Care 07/20/202306/13 [facility] Ana Dempsey Primary Care 09/20/20222023
--- OUTSIDE RECORDS SUMMARY | 2025-07-30 19:03 | XMS_ITS | Encounter Summary ---
Author Organization [facility] Address [address] [place] [address] Phone Care Team Providers Care Flight Operations Engineer Name Role Phone Eva Reardon MD Primary Care Provider + Encounter Details Date Type Department Care Team (Late st Contact Info) Description 04/26/2022 Telephone [facility] [address] [place] [address] Sacha Malik MD Social History [...] on filedocumented in this encounter Care Teams Flight Operations Engineer Relationship Specialty Start Date End Date Eva Reardon MD PCP - General 08/11/22 documented as of this encounter
--- OUTSIDE RECORDS SUMMARY | 2025-07-30 19:03 | XMS_ITS | Clinical Summary ---
Author Organization 175 [facility] Address [address] [place] [address] Phone Care Team Providers Care [employer] Name Role Phone Eva Watson MD Primary [...] by mouth 2 (two) times a day. Q other day Active simvastatin (ZOCOR) 20 mg tablet Take 1 tablet (20 mg total) by mouth. 02/10/20 23 Active furosemide (LASIX) 20 mg tablet Take 1 tablet (20 mg total) by mouth 1 (one) time each day. Active ferrous sulfate 325 mg (65 mg iron) EC tablet Take 1 tablet (325 mg total) by mouth 2 (two) times a day. Do not crush, chew, or split. Active lisinopriL (PRINIVIL,ZEST RIL) 2.5 mg tablet Take 1 tablet (2.5 mg total) by mouth 2 (two) times a day. 12/02/19 25 Active azithromycin (ZITHROMAX) 250 mg tablet Take 2 tabs on day one and then 1 tab for the next 4 days 6 tablet 12/26/19 25 Active Additional Information Patient not taking.Reported on 06/10/2025 fluticasone propionate (FLONASE) 50 mcg/actuation nasal spray USE 2 SPRAYS INTO EACH NOSTRIL ONCE DAILY 16 mL 1 01/15/20 25 Active lisinopriL (PRINIVIL,ZEST RIL) 10 mg tablet Take 1 tablet (10 mg total) by mouth 1 (one) time each day. Take in the pm Active sertraline (ZOLOFT) 100 mg tablet TAKE 2 TABLETS BY MOUTH EVERY DAY 180 tablet 1 07/09/20 25 Active sertraline (ZOLOFT) 100 mg tablet Take 2 tablets (200 mg total) by mouth 1 (one) time each day. 180 each 3 12/02/19 25 025 Discontinued Active Problems Problem Noted [...] monitor. Obstructive sleep apnea 11/15/2020 Overview (12/27/2023): [facility] sleep medicine. Rec AU[place]AP 8-15 [place] [facility] [place]: Date 10/28/2020; Wt 209#; BMI 35; [...] schedule US. Lone atrial fibrillation (CMS/HCC V24, CMS/HCC V 28) 12/28/2017 Assessment & Plan (12/02/2024 4:04 PM EST): Currently asymptomatic. Follows with cardiology. Takes Apixaban 5mg day. Continue same medication. CKD (chronic kidney disease) , stage III (CMS/HCC V24, CMS/[facility] V28) 12/28/2017 HSV (herpes simplex virus) infection 08/11/2016 Cervical spondylosis with radiculopathy 07/26/20 16 Mild anemia 05/28/2015 Hyperlipidemia with target LDL less than 130 12/2012 Overview (12/27/2023): IMO update Assessment & Plan (06/10/2025 3:30 PM EDT): Currently on Simvastatin, will continue same medication. Assessment & Plan (12/02/2024 4:04 PM EST): Last LDL 102. Takes Simvastatin 20mg day. Continue same regimen. Allergic rhinitis 11/15/2007 Essential hypertension, benign 09/29/2005 Assessment & Plan (06/10/2025 3:30 PM EDT): Mildly elevated, she is currently on diltiazem, lisinopril, she will follow-up with her kidney doctor in 2 months. 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 Assessment & Plan (12/02/2024 4:04 PM EST): Well controlled. Currently on Lisinopril 12.5 mg a day, furosemide 20mg day. Follows regularly with nephrology. Will continue same regimen. Recommended a low salt diet and regular exercise. Coarctation of aorta (preductal) (postductal) Overview (12/27/2023): 1967 PDA 1973: Coarctation surgery 1986: Angioplasty 2004: Cardiac Cath Encounters Date Type Department Care Team Description 07/21/2025 3:33 PM EDT - 07/21/2025 11:59 PM EDT Hospital Encounter Radiology Department - [address] [address] Encounter for screening mammogram for breast cancer Discharge Disposition: Home or Self Care 06/10/2025 1:30 PM EDT Office Visit [facility] Medicine [address] [phone] Eva Gonzalez MD Adult general medical examination (Primary Dx); Essential hypertension, benign; Mixed hyperlipidemia 05/26/2025 Telephone Adult [id number] [place], [place] [phone] Eva Gonzalez MD from Last 3 Months Immunizations Name Administration Dates Next Due Influenza Quadravalent, MDCK , 0.5ml, preservative free (Flucelvax) 6mo and older 09/15/2021,10/07/2020 Td Tetanus diptheria (Tdvax) 7yo and older 05/22 Tdap Tetanus diptheria acell ular pertussis (Boostrix; Adacel) 7yo and older 05/02/2016 Surgical History Surgery Date Site/Laterality Comments BUNIONECTOMY 1993 PROCEDURE: [place] CORRJ HLX VLGS BNCTY SESMDC W/DOUBLE OSTEOTOMY; COMMENT: right foot SECTION PROCEDURE: [place] DELIVERY ONLY; COMMENT: x2 CARDIAC CATHETERIZATION 2003 PROCEDURE: HISTORICAL CARDIAC CATH OTHER SURGICAL HISTORY 1966 PROCEDURE: [place] REPAIR PATENT DUCTUS ARTERIOSUS LIGATION OTHER SURGICAL [...] Alive 8 - PDA Father (Age 50) [place] with hy pertension; hypercholesterolemia Maternal Grandfather (Age [...] for your loved ones. For example, children's literature professor or elderly care for an older [...] Multiple Livin g Live Births 3 2 2 2 2 Date Outcome GA Total Labor Labor/2nd/3rd Weight Sex Type Anes PTL Karine A1 A5 Name Clin Term Term Last Filed Vital Signs Vital Sign Reading Time Taken Comments Blood Pressure 148/74 06/10/2025 1:46 PM EDT Pulse 76 06/10/2025 1:46 PM EDT Temperature 36.6 C (97.9 F) 06/10/2025 1:45 PM EDT Respiratory Rate 16 06/10/2025 1:45 PM EDT Oxygen Saturation 97% 12/06/2024 3:30 PM EST Inhaled Oxygen Concentration - - Weight 95.3 kg (210 lb) 06/10/2025 1:45 PM EDT Height 165.1 cm (5' 5 ) 06/10/2025 1:45 PM EDT Body Mass Index 34.95 06/10/2025 1:45 PM EDT Plan of Treatment Upcoming Encounters Date Type Department Care Team (Late st Contact Info) Description 06/12/2026 2:00 PM EDT Office Visit Adult Medicine [address] [phone] Eva Watson MD [address] [place] [address] Health Maintenance Due Date Last Done Comments COVID-19 Vaccine ( season) 2025 09/16/2022, 12/10/2021, 02/18/2021, Additional history exists Social Influencers of Health Screening 12/01/2025 12/01/2024 Cervical Cancer Screening: HPV 12/15/2025 12/15/2020 Colorectal Cancer Screening: Colonoscopy 01/01/2026 01/01/2021 DTaP,Tdap,and Td Vaccines (3 - Td or Tdap) 05/02/2026 05/02/2016, 05/22/2006 Hypertension/CHF/CAD Annual BMP Blood Test 05/28/2026 05/28/2025, 05/24/2024, 05/24/2024 Breast Cancer Screening 07/21/2026 07/21/20, 07/13/2024, 07/13/2024, Additional history exists Cholesterol Screening (Lipid Panel) 05/28/2030 05/28/2025, 05/24/2024, 05/24/2024 Osteoporosis Screening (Bone Density Screening) 08/03/2038 08/03/2023, 08/03/2023, 10/02/2019 Influenza Vaccine Discontinued 09/15/2021, 10/07/2020 Hepatitis C Screening Completed 09/26/2022 Depression Screening Completed 12/01/2024 HIB Vaccines Aged Out No longer eligi ble based on patient's age to complete this topic HIV Screening Discontinued HPV Vaccines Aged Out No longer eligi ble based on patient's age to complete this topic Hepatitis A Vaccines Aged Out No long er eligible based on patient's age to complete this topic Hepatitis B Vaccines Discontinued IPV Vaccines Aged Out No longer eligi [...] on patient's age to complete this topic Pneumococcal Vaccine: 50+ Years Discontinued RSV Immunization Patients Under 20 months Aged Out No longer eligible based on patient's age to complete this topic Varicella Vaccines Aged Out No longer eligible based on patient's age to complete this topic Zoster Vaccines Discontinued Procedures Procedure Name Priority Date/Time Associated Diagnosis Comments MG MAMMO DIGITAL SCREENING W JOSE BILAT Routine 07/21/2025 3:49 PM EDT Encounter for screening mammogram for breast cancer CBC WITH AUTO DIFFERENTIAL Routine 05/28/2025 8:15 AM EDT Screening for cardiovascular condition LIPID PANEL WITH REFLEX TO DIRECT LDL Routine 05/28/2025 8:15 AM EDT Screening for cardiovascular condition COMPREHENSIVE METABOLIC PANEL Routine 05/28/2025 8:15 AM EDT Screening for cardiovascular condition CBC AND DIFFERENTIAL Routine 05/28/2025 8:15 AM EDT Screening for cardiovascular condition ..LAB TO CALL RESULTS Routine 05/26/2025 3:33 PM EDT DEXA SCAN Routine 08/03/2023 HM HEPATITIS C SCREENING Routine 09/26/2022 COLONOSCOPY Routine 01/01/2021 HM HPV Routine 12/15/2020 from Last 3 Months or Most Recently Relevant to Health Maintenance Results * MG Mammo Digital Screening w Jose bilat (07/21/2025 3:49 PM EDT) Anatomical Region Laterality Modality Breast Bilateral Mammography 07/23/2025 1:10 PM EDT Impressions 07/23/2025 1:12 PM EDT No mammographic evidence of malignancy. BREAST DENSITY: C - The breasts are heterogeneously dense which may obscure small masses. BI-RADS CATEGORY: 1 - NEGATIVE RECOMMENDATION: Screening bilateral mammogram is recommended in 1 year. MAMMO LOCATION: [facility], [address] [place] [address], [id number], . -------- FINAL REPORT -------- Dictated By: Alis Mcdonald Dictated Date: 07/23/2025 13:10 ET Assigned Physician: Alis Mcdonald Reviewed and Electronically Signed By: Alis Mcdonald Signed Date: 07/23/2025 13:12 ET Workstation ID: [id number] Transcribed By: Self Edit Transcribed Date: 07/23/2025 13:10 ET Narrative 07/23/2025 1:12 PM EDT EXAM: Screening Mammogram CLINICAL: 59 years old, Female, routine annual exam. History of a benign left ultrasound-guided core biopsy on 09/29/2021. COMPARISON: 07/13/2024 and as far back as 07/26/2021 TECHNIQUE: Bilateral MLO and CC views were obtained digitally with 3-D mammogram (digital breast tomosynthesis). Computer-aided detection was utilized in evaluation of this exam (CAD). FINDINGS: No new suspicious mass, architectural distortion, or suspicious calcifications. Biopsy clip again noted in the lower inner left breast. Procedure Note Alis Mcdonald MD - 07/23/2025 EXAM: Screening Mammogram CLINICAL: 59 years old, Female, routine annual exam. History of a benignleft ultrasound-guided core biopsy on 09/29/2021. COMPARISON: 07/13/2024 and as far back as 07/26/2021 TECHNIQUE: Bilateral MLO and CC views were obtained digitally with 3-Dmammogram (digital breast tomosynthesis). Computer-aided detection wasutilized in evaluation of this exam (CAD). FINDINGS: No new suspicious mass, architectural distortion, or suspiciouscalcifications. Biopsy clip again noted in the lower inner left breast. IMPRESSION: No mammographic evidence of malignancy. BREAST DENSITY: C - The breasts are heterogeneously dense which mayobscure small masses. BI-RADS CATEGORY: 1 - NEGATIVE RECOMMENDATION: Screening bilateral mammogram is recommended in 1 year. MAMMO LOCATION: [facility], [address] [place] [address], [id number], . -------- FINAL REPORT -------- Dictated By: Alis Mcdonald Dictated Date: 07/23/2025 13:10 ET Assigned Physician: Alis Mcdonald Reviewed and Electronically Signed By: Alis Mcdonald Signed Date: 07/23/2025 13:12 ET Workstation ID: [id number] Transcribed By: Self Edit Transcribed Date: 07/23/2025 13:10 ET us Eva Watson MD IMG BI PROCEDURES Final Result * (ABNORMAL) Lipid panel with reflex to direct LDL (05/28/2025 8:15 AM EDT) Cholesterol 199 0 - 200 mg/dL LAB CHEMISTRY METHOD 05/28/2025 11:15 AM EDT [facility] Triglycerides 111 0 - 150 mg/dL LAB CHEMISTRY METHOD 05/28/2025 11:15 AM EDT [facility] HDL 64 >=40 mg/dL LAB CHEMISTRY METHOD 05/28/2025 11:15 AM EDT [facility] LDL Calculated 113(H) 0 - 100 mg/dL LAB CHEMISTRY METHOD 05/28/2025 11:15 AM EDT [facility] VLDL Cholesterol Grady 22.2 mg/dL LAB [facility]STR[facility] Non HDL Chol. (LDL+VLDL) 135 <145 mg/dL LAB CHEMISTRY METHOD 05/28/2025 11:15 AM EDT [facility] Chol/HDL Ratio 3.1 0.0 - 4.4 LAB CHEMISTRY METHOD 05/28/2025 11:15 AM T [facility] Blood Venous blood specimen / Unknown Venipuncture / Unknown 05/28/2025 8:15 AM EDT 05/28/2025 8:15 AM EDT us Aan MIRZA LAB BLOOD ORDERABLES Final Resu lt [facility] [address] [place] [address], * (ABNORMAL) CBC auto differential (05/28/2025 8:15 AM EDT) [facility] WBC 6.3 4.8 - 10.8 K/[facility] LAB HEMETOLOGY METHOD 05/28/2025 10:59 AM EDT [facility] RBC 3.80 3.80 - 4.80 M/[facility] LAB HEMETOLOGY METHOD 05/28/2025 10:59 AM EDT [facility] Hemoglobin 10.8(L) 11.5 - 16.0 g/dL LAB HEMETOLOGY METHOD 05/28/2025 10:59 AM T [facility] Hematocrit 33.4(L) 35.0 - 47.0 % LAB HEMETOLOGY METHOD 05/28/2025 10:59 AM [facility] MCV 87.9 79.0 - 98.0 FL LAB HEMETOLOGY METHOD 05/28/2025 10:59 AM EDT [facility] MCH 28.4 27.0 - 32.0 pcg LAB HEMETOLOGY METHOD 05/28/2025 10:59 AM [facility] MCHC 32.3 32.0 - 37.0 g/dL LAB HEMETOLOGY METHOD 05/28/2025 10:59 AM [facility] RDW 13.2 11.0 - 15.0 % LAB HEMETOLOGY METHOD 05/28/2025 10:59 AM [facility] Platelets 174 130 - 400 K/mcL LAB HEMETOLOGY METHOD 05/28/2025 10:59 AM [facility] MPV 11.7(H) 7.0 - 11.0 FL LAB HEMETOLOGY METHOD 05/28/2025 10:59 AM [facility] NRBC 0.0 <1.0 % LAB HEMETOLOGY METHOD 05/28/2025 10:59 AM [facility] NRBC Absolute 0.00 <0.10 K/mcL LAB HEMETOLOGY METHOD 05/28/2025 10:59 AM [facility] Neutrophils Relative 65.0 % LAB HEMETOLOGY METHOD 05/28/2025 10:59 AM [facility] Lymphocytes Relative 22.8 % LAB HEMETOLOGY METHOD 05/28/2025 10:59 AM [facility] Monocytes Relative 8.1 % LAB HEMETOLOGY METHOD 05/28/2025 10:59 AM EDT [facility] Eosinophils Relative 3.0 % LAB HEMETOLOGY METHOD 05/28/2025 10:59 AM EDT [facility] Basophils Relative 0.5 % LAB HEMETOLOGY METHOD 05/28/2025 10:59 AM EDT [facility] Immature Granulocytes Relative 0.6 % LAB HEMETOLOGY METHOD 05/28/2025 10:59 AM EDT [facility] Neutrophils Absolute 4.07 1.50 - 7.00 K/mcL LAB HEMETOLOGY METHOD 05/28/2025 10:59 AM EDT [facility] Lymphocytes Absolute 1.43 1.00 - 5.00 K/mcL LAB HEMETOLOGY METHOD 05/28/2025 10:59 AM EDT [facility] Monocytes Absolute 0.51 0.20 - 1.00 K/mcL LAB HEMETOLOGY METHOD 05/28/2025 10:59 AM EDT [facility] Eosinophils Absolute 0.19 0.00 - 0.50 K/mcL LAB HEMETOLOGY METHOD 05/28/2025 10:59 AM EDT [facility] Basophils Absolute 0.03 0.00 - 0.20 K/mcL LAB HEMETOLOGY METHOD 05/28/2025 10:59 AM EDT [facility] Immature Granulocytes Absolute 0.04(H) 0.00 - 0.03 K/mcL LAB HEMETOLOGY METHOD 05/28/2025 10:59 AM EDT [facility] Blood Venous blood specimen / Unknown Venipuncture / Unknown 05/28/2025 8:15 AM EDT 05/28/2025 8:15 AM EDT us Ana MIRZA LAB BLOOD ORDERABLES Final Resu lt [facility] [address] [place] [address], [place] [phone] * (ABNORMAL) Comprehensive metabolic panel (05/28/2025 8:15 AM EDT) [facility] Signature Sodium 139 133 - 145 mmol/L LAB CHEMISTRY METHOD 05/28/2025 11:15 AM [facility] Potassium 4.2 3.5 - 5.5 mmol/L LAB CHEMISTRY METHOD 05/28/2025 11:15 AM [facility] Chloride 106 96 - 110 mmol/L LAB CHEMISTRY METHOD 05/28/2025 11:15 AM [facility] CO2 29 21 - 32 mmol/L LAB CHEMISTRY METHOD 05/28/2025 11:15 AM [facility] Anion Gap 4 3 - 11 LAB CHEMISTRY METHOD 05/28/2025 11:15 AM [facility] Glucose 99 70 - 100 mg/dL LAB CHEMISTRY METHOD 05/28/2025 11:15 AM [facility] BUN 33(H) 5 - 25 mg/dL LAB CHEMISTRY METHOD 05/28/2025 11:15 AM [facility] Creatinine 1.40(H) 0.50 - 1.10 mg/dL LAB CHEMISTRY METHOD 05/28/2025 11:15 AM [facility] eGFR 44(L) >=60 mL/min/1. 73m2 LAB CHEMISTRY METHOD 05/28/2025 11:15 AM [facility] Comment:Calculation based on the Chronic Kidney Disease Epidemiology Collaboration (CKD-EPI) equation refit without adjustment for race. BUN/Creatinine Ratio 23.6 LAB CHEMISTRY METHOD 05/28/2025 11:15 AM [facility] Calcium 9.0 8.5 - 10.5 mg/dL LAB CHEMISTRY METHOD 05/28/2025 11:15 AM [facility] AST (SGOT) 18 10 - 42 unit/L LAB CHEMISTRY METHOD 05/28/2025 11:15 AM EDT [facility] ALT (SGPT) 21 10 - 60 unit/L LAB CHEMISTRY METHOD 05/28/2025 11:15 AM EDT [facility] Alkaline Phosphatase 97 42 - 121 unit/L LAB CHEMISTRY METHOD 05/28/2025 11:15 AM EDT [facility] Total Protein 6.8 6.0 - 8.0 g/dL LAB CHEMISTRY METHOD 05/28/2025 11:15 AM EDT [facility] Albumin 3.9 3.2 - 5.0 g/dL LAB CHEMISTRY METHOD 05/28/2025 11:15 AM EDT [facility] Total Bilirubin 0.5 0.0 - 1.4 mg/dL LAB CHEMISTRY METHOD 05/28/2025 11:15 AM EDT [facility] Blood Venous blood specimen / Unknown Venipuncture / Unknown 05/28/2025 8:15 AM EDT 05/28/2025 8:15 AM EDT Ana MIRZA LAB BLOOD ORDERABLES Final Resu lt [facility] [address] [place] [address], * Lab use only - Non-affiliated results notification (05/26/2025 3:33 PM EDT) Other Topography unknown / Unknown Historical Provider LAB BLOOD ORDERABLES Emily l Result * Bone Density Scan (Dexa Scan) (08/03/2023) Bone Density Scan Normal Anatomical Region Laterality Modality Other Historical Provider HEALTH MAINTENANCE Final Result * Hepatitis C Screening (09/26/2022) Hepatitis C Screening Abstracted Historical Provider HEALTH MAINTENANCE Final Result * Colonoscopy (01/01/2021) Colonoscopy No interpretation with ,abstracted Anatomical Region Laterality Modality Other Historical Provider HEALTH MAINTENANCE Final Result * Cervical Cancer Screening: HPV (12/15/2020) Cervical Cancer Screening: HPV No interpretation with Negative, abstracted Historical Provider HEALTH MAINTENANCE Final Result from Last 3 Months or Most Recently Relevant to Health Maintenance Insurance [facility] Care Teams [employer] Relationship Specialty Start Date End Date Eva Watson MD [address] [place] [phone] PCP - General Internal Medicine 06/13/22
--- OUTSIDE RECORDS SUMMARY | 2025-07-30 19:03 | XMS_ITS | Clinical Summary ---
Author Organization [facility] Address [address] [facility] [address] [place] [address] Phone Care Team Providers Care Steel Erector Name Role Phone Eva Reardon MD Primary [...] Influenza Vaccine (#1) 2025 09/15/2021, 2019 Insurance [facility] Care Teams Steel E[employer] Relationship Specialty Start Date End Date Eva Reardon MD PCP - General 08/11/22
--- OUTSIDE RECORDS SUMMARY | 2025-07-30 19:03 | XMS_ITS | Patient Health Record ---
Author Organization [facility] Address [address] [place] [address] Care Team Providers Care Composition Roofer Name Role Phone Eva Chen Primary Care Provider UnaGonzales Delarosa Unavailable [phone] Allergies Allergen (clinical drug ingredient) Drug/Non Drug [...] Status Risk Notes Problem Acquired hallux valgus (14291378) Hallux valgus (acquired), left foot (M20.12) Active confirmed Problem Localized, primary osteoarthritis of the ankle and/or foot (247012667) Primary osteoarthrit is, left ankle and foot (M19.072) Active confirmed Problem Acquired hallux valgus (03801244) Hallux valgus (acquired), right foot (M20.11) Active confirmed Plan Of Treatment Pending Test Test Name Order Date X ray : Foot, right 2V 08/30/2016 X ray : Foot, left 3V 09/19/2023 X ray : Foot, right 3V 05/26/2022 X ray : Foot, right 3V 09/19/2023 39992-Djtk Destruction, 1-14 08/30/2016 44507-Twpy Destruction, -05/28/2013 89194-Gtek Destruction, -07/04/2013 37259, J0702- INJECT or DRAIN, JOINT/BUR SA 09/19/2023, [id number]-PRPMN/INJECT, JOINT/BURSA 1 11/19/2022, W5219-DNPNB/INJECT, JOINT/BURSA 0 05/26/2022, K7149-IFRQB/INJECT, JOINT/BURSA 0 07/06/2022 Insurance Providers Payer Name Payer Address Payer Phone Subscriber Number Group Number Insured Name Patient Relationship to Insured Coverage Start Date Coverage End Date [facility] [address] [facility] [place] [address] [id number] Kristine Freitas Self - patient is the [...]
--- OUTSIDE RECORDS SUMMARY | 2025-07-30 19:03 | XMS_ITS | Clinical Summary ---
Author Organization [address] Address [address] [place] [phone] Phone Care Team Providers Care Residential Support Worker Name Role Phone Pennie Souza MD Primary Care Provider [phone] Allergies Active Allergy Reactions Criticality Noted Date [...] Series) 2016 Covid-19 vaccine series (1 - season) 2025 Influenza vaccine 07/14/2025 RSV Immunization (1 - 1-dose 75+ series) 2041 Meningococcal B Vaccine Aged Out No l onger eligible based on patient's age to complete this topic Meningococcal Vaccine Aged Out No cody deborah eligible based on patient's age to complete this topic Insurance BS BCBS BCBS Care Teams Residential Support Worker Relationship Specialty Start Date End Date Pennie Souza MD PCP - General Internal Medicine 01/19/20
--- OUTSIDE RECORDS SUMMARY | 2025-07-30 19:03 | XMS_ITS | Patient Health Record ---
Author Organization [facility] Address [address] [place] [address] Care Team Providers Care Cardiac Care Nurse Name Role Phone KARINA BRODERICK Unavailable [phone] Allergies Allergen (clinical drug ingredient) Drug/Non Drug [...] Problem Obesity due to exces s calories (592636441) Other obesity due to excess calories (E66.09) Active confirmed Problem Essential hypertension (84079841) Essential (primary) hypertension (I10) Active confirmed Problem Coarctation of aorta (8227521) Coarctation of aorta (Q25.1) Active confirmed Problem Pure hypercholesterolemia (390083074) Pure hypercholesterolemia (E78.00) Active confirmed Problem Body mass index 35.0 0 to 39.99 (498957954594381) Body mass index [BMI] 37.0-37.9, adult (Z68.37) Active confirmed Problem Atrial fibrillation (27710936) PAF (paroxysmal atrial fibrillation) (I48.0) Active confirmed Plan Of Treatment No Information Insurance Providers Payer Name Payer Address Payer Phone Subscriber Number Group Number Insured Name Patient Relationship to Insured Coverage Start Date Coverage End Date [facility] [address] [place] [address] [phone] [id number] MILAN CLARK Self - patient is the insured Medical (General) History Medical History History ICD Code high blood pressure high cholesterol hemorrhoids anemia kidney disease anxiety depression seasonal allergies Surgical History Surgery Date(Month/Year) patent ductus arterialosos 09/1967 coarctation of aorta 08/1974 angioplasty 12/1985
== END 2025-07-30 15:45 | disposition home or self-care (01) ==
LOC: HO.LAB 15:44
PROVIDERS: PCP Internal Medicine; Visit Provider Internal Medicine Nephrology
DX: N18.31 Chronic kidney disease, stage 3a (principal); I15.0 Renovascular hypertension
CPT/HCPCS: 36415; 80051; 82565; 84520

== ENCOUNTER 2025-07-31 15:39 | Outpatient (AMB) | payer OTHER, SELFPAY ==
--- NOTE | 2025-07-31 15:48 | HO.NEPHOV_ITS ---
Vital Signs 07/31/25 15:49 Height 5 ft 5 in Weight 213 lb 8 oz BMI 35.5 BP 140/60 H Blood Pressure Location Lt brachial Position Sitting Pulse 59 Pulse Source Pulse Oximeter Pulse Oximetry (%) 99 Oxygen Delivery Method Room Air Intake Visit Reasons: 2mnth w labs-Conf Public Relations Account Executive Required: No Accompanied by: Self / Same As Patient Allergies ciprofloxacin (From CIPRO) Allergy (Unknown, Verified 07/31/25 15:49) NAUSEA clarithromycin (From BIAXIN) Allergy (Unknown, Verified 07/31/25 15:49) SWELLING, HIVES Penicillins (PCN) Allergy (Unknown, Verified 07/31/25 15:49) HIVES sulfamethoxazole (From BACTRIM) Allergy (Unknown, Verified 07/31/25 15:49) HIVES trimethoprim (From BACTRIM) Allergy (Unknown, Verified 07/31/25 15:49) HIVES HPI Comments Details: Kristine was seen in follow-up of her chronic kidney disease and hypertension. She has history of coarctation of aorta. She has not had any further recent atrial fibrillation. She does not take any nonsteroidal anti-inflammatories. Kristine has not tolerated beta paulino in the past & could not tolerate the spironolactone in the past due to hyperkalemia. Her stress test was negative in the past. She uses CPAP. She has no history of proteinuria. Doppler of her renal arteries did not show any critical renal artery stenosis in the past. Her renal functions continue to remain stable. [facility] Medical History Coarctation of aorta PDA (patent ductus arteriosus) Hypertension CKD (chronic kidney disease) stage 3, GFR 30-59 ml/min Surgical History S/P ablation of atrial fibrillation H/O section History of foot surgery H/O angioplasty Family History Brother Diabetes Father Hypertension Mother Hypertension Stroke Social History Alcohol intake: never Patient Tobacco Use Status: Never used Tobacco Review of Systems Const All systems reviewed & are unremarkable except as noted in HPI and below Physical Exam Vital Signs: Last Vital Signs Pulse 59 07/31/25 15:49 BP 140/60 H 07/31/25 15:49 Pulse Ox 99 07/31/25 15:49 Oxygen Delivery Method Room Air 07/31/25 15:49 BMI result Body Mass Index 35.5 Const General: comfortable and no acute distress Orientation/consciousness: patient oriented x3 HEENT Head: Yes normocephalic Mouth: Normal oral and palatal mucosa present Eyes EOM: EOMs intact bilaterally Neck Neck: Yes supple Resp Auscultation: clear to auscultation bilaterally Cardio Jugular venous distension: no JVD Rate: regular rate GI Palpation (GI): Soft to palpation Auscultation: normal bowel sounds General: Yes no CVA tenderness Back/Spine/Pelvis Back: no CVA tenderness Skin General skin exam: no rashes or lesions noted Neuro General: patient oriented x3 and moves all extremities Extrem General: Yes no pedal edema Results Reviewed Nephrology Results: Hgb, (12.0-16.0) 11.6 g/dl L 04/01/25 WBC, (4.8-10.8) 6.8 X10*3/uL 04/01/25 Plt Count, (160-400) 213 X10*3/uL 04/01/25 Sodium, (135-145) 139 mmol/L 07/30/25 Potassium, (3.3-5.1) 4.3 mmol/L 07/30/25 Chloride, (96-108) 102 mmol/L 07/30/25 Carbon Dioxide, (22-29) 30 mmol/L H 07/30/25 BUN, (9-16) 43 mg/dL H 07/30/25 Creatinine, (0.5-1.4) 1.30 mg/dL 07/30/25 Calcium, (8.4-10.2) 9.4 mg/dL 04/01/25 Urine Protein, (Neg-Trace) Negative mg/dL 04/01/25 Urine Creatinine 132.91 mg/dL 04/01/25 Protein/Creatinin Ratio, (<0.2) 0.06 04/01/25 Assessment & Plan Assessment & Plan (1) CKD (chronic kidney disease) stage 3, GFR 30-59 ml/min: Code(s): N18.30 - Chronic kidney disease, stage 3 unspecified Category: Medical Qualifiers: Chronic kidney disease stage 3 subtype: stage 3a (GFR 45-59) Qualified Code(s): N18.31 - Chronic kidney disease, stage 3a (2) Hypertension: Code(s): I10 - Essential (primary) hypertension Category: Medical Qualifiers: Hypertension type: renovascular hypertension Qualified Code(s): I15.0 - Renovascular hypertension Zuleika Carmona has CKD 3 A and her renal functions had been stable. Her last ECHO is ess entially unchanged but has features of diastolic dysfunction. Her CKD stage 3 is due to vascular disease. Her volume status is optimal. She is watching her blood sugars closely. She is on lisinopril which she is tolerating well . She may be a candidate for Jardiance or Farxiga in the future. She avoids nonsteroidal anti-inflammatories. She will benefit from weight loss. I did not make any other medication changes today. Follow-up blood work ordered.Answered all questions Orders: Orders Creatinine 3 Months I15.0 - Renovascular hypertension, N18.31 - Chronic kidney disease, stage 3a Blood Urea Nitrogen 3 Months I15.0 - Renovascular hypertension, N18.31 - Chronic kidney disease, stage 3a Electrolytes 3 Months I15.0 - Renovascular hypertension, N18.31 - Chronic kidney disease, stage 3a Protein Creatinine Ratio, Ur 3 Months I15.0 - Renovascular hypertension, N18.31 - Chronic kidney disease, stage 3a Coding Level of Care Code Est Pt Level 4 (32432) Diagnoses Stage 3a chronic kidney disease N18.31 Chronic kidney disease stage 3 subtype: stage 3a (GFR 45-59) Renovascular hypertension I15.0 Hypertension type: renovascular hypertension
[2025-07-31 15:49] VITALS: BP 140/60; PULSE 59; O2SAT 99; BMI 35.5
--- OUTSIDE RECORDS SUMMARY | 2025-07-31 16:55 | XMS_ITS | Clinical Summary ---
Author Organization [address] Address [address] [place] [phone] Phone Care Team Providers Care Cadmium Burner Name Role Phone Pennie Souza MD Primary Care Provider [phone]- [phone] Allergies Active Allergy Reactions Criticality Noted Date [...] topic Insurance BS BCBS BCBS Care Teams Cadmium Burner Relationship Specialty Start Date End Date Pennie Souza MD PCP - General Internal Medicine 01/19/20
--- OUTSIDE RECORDS SUMMARY | 2025-07-31 16:55 | XMS_ITS | Encounter Summary ---
Author Organization [facility] Address [address] [place] [address] Phone Care Team Providers Care Dry Goods Inspector Name Role Phone Eva Reardon MD Primary Care Provider + Encounter Details Date Type Department Care Team (Late st Contact Info) Description 04/26/2022 Telephone [facility] [address] [place] [address] Sacha Malik MD Social History Tobacco [...] on filedocumented in this encounter Care Teams Dry Goods Inspector Relationship Specialty Start Date End Date Eva Reardon MD PCP - General 08/11/22 documented as of this encounter
--- OUTSIDE RECORDS SUMMARY | 2025-07-31 16:55 | XMS_ITS | Patient Health Record ---
Author Organization [facility] [address] [address] Address [address] [place] [address] Care Team Providers Care Bisque Cleaner Name Role Phone KARINA BRODERICK Unavailable [phone] Allergies Allergen (clinical drug ingredient) Drug/Non Drug [...] Problem Obesity due to exces s calories (151965466) Other obesity due to excess calories (E66.09) Active confirmed Problem Essential hypertension (74463250) Essential (primary) hypertension (I10) Active confirmed Problem Coarctation of aorta (9617385) Coarctation of aorta (Q25.1) Active confirmed Problem Pure hypercholesterolemia (541925762) Pure hypercholesterolemia (E78.00) Active confirmed Problem Body mass index 35.0 0 to 39.99 (739678712321281) Body mass index [BMI] 37.0-37.9, adult (Z68.37) Active confirmed Problem Atrial fibrillation (30224970) PAF (paroxysmal atrial fibrillation) (I48.0) Active confirmed Plan Of Treatment No Information Insurance Providers Payer Name Payer Address Payer Phone Subscriber Number Group Number Insured Name Patient Relationship to Insured Coverage Start Date Coverage End Date [facility] [address] [place] [address] [id number] MILAN CLARK Self - patient is the insured Medical (General) History Medical History History ICD Code high blood pressure high cholesterol hemorrhoids anemia kidney disease anxiety depression seasonal allergies Surgical History Surgery Date(Month/Year) patent ductus arterialosos 09/1967 coarctation of aorta 08/1974 angioplasty 12/1985
--- OUTSIDE RECORDS SUMMARY | 2025-07-31 16:55 | XMS_ITS | Patient Health Record ---
[facility] Address [address] [place] [address] Care Team Providers Care Pediatric Cns Name Role Phone Eva Chen Primary Care Provider UnaGonzales Delarosa Unavailable [phone] Allergies Allergen (clinical drug ingredient) Drug/Non Drug [...] Status Risk Notes Problem Acquired hallux valgus (79798086) Hallux valgus (acquired), left foot (M20.12) Active confirmed Problem Localized, primary osteoarthritis of the ankle and/or foot (370534805) Primary osteoarthrit is, left ankle and foot (M19.072) Active confirmed Problem Acquired hallux valgus (32707178) Hallux valgus (acquired), right foot (M20.11) Active confirmed Plan Of Treatment Pending Test Test Name Order Date X ray : Foot, right 2V 08/30/2016 X ray : Foot, left 3V 09/19/2023 X ray : Foot, right 3V 05/26/2022 X ray : Foot, right 3V 09/19/2023 66998-Tush Destruction, 1-14 08/30/2016 60191-Ugny Destruction, -05/28/2013 85533-Nlfl Destruction, -07/04/2013 23930, J0702- INJECT or DRAIN, JOINT/BUR SA 09/19/2023, I5543-HVDTN/INJECT, JOINT/BURSA 1 11/19/2022, G9478-NISKE/INJECT, JOINT/BURSA 0 05/26/2022, U1167-LJCSB/INJECT, JOINT/BURSA 0 07/06/2022 Insurance Providers Payer Name Payer Address Payer Phone Subscriber Number Group Number Insured Name Patient Relationship to Insured Coverage Start Date Coverage End Date [facility] [address] [place] [place] [address] [id number] Kristine Freitas Self - patient is the [...]
--- OUTSIDE RECORDS SUMMARY | 2025-07-31 16:55 | XMS_ITS | Clinical Summary ---
Author Organization [facility] Address [address] [place] [address] Phone Care Team Providers Care Trim Setter Name Role Phone Eva Watson MD [...] monitor. Obstructive sleep apnea 11/15/2020 Overview (12/27/2023): [facility] sleep medicine. Rec AUto CPAP 8-15 cmH2O [facility] [place]ysomn[place]: Date 10/28/2020; Wt 209#; BMI 35; [...] month follow-up in this office as her physician is who is managing her blood pressure [...] PM EDT Hospital Encounter Radiology Department - [address] [address] Encounter for screening mammogram for breast cancer Discharge Disposition: Home or Self Care 06/10/2025 1:30 PM EDT Office Visit [facility] Medicine [address] [phone] Eva Gonzalez MD Adult general medical examination (Primary Dx); Essential hypertension, benign; Mixed hyperlipidemia 05/26/2025 Telephone Adult [id number] [place], [place] [phone] Eva Gonzalez MD from Last 3 Months Immunizations Name Administration Dates Next Due Influenza Quadravalent, MDCK , 0.5ml, preservative free (Flucelvax) 6mo and older 09/15/2021,10/07/2020 Td Tetanus diptheria (Tdvax) 7yo and older 05/22 Tdap Tetanus diptheria acell ular pertussis (Boostrix; Adacel) 7yo and older 05/02/2016 Surgical History Surgery Date Site/Laterality Comments BUNIONECTOMY 1993 PROCEDURE: WA CORRJ HLX VLGS BNCTY SESMDC W/DOUBLE OSTEOTOMY; COMMENT: right foot SECTION PROCEDURE: WA DELIVERY ONLY; COMMENT: x2 CARDIAC CATHETERIZATION 2003 PROCEDURE: HISTORICAL CARDIAC CATH OTHER SURGICAL HISTORY 1966 PROCEDURE: WA REPAIR PATENT DUCTUS ARTERIOSUS LIGATION OTHER SURGICAL [...] Alive 8 - PDA Father (Age 50) [place] with hy pertension; hypercholesterolemia Maternal Grandfather (Age [...] for your loved ones. For example, children's entertainer or elderly care for an older adult? [...] 2:00 PM EDT Office Visit Adult Medicine [address] [phone] Eva Watson MD [address] [place] [address] Health Maintenance Due Date Last Done Comments [...] (Bone Density Screening) 08/03/2038 08/03/2023, 08/03/2023, 10/02/2019 RSV Immunization Adult Patients (1 - 1-dose 75+ series) 2041 Influenza Vaccine Discontinued 09/15/2021, 10/07/2020 Hepatitis C [...] Procedure Name Priority Date/Time Associated Diagnosis Comments ..LAB TO CALL RESULTS Routine 07/30/2025 2:16 PM EDT MG MAMMO DIGITAL SCREENING W JOSE BILAT [...] CALL RESULTS Routine 05/26/2025 3:33 PM EDT HM DEXA SCAN Routine 08/03/2023 HEPATITIS C SCREENING Routine 09/26/2022 COLONOSCOPY Routine 01/01/2021 HPV Routine 12/15/2020 from Last 3 Months or Most Recently Relevant to Health Maintenance Results * Lab use only - Non-affiliated results notification (07/30/2025 2:16 PM EDT) Only the most recent of2 resultswithin the time period is included. Other Topography unknown / Unknown us Historical Provider LAB BLOOD ORDERABLES Emily l Result * MG Mammo Digital Screening w Jose bilat (07/21/2025 3:49 PM EDT) Anatomical Region Laterality Modality Breast Bilateral Mammography 07/23/2025 1:10 PM EDT Impressions 07/23/2025 1:12 PM EDT No mammographic evidence of malignancy. BREAST DENSITY: C - The breasts are heterogeneously dense which may obscure small masses. BI-RADS CATEGORY: 1 - NEGATIVE RECOMMENDATION: Screening bilateral mammogram is recommended in 1 year. MAMMO LOCATION: [facility], [address] [place] [address], [address], . -------- FINAL REPORT -------- Dictated By: Alis Mcdonald Dictated Date: 07/23/2025 13:10 ET Assigned Physician: Alis Mcdonald Reviewed and Electronically Signed By: Alis Mcdonald Signed Date: 07/23/2025 13:12 ET Workstation ID: [id number] Transcribed By: Self Edit Transcribed Date: 07/23/2025 [...] is recommended in 1 year. MAMMO LOCATION: [facility], [address] [place] [address], [address], . -------- FINAL REPORT -------- Dictated By: Alis Mcdonald Dictated Date: 07/23/2025 13:10 ET Assigned Physician: Alis Mcdonald Reviewed and Electronically Signed By: Alis Mcdonald Signed Date: 07/23/2025 13:12 ET Workstation ID: [id number] Transcribed By: Self Edit Transcribed Date: 07/23/2025 13:10 ET us Eva Watson MD IMG BI PROCEDURES Final Result * (ABNORMAL) Lipid panel with reflex to direct LDL (05/28/2025 8:15 AM EDT) Cholesterol 199 0 - 200 mg/dL LAB CHEMISTRY METHOD 05/28/2025 11:15 AM EDT [facility] Triglycerides 111 0 - 150 mg/dL LAB CHEMISTRY METHOD 05/28/2025 11:15 AM EDT [facility] HDL 64 >=40 mg/dL LAB CHEMISTRY METHOD 05/28/2025 11:15 AM EDT [facility] LDL Calculated 113(H) 0 - 100 mg/dL LAB CHEMISTRY METHOD 05/28/2025 11:15 AM EDT [facility] VLDL Cholesterol Grady 22.2 mg/dL LAB CHEMISTRY METHOD 05/28/2025 11:15 AM EDT [facility] Non HDL Chol. (LDL+VLDL) 135 <145 mg/dL LAB CHEMISTRY METHOD 05/28/2025 11:15 AM EDT [facility] Chol/HDL Ratio 3.1 0.0 - 4.4 LAB CHEMISTRY METHOD 05/28/2025 11:15 AM EDT [facility] Blood Venous blood specimen / Unknown Venipuncture / Unknown 05/28/2025 8:15 AM EDT 05/28/2025 8:15 AM EDT us Ana MIRZA LAB BLOOD ORDERABLES Final Resu lt [facility] [address] [place] [address], * (ABNORMAL) CBC auto differential (05/28/2025 8:15 AM EDT) [facility] WBC 6.3 4.8 - 10.8 K/mcL LAB HEMETOLOGY METHOD 05/28/2025 10:59 AM EDT [facility] RBC 3.80 3.80 - 4.80 M/mcL LAB HEMETOLOGY METHOD 05/28/2025 10:59 AM EDT [facility] Hemoglobin 10.8(L) 11.5 - 16.0 g/dL LAB HEMETOLOGY METHOD 05/28/2025 10:59 AM [facility] Hematocrit 33.4(L) 35.0 - 47.0 % LAB HEMETOLOGY METHOD 05/28/2025 10:59 AM [facility] MCV 87.9 79.0 - 98.0 FL LAB [facility]OLOG[facility] MCH 28.4 27.0 - 32.0 pcg LAB HEMETOLOGY METHOD 05/28/2025 10:59 AM [facility] MCHC 32.3 32.0 - 37.0 g/dL LAB HEMETOLOGY METHOD 05/28/2025 10:59 AM [facility] RDW 13.2 11.0 - 15.0 % LAB HEMETOLOGY [facility] Platelets 174 130 - 400 K/mcL LAB HEMETOLOGY METHOD 05/28/2025 10:59 AM EDT [facility] MPV 11.7(H) 7.0 - 11.0 FL LAB HEMETOLOGY METHOD [facility] NRBC 0.0 <1.0 % LAB HEMETOLOGY METHOD 05/28/2025 10:59 AM [facility] NRBC Absolute 0.00 <0.10 K/mcL LAB HEMETOLOGY METHOD 05/28/2025 10:59 AM [facility] Neutrophils Relative 65.0 % LAB HEMETOLOGY METHOD 05/28/2025 10:59 AM [facility] Lymphocytes Relative 22.8 % LAB HEMETOLOGY METHOD 05/28/2025 10:59 AM [facility] Monocytes Relative 8.1 % LAB HEMETOLOGY METHOD 05/28/2025 10:59 AM [facility] Eosinophils Relative 3.0 % LAB HEMETOLOGY METHOD 05/28/2025 10:59 AM [facility] Basophils Relative 0.5 % LAB HEMETOLOGY METHOD 05/28/2025 10:59 AM [facility] Immature Granulocytes Relative 0.6 % LAB HEMETOLOGY METHOD 05/28/2025 10:59 AM [facility] Neutrophils Absolute 4.07 1.50 - 7.00 K/mcL LAB HEMETOLOGY METHOD 05/28/2025 10:59 AM [facility] Lymphocytes Absolute 1.43 1.00 - 5.00 K/mcL LAB HEMETOLOGY METHOD 05/28/2025 10:59 AM [facility] Monocytes Absolute 0.51 0.20 - 1.00 K/mcL LAB HEMETOLOGY METHOD 05/28/2025 10:59 AM [facility] Eosinophils Absolute 0.19 0.00 - 0.50 K/mcL LAB HEMETOLOGY METHOD 05/28/2025 10:59 AM [facility] Basophils Absolute 0.03 0.00 - 0.20 K/mcL LAB HEMETOLOGY METHOD 05/28/2025 10:59 AM [facility] Immature Granulocytes Absolute 0.04(H) 0.00 - 0.03 K/mcL LAB HEMETOLOGY METHOD 05/28/2025 10:59 AM [facility] Blood Venous blood specimen / Unknown Venipuncture / Unknown 05/28/2025 8:15 AM EDT 05/28/2025 8:15 AM EDT us Ana MIRZA LAB BLOOD ORDERABLES Final Resu lt [facility] [address] [place] [address], [place] [phone] * (ABNORMAL) Comprehensive metabolic panel (05/28/2025 8:15 AM EDT) Sodium 139 133 - 145 mmol/L LAB CHEMISTRY METHOD 05/28/2025 11:15 AM [facility] Potassium 4.2 3.5 - 5.5 mmol/L LAB CHEMISTRY METHOD 05/28/2025 11:15 AM [facility] Chloride 106 96 - 110 mmol/L LAB CHEMISTRY METHOD 05/28/2025 11:15 AM [facility] CO2 29 21 - 32 mmol/L LAB CHEMISTRY METHOD 05/28/2025 11:15 AM [facility] Anion Gap 4 3 - 11 LAB CHEMISTRY METHOD 05/28/2025 11:15 AM [facility] Glucose 99 70 - 100 mg/dL LAB CHEMISTRY METHOD 05/28/2025 11:15 AM [facility] BUN 33(H) 5 - 25 mg/dL LAB CHEMISTRY METHOD 05/28/2025 11:15 AM [facility] Creatinine 1.40(H) 0.50 - 1.10 mg/dL LAB CHEMISTRY METHOD 05/28/2025 11:15 AM [facility] eGFR 44(L) >=60 mL/min/1. 73m2 LAB CHEMISTRY METHOD 05/28/2025 11:15 AM [facility] Comment:Calculation based on the Chronic Kidney Disease Epidemiology Collaboration (CKD-EPI) equation refit without adjustment for race. BUN/Creatinine Ratio 23.6 LAB CHEMISTRY METHOD 05/28/2025 11:15 AM [facility] Calcium 9.0 8.5 - 10.5 mg/dL LAB CHEMISTRY METHOD 05/28/2025 11:15 AM [facility] AST (SGOT) 18 10 - 42 unit/L LAB CHEMISTRY METHOD 05/28/2025 11:15 AM [facility] ALT (SGPT) 21 10 - 60 unit/L LAB CHEMISTRY METHOD 05/28/2025 11:15 AM [facility] Alkaline Phosphatase 97 42 - 121 unit/L LAB CHEMISTRY METHOD 05/28/2025 11:15 AM [facility] Total Protein 6.8 6.0 - 8.0 g/dL LAB CHEMISTRY METHOD 05/28/2025 11:15 AM [facility] Albumin 3.9 3.2 - 5.0 g/dL LAB CHEMISTRY METHOD 05/28/2025 11:15 AM [facility] Total Bilirubin 0.5 0.0 - 1.4 mg/dL LAB CHEMISTRY METHOD 05/28/2025 11:15 AM [facility] Blood Venous blood specimen / Unknown Venipuncture / Unknown 05/28/2025 8:15 AM EDT 05/28/2025 8:15 AM EDT us Ana MIRZA LAB BLOOD ORDERABLES Final Resu lt [facility] [address] [place] [address], [place] [phone] * Bone Density Scan (Dexa Scan) (08/03/2023) Bone Density Scan Normal Anatomical Region Laterality Modality Other Historical Provider HEALTH MAINTENANCE Final Result * Hepatitis C Screening (09/26/2022) Hepatitis C Screening Abstracted Historical Provider MD HEALTH MAINTENANCE Final Result * Colonoscopy (01/01/2021) Colonoscopy No interpretation with ,abstracted Anatomical Region Laterality Modality Other Historical Provider HEALTH MAINTENANCE Final Result * Cervical Cancer Screening: HPV (12/15/2020) Cervical Cancer Screening: HPV No interpretation with Negative, abstracted [facility] Provider HEALTH MAINTENANCE Final Result from Last 3 Months or Most Recently Relevant to Health Maintenance Insurance [facility] Care Teams Trim Setter Relationship Specialty Start Date End Date Eva Watson MD [address] [place] [address] PCP - General Internal Medicine 06/13/22
--- OUTSIDE RECORDS SUMMARY | 2025-07-31 16:55 | XMS_ITS | Clinical Summary ---
Author Organization [facility] Address [address] [facility] [address] [place] [address] Phone Care Team Providers Care Architect Manager Name Role Phone Eva Reardon MD [...] Influenza Vaccine (#1) 2025 09/15/2021, 2019 Insurance [facility] Care Teams Architect Manager Relationship Specialty Start Date End Date Eva Reardon MD PCP - General 08/11/22
== END 2025-07-31 16:08 | disposition home or self-care (01) ==
LOC: HO.HKAS 15:40
PROVIDERS: PCP Internal Medicine; Visit Provider Internal Medicine Nephrology
DX: I12.9 Hypertensive chronic kidney disease with stage 1 through stage 4 chronic kidney disease, or unspecified chronic kidney disease (principal); N18.31 Chronic kidney disease, stage 3a
CPT/HCPCS: 99214

== ENCOUNTER 2025-10-22 16:33 | Outpatient (REF) | payer OTHER, SELFPAY ==
[2025-10-22 17:31] LABS: Anion Gap 13 (12-20); Blood Urea Nitrogen 32 mg/dL (9-16); Carbon Dioxide 30 mmol/L (22-29); Chloride 101 mmol/L (96-108); Estimated Glomerular Filt Rate 41; Potassium 4.1 mmol/L (3.3-5.1); Sodium 140 mmol/L (135-145)
[2025-10-22 19:36] LABS: Total Protein Urine Random < 7 mg/dL (<12)
--- OUTSIDE RECORDS SUMMARY | 2025-10-23 00:52 | XMS_ITS | Patient Health Record ---
[facility] Address [address] [place] [address] Care Team Providers Care Woods Rider Name Role Phone Eva Chen Primary Care Provider Ying Cleveland [phone] Allergies Allergen (clinical drug ingredient) Drug/Non Drug [...] Duration) Notes Start Date End Date Status Fluticasone Propionate 50 MCG/ACT SPRAY 2 SPRAYS INTO EACH NOSTRIL EVERY DAY Nasal; Duration: 30 nasal spary Active Eliquis 5 MG Orally 2 x [...] 02/02/2023 Not-Taking Calcium Citrate + D Active Voltaren 1 % as directed Externally Active Pneumatic Compression Boot 30mm Hg as directed over swollen feet and legs as directed; Duration: . Active Sertraline HCl 200 MG as directed Orally Active Night Splint AFO - L1930 1 wear at rest; Duration: 30 days Active Simvastatin 20 MG as directed Orally Once a day 08/30/2016 Active Trifluridine 1 % INSTILL 1 DROP INTO THE RIGHT EYE 8 TIMES A DAY Ophthalmic; Duration: 30 Not-Taking Spironolactone 25 MG 0.5 tablet Orally Once a day Active Nitrofurantoin Macrocrystal 100 MG TAKE 1 CAPSULE BY MOUTH 4 TIMES DAILY FOR 7 DAYS Oral; Duration: 7 Not-Taking Pantoprazole Sodium 20 MG 1 tablet twice a day Active Labetalol HCl 100 MG Orally twice a day Not-Taking Lisinopril 20 MG as directed Orally Twice a day 08/30/2016 Active Flonase 50 MCG/ACT 1 spray in each nostril Nasally twice a day; Duration: 30 day(s) Not-Taking hydroCHLOROthiazide 25 MG 1 tablet Orall y Once a day; Duration: 30 day(s) Not-Taking predniSONE 5 MG 4 tablets once a day for 3 days, 3 tablets once a day for 3 days, 2 tablets once a day for 3 days, 1 tablet once a day for 3 days Orally; Duration: 12 days 09/22/2025 Active Immunizations Vaccine Route Administration Date Status Comme nts Influenza Unknown 08/15/2025 Administered COVID-19 Pfizer BioNTech Vaccine Unknown 12/10/2021 Administered 1st 01/27/21 2nd 02/18/21 Social History Tobacco Use: Social History Observation Description Date Details (start date - stop date) Never Smoker NA - NA Tobacco use other than smoking: Question Answer Notes Are you an other tobacco user? No Tobacco Control (Standard) Question Answer Notes Tobacco use: Nonsmoker Additional Findings: Tobacco non-user Current no nsmoker AUDIT-C (Standard) Question Answer Notes Did you have a drink containing alcohol in the p ast year? 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) Plantar fasciitis, bilateral (M72.2) Active confirmed Vital Signs Blood pressure diastolic 65 mm Hg 09/19/2025 Height 5ft 5in in 09/19/2025 Blood pressure systolic 128 mm Hg 09/19/2025 Weight 208 lbs 09/19/2025 BMI 34.61 kg/m2 09/19/2025 Encounters Encounter Location Date Provider Diagnosis [address] [address] 09/19/2025 Ying Reyes Pain in right foot M79.671 ; Plantar fasciitis, bilateral M72.2 ; Calcaneal spur, right foot M77.31 ; Other myositis of right foot M60.871 ; Bursitis of right foot M77.51 ; Pain in left foot M79.672 ; Calcaneal spur, left foot M77.32 ; Other myositis of left foot M60.872 and Bursitis of left foot M77.[address] [address] 09/19/2025 Yingceline Reyes [address] [address] 09/19/[address] [address] 09/22/2025 Ying Reyes Assessments Encounter Date Diagnosis (ICD Code) Assessment Notes Treatment Notes Treatment Clinical Notes Section Notes 09/19/2025 Pain in right foot (ICD-10 - M79.671) 09/19/2025 Plantar fasciitis, bilateral (ICD-10 - M72.2) Patient Educated with: HEEL CORD STRETCHES.pdf (HEEL CORD STRETCHES.pdf) Patient Educated with: RICE THERAPY.pdf (RICE THERAPY.pdf) 09/19/2025 Calcaneal spur, right foot (ICD-10 - M77.31) 09/19/2025 Other myositis of right foot (ICD-10 - M60.871) 09/19/2025 Bursitis of right foot (ICD-10 - M77.51) 09/19/2025 Pain in left foot (ICD-10 - M79.672) 09/19/2025 Calcaneal spur, left foot (ICD-10 - M77.32) 09/19/2025 Other myositis of left foot (ICD-10 - M60.872) 09/19/2025 Bursitis of left foot (ICD-10 - M77.52) Plan Of Treatment Pending Test Test Name Order Date X ray : Foot, right 2V 08/30/2016 X ray : Foot, left 3V 09/19/2023 X ray : Foot, left 3V 09/19/2025 X ray : Foot, right 3V 09/19/2025 X ray : Foot, right 3V 09/19/2023 X ray : Foot, right 3V 05/26/2022 27807-Kgrl Destruction, 1-14 08/30/2016 56616-Lidm Destruction, 1-14 05/28/2013 45489-Vwzh Destruction, 1-14 07/04/2013 68845, J0702- INJECT or DRAIN, JOINT/BUR SA 09/19/2023 00520, [id number]-GTVWU/INJECT, JOINT/BURSA 1 11/19/2022 25806, L7593-XZNAE/INJECT, JOINT/BURSA 0 05/26/2022, N3396-FQFRK/INJECT, JOINT/BURSA 0 07/06/2022 Next Appt Details Provider Name:Ying Barajaskalli urbina, 11/21/2025 02:00:00 PM, [address] [facility] [address], [place], [address], Insurance Providers Payer Name Payer Address Payer Phone Subscriber Number Group Number Insured Name Patient Relationship to Insured Coverage Start Date Coverage End Date [facility] [address] [place] [address] [id number] Kirstine Freitas Self - patient is the insured Medical (General) History Medical History History ICD Code hypertension cholesterol chicken pox back, hip, knee pain anxiety Anemia covid-19 Kidney disease A-Fib Broken bones Surgical History Surgery Date(Month/Year) angioplasty 1984 aortic valve replacement 1973 unspecified surgery 1967 bunionectomy 1993 section 1994, 1999 patent ductuc arteriosis 1966 Hospitalization History Reason Date(Month/Year) atrial fibrilation 08/2018 atrial fibrilation 11/2017
--- OUTSIDE RECORDS SUMMARY | 2025-10-23 00:52 | XMS_ITS | Encounter Summary ---
Author Organization [facility] Address [address] [place] [address] Phone Care Team Providers Care Apprentice Painter Hand Name Role Phone Eva Reardon MD Primary Care Provider + Encounter Details Date Type Department Care Team (Late st Contact Info) Description 04/26/2022 Telephone [facility] [address] [facility] [address] [place] [address] Sacha Malik MD [address] [place] [id number] Social History Tobacco Use Types Packs/Day Years [...] on filedocumented in this encounter Care Teams Apprentice Painter Hand Relationship Specialty Start Date End Date Eva Reardon MD PCP - General 9/29/22 documented as of this encounter
--- OUTSIDE RECORDS SUMMARY | 2025-10-23 00:52 | XMS_ITS | Clinical Summary ---
Author Organization [address] Address [address] [place] [address] Phone Care Team Providers Care Medical Supervisor Name Role Phone Pennie Souza MD Primary Care Provider [phone]- [phone] Allergies Active Allergy Reactions Criticality Noted Date [...] 2 Dose Standard Series) 2016 Influenza vaccine 06/13/2025 Covid-19 vaccine series (1 - 2024- season) 2025 RSV Immunization (1 - 1-dose 75+ series) 2041 Meningococcal B Vaccine Aged Out No l onger eligible based on patient's age to complete this topic Meningococcal Vaccine Aged Out No cody deborah eligible based on patient's age to complete this topic Insurance BS BCBS BCBS Care Teams Medical Supervisor Relationship Specialty Start Date End Date Pennie Souza MD PCP - General Internal Medicine 01/19/20
--- OUTSIDE RECORDS SUMMARY | 2025-10-23 00:52 | XMS_ITS | Clinical Summary ---
Author Organization [facility] Address [address] [facility] [address] [place] [address] Phone Care Team Providers Care Methods Examiner Name Role Phone Eva Reardon MD Primary [...] Influenza Vaccine (#1) 2025 09/15/2021, 2019 Insurance [facility] Care Teams Methods Examiner Relationship Specialty Start Date End Date Eva Reardon MD PCP - General 08/11/22
--- OUTSIDE RECORDS SUMMARY | 2025-10-23 00:52 | XMS_ITS | Patient Health Record ---
Author Organization [facility] Address [address] [place] [address] Care Team Providers Care Car Repair Supervisor Name Role Phone KARINA BRODERICK Unavailable [phone] Allergies Allergen (clinical drug ingredient) Drug/Non Drug [...] Date End Date Status Eliquis 5 MG Tablet as directed Orally twice a day Active Lisinopril 30 MG Tablet as directed, 10m g in the morning, 20mg at night Orally twice a day Active Simvastatin 40 MG Tablet 1 tablet in the evening Orally Once a day Active hydroCHLOROthiazide 25 MG Tablet 1 tablet in the morning Orally Once a day Active Sertraline HCl 150 MG Capsule 1 tablet O rally Once a day Active Pulmicort Active Social History Tobacco Use: Social History Observation Description Date Details (start date - stop date) Current Smoker NA - NA Social History Tobacco Use: Social Info Question Answer Notes Tobacco Use/Smoking Are you a current smoker How often do you smoke cigarettes? every day Section Notes: 1 pack a day, 12yrs Problems Problem Type SNOMED Code ICD Code Onset Dates Problem Status W/U Status Risk Notes Problem Obesity due to exces s calories (703172371) Other obesity due to excess calories (E66.09) Active confirmed Problem Essential hypertension (82600741) Essential (primary) hypertension (I10) Active confirmed Problem Coarctation of aorta (7565024) Coarctation of aorta (Q25.1) Active confirmed Problem Pure hypercholesterolemia (392389564) Pure hypercholesterolemia (E78.00) Active confirmed Problem Body mass index 35.0 0 to 39.99 (685159989129750) Body mass index [BMI] 37.0-37.9, adult (Z68.37) Active confirmed Problem Atrial fibrillation (16237131) PAF (paroxysmal atrial fibrillation) (I48.0) Active confirmed Plan Of Treatment No Information Insurance Providers Payer Name Payer Address Payer Phone Subscriber Number Group Number Insured Name Patient Relationship to Insured Coverage Start Date Coverage End Date [facility] [address] [place] [address] [phone] [id number] MILAN CLARK Self - patient is the insured Medical (General) History Medical History History ICD Code high blood pressure high cholesterol hemorrhoids anemia kidney disease anxiety depression seasonal allergies Surgical History Surgery Date(Month/Year) patent ductus arterialosos 09/1967 coarctation of aorta 08/1974 angioplasty 12/1985
--- OUTSIDE RECORDS SUMMARY | 2025-10-23 00:52 | XMS_ITS | Clinical Summary ---
Author Organization [facility] Address [address] [place] [address] Phone Care Team Providers Care Speed Runner Name Role Phone Eva Watson MD Primary [...] mouth 1 (one) time each day. Active dilTIAZem XR (DILACOR XR) 180 mg 24 hr capsule Take 1 capsule (180 mg total) by mouth. 3 Active simvastatin (ZOCOR) 20 mg tablet Take [...] not crush, chew, or split. Active lisinopriL (PRINIVIL,ZESTRIL) 2.5 mg tablet Take 1 tablet (2.5 mg total) by mouth 2 (two) times a day. 5 Active fluticasone propionate (FLONASE) 50 mcg/actuation nasal spray USE 2 SPRAYS INTO EACH NOSTRIL ONCE DAILY 16 mL 1 5 Active lisinopriL (PRINIVIL,ZESTRIL) 10 mg tablet Take 1 tablet (10 mg total) by mouth 1 (one) time each day. Take in the pm Active sertraline (ZOLOFT) 100 mg tablet TAKE 2 TABLETS BY MOUTH EVERY DAY 180 tablet 1 5 Active cefdinir (OMNICEF) 300 mg capsuleIndications: Other non-recurrent acute nonsuppurative otitis media of both ears Take 1 capsule (300 mg total) by mouth 2 (two) times a day for 7 days. 14 each 5 10/06/20 25 Active Problems Problem Noted Date Diagnosed Date Breast complaint 10/18/2024 Assessment & Plan (10/18/2024 2:11 PM EST): I reassured Milan that I see no abnormalities of her [...] monitor. Obstructive sleep apnea 11/15/2020 Overview (12/27/2023): [facility] sleep medicine. Rec AUto CPAP 8-15 cmH2O [facility] [place] [place] Polysomnogram: Date 10/28/2020; Wt 209#; BMI 35; [...] month follow-up in this office as her desktop analyst is who is managing her blood pressure [...] Encounters Date Type Department Care Team Description 09/29/2025 4:15 PM EST Office Visit Walk-In [facility] - [address] [address] Salazar Aquino NP Other non-recurrent acute nonsuppurative otitis media of both ears (Primary Dx) 09/11/2025 1:30 PM EDT Office Visit Adult [facility] [address] [place] [phone] Eva Gonzalez MD [place] atrial fibrillation (CMS/HCC V24, CMS/HCC V28) (Primary Dx); Anxiety 09/08/2025 10:00 AM EDT Office Visit Walk-In [address] [address] Errol Luke PA Acute bacterial rhinosinusitis (Primary Dx) 09/08/2025 Telephone Walk-In [facility] [address] [place] [phone] Errol Luke PA 08/19/2025 Telephone Adult Medicine [address] [address] Bethany Nelson MA from Last 3 Months Immunizations Immunization Administration Dates Next Due Influenza Quadravalent, MDCK , 0.5ml, preservative free (Flucelvax) 6mo and older 09/15/2021,10/07/2020 Td Tetanus diptheria (Tdvax) 7yo and older 05/22 Tdap Tetanus diptheria acell ular pertussis (Boostrix; Adacel) 7yo and older 05/02/2016 Surgical History Surgery Date Site/Laterality Comments BUNIONECTOMY 1993 PROCEDURE: OH CORRJ HLX VLGS BNCTY SESMDC W/DOUBLE OSTEOTOMY; COMMENT: right foot SECTION PROCEDURE: [place] DELIVERY ONLY; COMMENT: x2 CARDIAC CATHETERIZATION 2003 PROCEDURE: HISTORICAL CARDIAC CATH OTHER SURGICAL HISTORY 1966 PROCEDURE: OH REPAIR PATENT DUCTUS ARTERIOSUS LIGATION OTHER SURGICAL [...] Alive 8 - PDA Father (Age 50) [place] with hy pertension; hypercholesterolemia Maternal Grandfather (Age [...] for your loved ones. For example, child and adolescent psychologist or elderly care for an older adult? [...] Date Recorded What is your living situation? Unrecognized valu e 12/01/2024 Comments No Sex and Gender Information [...] Sign Reading Time Taken Comments Blood Pressure 166/65 09/29/2025 4:18 PM EST Pulse 64 09/29/2025 4:18 PM EST Temperature 36.3 C (97.4 F) 09/29/2025 4:18 PM EST Respiratory Rate 14 09/11/2025 1:29 PM EDT Oxygen Saturation 98% 09/29/2025 4:18 PM EST Inhaled Oxygen Concentration - - Weight 97.8 kg (215 lb 9.6 oz) 09/11/2025 1:29 P M EDT Height 165.1 cm (5' 5 ) 09/11/2025 1:29 PM EDT Body Mass Index 35.88 09/11/2025 1:29 PM EDT Plan of Treatment Upcoming Encounters Date Type Department Care Team (Late st Contact Info) Description 02/26/2026 3:30 PM EDT Office Visit Obstetrics and Gynecology - [address] [phone] Azalia Ocasio CNM [address] [place] [address] 06/12/2026 2:00 PM EDT Office Visit Adult Medicine [facility] - [address] [phone] Eva Watson MD [address] [place] [address] 07/22/2026 3:40 PM EDT Appointment Radiology Department - [address] [phone] Health Maintenance Due Date Last Done Comments RSV Immunization Adult Patients (1 - Risk 50-74 years 1-dose series) 2016 COVID-19 Vaccine ( season) 2025 09/16/2022, 12/10/2021, [...] C Screening Completed 09/26/2022 Depression Screening Completed 09/11/2025 HIB Vaccines Aged Out No longer eligi [...] Encounter for screening mammogram for breast cancer COMPREHENSIVE METABOLIC PANEL Routine 05/28/2025 8:15 AM EDT Screening for cardiovascular condition LIPID PANEL WITH REFLEX TO DIRECT LDL Routine 05/28/2025 8:15 AM EDT Screening for cardiovascular condition HM DEXA SCAN Routine 08/03/2023 HM HEPATITIS C SCREENING Routine 09/26/2022 HM COLONOSCOPY Routine 01/01/2021 HM HPV Routine 12/15/2020 from Last 3 Months or Most Recently Relevant to Health Maintenance Results * Lab use only - Non-affiliated results notification (07/30/2025 2:16 PM EDT) Other Topography unknown / Unknown us Historical [...] is recommended in 1 year. MAMMO LOCATION: [facility], [address] [place] [address], [address], . -------- FINAL REPORT -------- Dictated By: Alis Mcdonald Dictated Date: 07/23/2025 13:10 ET Assigned Physician: Alis Mcdonald Reviewed and Electronically Signed By: Alis Mcdonald Signed Date: 07/23/2025 13:12 ET Workstation ID: [id number] Transcribed By: Self Edit Transcribed Date: 07/23/2025 [...] is recommended in 1 year. MAMMO LOCATION: [facility], [address] [place] [address], [address], . -------- FINAL REPORT -------- Dictated By: Alis Mcdonald Dictated Date: 07/23/2025 13:10 ET Assigned Physician: Alis Mcdonald Reviewed and Electronically Signed By: Alis Mcdonald Signed Date: 07/23/2025 13:12 ET Workstation ID: [id number] Transcribed By: Self Edit Transcribed Date: 07/23/2025 13:10 ET us Eva Watson MD IMG BI PROCEDURES Final Result * (ABNORMAL) Lipid panel with reflex to direct LDL (05/28/2025 8:15 AM EDT) Cholesterol 199 0 - 200 mg/dL LAB CHEMISTRY METHOD 05/28/2025 11:15 AM EDT [facility] Triglycerides 111 0 - 150 mg/dL LAB CHEMISTRY METHOD 05/28/2025 11:15 AM EDT [facility] HDL 64 >=40 mg/dL LAB CHEMISTRY METHOD 05/28/2025 11:15 AM EDT [facility] LDL Calculated 113(H) 0 - 100 mg/dL LAB CHEMISTRY METHOD 05/28/2025 11:15 AM EDT [facility] VLDL Cholesterol Grady 22.2 mg/dL LAB CHEMISTRY METHOD 05/28/2025 11:15 AM EDT [facility] Non HDL Chol. (LDL+VLDL) 135 <145 mg/dL LAB CHEMISTRY METHOD 05/28/2025 11:15 AM EDT [facility] Chol/HDL Ratio 3.1 0.0 - 4.4 LAB CHEMISTRY METHOD 05/28/2025 11:15 AM EDT [facility] Blood Venous blood specimen / Unknown Venipuncture / Unknown 05/28/2025 8:15 AM EDT 05/28/2025 8:15 AM EDT us Ana MIRZA LAB BLOOD ORDERABLES Final Resu lt [facility] [address] [place] [address], [place] [phone] * (ABNORMAL) Comprehensive metabolic panel (05/28/2025 8:15 AM EDT) Sodium 139 133 - 145 mmol/L LAB CHEMISTRY METHOD 05/28/2025 11:15 AM [facility] Potassium 4.2 3.5 - 5.5 mmol/L LAB CHEMISTRY METHOD 05/28/2025 11:15 AM [facility] Chloride 106 96 - 110 mmol/L LAB CHEMISTRY METHOD 05/28/2025 11:15 AM [facility] CO2 29 21 - 32 mmol/L LAB CHEMISTRY METHOD 05/28/2025 11:15 AM [facility] Anion Gap 4 3 - 11 LAB CHEMISTRY METHOD 05/28/2025 11:15 AM [facility] Glucose 99 70 - 100 mg/dL LAB CHEMISTRY METHOD 05/28/2025 11:15 AM [facility] BUN 33(H) 5 - 25 mg/dL LAB CHEMISTRY METHOD 05/28/2025 11:15 AM [facility] Creatinine 1.40(H) 0.50 - 1.10 mg/dL LAB CHEMISTRY METHOD 05/28/2025 11:15 AM [facility] eGFR 44(L) >=60 mL/min/1. 73m2 LAB CHEMISTRY METHOD 05/28/2025 11:15 AM [facility] Comment:Calculation based on the Chronic Kidney Disease Epidemiology Collaboration (CKD-EPI) equation refit without adjustment for race. BUN/Creatinine Ratio 23.6 LAB CHEMISTRY METHOD 05/28/2025 11:15 AM [facility] Calcium 9.0 8.5 - 10.5 mg/dL LAB CHEMISTRY METHOD 05/28/2025 11:15 AM [facility] AST (SGOT) 18 10 - 42 unit/L LAB CHEMISTRY METHOD 05/28/2025 11:15 AM [facility] ALT (SGPT) 21 10 - 60 unit/L LAB CHEMISTRY METHOD 05/28/2025 11:15 AM [facility] Alkaline Phosphatase 97 42 - 121 unit/L LAB CHEMISTRY METHOD 05/28/2025 11:15 AM EDT [facility] Total Protein 6.8 6.0 - 8.0 g/dL LAB CHEMISTRY METHOD 05/28/2025 11:15 AM EDT [facility] Albumin 3.9 3.2 - 5.0 g/dL LAB CHEMISTRY METHOD 05/28/2025 11:15 AM EDT [facility] Total Bilirubin 0.5 0.0 - 1.4 mg/dL LAB CHEMISTRY METHOD 05/28/2025 11:15 AM EDT [facility] Blood Venous blood specimen / Unknown Venipuncture / Unknown 05/28/2025 8:15 AM EDT 05/28/2025 8:15 AM EDT Ana MIRZA LAB BLOOD ORDERABLES Final Resu lt [facility] [address] [place] [address], [place] [phone] * Bone Density Scan (Dexa Scan) (08/03/2023) [facility] Bone Density Scan Normal Anatomical Region Laterality Modality Other [facility] Provider HEALTH MAINTENANCE Final Result * Hepatitis C Screening (09/26/2022) [facility] Hepatitis C Screening Abstracted [facility] Provider HEALTH MAINTENANCE Final Result * Colonoscopy (01/01/2021) [facility] Colonoscopy No interpretation with ,abstracted Anatomical Region Laterality Modality Other [facility] Provider HEALTH MAINTENANCE Final Result * Cervical Cancer Screening: HPV (12/15/2020) [facility] Cervical Cancer Screening: HPV No interpretation with Negative, abstracted [facility] HEALTH MAINTENANCE Final Result from Last 3 Months or Most Recently Relevant to Health Maintenance Insurance [facility] Care Teams Speed Runner Relationship Specialty Start Date End Date Eva Watson MD [address] [place] [address] PCP - General Internal Medicine 06/13/22
== END 2025-10-22 16:34 ==
LOC: HO.LAB 16:33
PROVIDERS: PCP Internal Medicine; Visit Provider Internal Medicine Nephrology
DX: I15.0 Renovascular hypertension (principal); N18.31 Chronic kidney disease, stage 3a
CPT/HCPCS: 36415; 80051; 82565; 82570; 84156; 84520

== ENCOUNTER 2025-10-30 15:49 | Outpatient (AMB) | payer OTHER, SELFPAY ==
--- NOTE | 2025-10-30 16:08 | HO.NEPHOV ---
Vital Signs 10/30/25 16:09 Height 5 ft 5 in Weight 215 lb 8 oz BMI 35.9 BP 160/64 H Blood Pressure Location Lt brachial Position Sitting Pulse 72 Pulse Source Pulse Oximeter Pulse Oximetry (%) 100 Oxygen Delivery Method Room Air Intake Visit Reasons: 3 mo follow up-[facility] Fishery Biologist Required: No Accompanied by: Daughter Allergies ciprofloxacin (From CIPRO) Allergy (Unknown, Verified 10/30/25 16:09) NAUSEA clarithromycin (From BIAXIN) Allergy (Unknown, Verified 10/30/25 16:09) SWELLING, HIVES Penicillins (PCN) Allergy (Unknown, Verified 10/30/25 16:09) HIVES sulfamethoxazole (From BACTRIM) Allergy (Unknown, Verified 10/30/25 16:09) HIVES trimethoprim (From BACTRIM) Allergy (Unknown, Verified 10/30/25 16:09) HIVES HPI Comments Details: Kristine was seen in follow-up of her chronic kidney disease and hypertension. She has history of coarctation of aorta. She recently had atrial fibrillation with RVR needing cardioversion. She has H/O ablation in the past. She does not take any nonsteroidal anti-inflammatories. Kristine has not tolerated beta paulino in the past & could not tolerate the spironolactone in the past due to hyperkalemia. Her stress test was negative in the past. She uses CPAP. She has no history of proteinuria. Doppler of her renal arteries did not show any critical renal artery stenosis in the past. Her renal functions continue to remain stable but her BP has been going up mostly mid noon time [facility] Medical History (Updated 10/30/25 @ 16:13 by Estephanie Mauro MA) Plantar fasciitis Atrial fibrillation Coarctation of aorta PDA (patent ductus arteriosus) Hypertension CKD (chronic kidney disease) stage 3, GFR 30-59 ml/min Surgical History S/P ablation of atrial fibrillation H/O section History of foot surgery H/O angioplasty Family History Brother Diabetes Father Hypertension Mother Hypertension Stroke Social History Alcohol intake: never Patient Tobacco Use Status: Never used Tobacco Review of Systems Const All systems reviewed & are unremarkable except as noted in HPI and below Physical Exam Vital Signs: Last Vital Signs Pulse 72 10/30/25 16:09 BP 160/64 H 10/30/25 16:09 Pulse Ox 100 10/30/25 16:09 Oxygen Delivery Method Room Air 10/30/25 16:09 BMI result Body Mass Index 35.9 Const General: comfortable and no acute distress Orientation/consciousness: patient oriented x3 HEENT Head: Yes normocephalic Mouth: Normal oral and palatal mucosa present Eyes EOM: EOMs intact bilaterally Neck Neck: Yes supple Resp Auscultation: clear to auscultation bilaterally Cardio Jugular venous distension: no JVD Rate: regular rate GI Palpation (GI): Soft to palpation Auscultation: normal bowel sounds General: Yes no CVA tenderness Back/Spine/Pelvis Back: no CVA tenderness Skin General skin exam: no rashes or lesions noted Neuro General: patient oriented x3 and moves all extremities Extrem General: Yes no pedal edema Results Reviewed Nephrology Results: Sodium, (135-145) 140 mmol/L 10/22/25 Potassium, (3.3-5.1) 4.1 mmol/L 10/22/25 Chloride, (96-108) 101 mmol/L 10/22/25 Carbon Dioxide, (22-29) 30 mmol/L H 10/22/25 BUN, (9-16) 32 mg/dL H 10/22/25 Creatinine, (0.5-1.4) 1.33 mg/dL 10/22/25 Calcium, (8.4-10.2) 9.4 mg/dL 04/01/25 Urine Protein, (Neg-Trace) Negative mg/dL 04/01/25 Urine Creatinine 68.45 mg/dL 10/22/25 Protein/Creatinin Ratio TNP 10/22/25 Assessment & Plan Assessment & Plan (1) Hypertension: Code(s): I10 - Essential (primary) hypertension Category: Medical Qualifiers: Hypertension type: renovascular hypertension Qualified Code(s): I15.0 - Renovascular hypertension (2) CKD (chronic kidney disease) stage 3, GFR 30-59 ml/min: Code(s): N18.30 - Chronic kidney disease, stage 3 unspecified Category: Medical Qualifiers: Chronic kidney disease stage 3 subtype: stage 3a (GFR 45-59) Qualified Code(s): N18.31 - Chronic kidney disease, stage 3a Zuleika Carmona has CKD 3 A and her renal functions had been stable. Her last ECHO is essentially unchanged but has features of diastolic dysfunction. She is on anticoagulation for A Fib. Her CKD stage 3 is due to vascular disease. Her volume status is optimal. She is watching her blood sugars closely. She is on lisinopril which she is tolerating well . I increased her lisinopril to 10 mg bid. She is a candidate for Jardiance or Farxiga in the future. She avoids nonsteroidal anti-inflammatories. She will benefit from weight loss. I did not make any other medication changes today. Follow-up blood work ordered.Answered all questions Orders: Orders Blood Urea Nitrogen 1 Month I15.0 - Renovascular hypertension, N18.31 - Chronic kidney disease, stage 3a Electrolytes 1 Month I15.0 - Renovascular hypertension, N18.31 - Chronic kidney disease, stage 3a Creatinine 1 Month I15.0 - Renovascular hypertension, N18.31 - Chronic kidney disease, stage 3a Medications: Changed From lisinopril 5 mg (2 x 2.5 mg) PO QAM 90 days 180 tabs 3RF To lisinopril 10 mg PO BID 180 tabs 3RF 90 days Coding Level of Care Code Est Pt Level 4 (39910) Diagnoses Renovascular hypertension I15.0 Hypertension type: renovascular hypertension Stage 3a chronic kidney disease N18.31 Chronic kidney disease stage 3 subtype: stage 3a (GFR 45-59)
[2025-10-30 16:09] VITALS: BP 160/64; PULSE 72; O2SAT 100; BMI 35.9
--- OUTSIDE RECORDS SUMMARY | 2025-10-30 19:33 | XMS_ITS | Clinical Summary ---
Author Organization [address] Address [address] [place] [phone] Phone Care Team Providers Care Computer Hardware Developer Name Role Phone Pennie Souza MD Primary Care Provider [phone] Allergies Active Allergy Reactions Criticality Noted Date [...] topic Insurance BS BCBS BCBS Care Teams Computer Hardware Developer Relationship Specialty Start Date End Date Pennie Souza MD PCP - General Internal Medicine 01/19/20
--- OUTSIDE RECORDS SUMMARY | 2025-10-30 19:33 | XMS_ITS | Patient Health Record ---
Author Organization [address] Address [address] [place] [address] Care Team Providers Care Risk Management Analyst Name Role Phone KARINA BRODERICK Unavailable [phone] Allergies Allergen (clinical drug ingredient) Drug/Non Drug [...] Problem Obesity due to exces s calories (883752658) Other obesity due to excess calories (E66.09) Active confirmed Problem Essential hypertension (41931317) Essential (primary) hypertension (I10) Active confirmed Problem Coarctation of aorta (8567467) Coarctation of aorta (Q25.1) Active confirmed Problem Pure hypercholesterolemia (931257173) Pure hypercholesterolemia (E78.00) Active confirmed Problem Body mass index 35.0 0 to 39.99 (600770607974644) Body mass index [BMI] 37.0-37.9, adult (Z68.37) Active confirmed Problem Atrial fibrillation (34656292) PAF (paroxysmal atrial fibrillation) (I48.0) Active confirmed Plan Of Treatment No Information Insurance Providers Payer Name Payer Address Payer Phone Subscriber Number Group Number Insured Name Patient Relationship to Insured Coverage Start Date Coverage End Date [facility] [address] [place] [address] [id number] MILAN CLARK Self - patient is the insured Medical (General) History Medical History History ICD Code high blood pressure high cholesterol hemorrhoids anemia kidney disease anxiety depression seasonal allergies Surgical History Surgery Date(Month/Year) patent ductus arterialosos 09/1967 coarctation of aorta 08/1974 angioplasty 12/1985
--- OUTSIDE RECORDS SUMMARY | 2025-10-30 19:33 | XMS_ITS | Clinical Summary ---
Author Organization [address] [facility] Address [address] [place] [address] Phone Care Team Providers Care Room Designer Name Role Phone Eva Watson MD Primary [...] monitor. Obstructive sleep apnea 11/15/2020 Overview (12/27/2023): [facility] sleep medicine. 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 is who is managing her blood pressure [...] 09/29/2025 4:15 PM EST Office Visit Walk-In [facility] - [address] [address] Salazar Aquino NP Other non-recurrent acute nonsuppurative otitis media of both ears (Primary Dx) 09/11/2025 1:30 PM EDT Office Visit Adult [facility] [address] [place] [phone] Eva Gonzalez MD [place] atrial fibrillation (CMS/HCC V24, CMS/HCC V28) (Primary Dx); Anxiety 09/08/2025 10:00 AM EDT Office Visit Walk-In [address] [address] Errol Luke PA Acute bacterial rhinosinusitis (Primary Dx) 09/08/2025 Telephone Walk-In [facility] [address] [place] [phone] Errol Luke PA 08/19/2025 Telephone Adult Medicine [address] [address] Bethany Nelson MA from Last 3 Months Immunizations Immunization Administration Dates Next Due Influenza Quadravalent, MDCK , 0.5ml, preservative free (Flucelvax) 6mo and older 09/15/2021,10/07/2020 Td Tetanus diptheria (Tdvax) 7yo and older 05/22 Tdap Tetanus diptheria acell ular pertussis (Boostrix; Adacel) 7yo and older 05/02/2016 Surgical History Surgery Date Site/Laterality Comments BUNIONECTOMY 1993 PROCEDURE: MA CORRJ HLX VLGS BNCTY SESMDC W/DOUBLE OSTEOTOMY; COMMENT: right foot SECTION PROCEDURE: MA DELIVERY ONLY; COMMENT: x2 CARDIAC CATHETERIZATION 2003 PROCEDURE: HISTORICAL CARDIAC CATH OTHER SURGICAL HISTORY 1966 PROCEDURE: MA REPAIR PATENT DUCTUS ARTERIOSUS LIGATION OTHER SURGICAL [...] kg (215 lb 9.6 oz) 09/11/2025 1:29 PM EDT Height 165.1 cm (5' 5 ) 09/11/2025 1:29 PM EDT Body Mass Index 35.88 09/11/2025 1:29 PM EDT Plan of Treatment Upcoming Encounters Date Type Department Care Team (Late st Contact Info) Description 02/26/2026 3:30 PM EDT Office Visit Obstetrics and Gynecology - [address] [phone] Azalia Ocasio CNM [address] [place] [address] 06/12/2026 2:00 PM EDT Office Visit Adult Medicine [facility] - [address] [phone] Eva Watson MD [address] [place] [address] 07/22/2026 3:40 PM EDT Appointment Radiology Department - [address] [phone] Health Maintenance Due Date Last Done Comments [...] is recommended in 1 year. MAMMO LOCATION: [facility], [address] [place] [address], [address], . -------- FINAL REPORT -------- Dictated By: Alis Mcdonald Dictated Date: 07/23/2025 13:10 ET Assigned Physician: Alis Mcdonald Reviewed and Electronically Signed By: Alis Mcdonald Signed Date: 07/23/2025 13:12 ET Workstation ID: [id number] Transcribed By: Self Edit Transcribed Date: 07/23/2025 [...] is recommended in 1 year. MAMMO LOCATION: [facility], [address] [place] [address], [address], . -------- FINAL REPORT -------- Dictated By: Alis Mcdonald Dictated Date: 07/23/2025 13:10 ET Assigned Physician: Alis Mcdonald Reviewed and Electronically Signed By: Alis Mcdonald Signed Date: 07/23/2025 13:12 ET Workstation ID: [id number] Transcribed By: Self Edit Transcribed Date: 07/23/2025 13:10 ET us Eva Watson MD IMG BI PROCEDURES Final Result * (ABNORMAL) Lipid panel with reflex to direct LDL (05/28/2025 8:15 AM EDT) Cholesterol 199 0 - 200 mg/dL LAB CHEMISTRY METHOD 05/28/2025 11:15 AM EDT [facility] Triglycerides 111 0 - 150 mg/dL LAB CHEMISTRY METHOD 05/28/2025 11:15 AM EDT [facility] HDL 64 >=40 mg/dL LAB CHEMISTRY METHOD 05/28/2025 11:15 AM T [facility] LDL Calculated 113(H) 0 - 100 mg/dL LAB CHEMISTRY METHOD 05/28/2025 11:15 AM EDT [facility] VLDL Cholesterol Grady 22.2 mg/dL LAB CHEMISTRY METHOD 05/28/2025 11:15 AM T [facility] Non HDL Chol. (LDL+VLDL) 135 <145 mg/dL LAB CHEMISTRY METHOD 05/28/2025 11:15 AM [facility] Chol/HDL Ratio 3.1 0.0 - 4.4 LAB CHEMISTRY METHOD 05/28/2025 11:15 AM T [facility] Blood Venous blood specimen / Unknown Venipuncture / Unknown 05/28/2025 8:15 AM EDT 05/28/2025 8:15 AM EDT us Ana MIRZA LAB BLOOD ORDERABLES Final Resu lt [facility] [address] [place] [address], * (ABNORMAL) Comprehensive metabolic panel (05/28/2025 8:15 AM EDT) Pathologist [facility] Sodium 139 133 - 145 mmol/L LAB CHEMISTRY METHOD 05/28/2025 11:15 AM T [facility] Potassium 4.2 3.5 - 5.5 mmol/L LAB CHEMISTRY METHOD 05/28/2025 11:15 AM [facility] Chloride 106 96 - 110 mmol/L LAB CHEMISTRY METHOD 05/28/2025 11:15 AM [facility] CO2 29 21 - 32 mmol/L LAB CHEMISTRY METHOD 05/28/2025 11:15 AM [facility] Anion Gap 4 3 - 11 LAB CHEMISTRY METHOD 05/28/2025 11:15 AM [facility] Glucose 99 70 - 100 mg/dL LAB CHEMISTRY METHOD 05/28/2025 11:15 AM [facility] BUN 33(H) 5 - 25 mg/dL LAB CHEMISTRY METHOD 05/28/2025 11:15 AM [facility] Creatinine 1.40(H) 0.50 - 1.10 mg/dL LAB CHEMISTRY METHOD 05/28/2025 11:15 AM [facility] eGFR 44(L) >=60 mL/min/1. 73m2 LAB CHEMISTRY METHOD 05/28/2025 11:15 AM [facility] Comment:Calculation based on the Chronic Kidney Disease Epidemiology Collaboration (CKD-EPI) equation refit without adjustment for race. BUN/Creatinine Ratio 23.6 LAB CHEMISTRY METHOD 05/28/2025 11:15 AM [facility] Calcium 9.0 8.5 - 10.5 mg/dL LAB CHEMISTRY METHOD 05/28/2025 11:15 AM [facility] AST (SGOT) 18 10 - 42 unit/L LAB CHEMISTRY METHOD 05/28/2025 11:15 AM [facility] ALT (SGPT) 21 10 - 60 unit/L LAB CHEMISTRY METHOD 05/28/2025 11:15 AM [facility] Alkaline Phosphatase 97 42 - 121 unit/L LAB CHEMISTRY METHOD 05/28/2025 11:15 AM [facility] Total Protein 6.8 6.0 - 8.0 g/dL LAB CHEMISTRY METHOD 05/28/2025 11:15 AM [facility] Albumin 3.9 3.2 - 5.0 g/dL LAB CHEMISTRY METHOD 05/28/2025 11:15 AM EDT [facility] Total Bilirubin 0.5 0.0 - 1.4 mg/dL LAB CHEMISTRY METHOD 05/28/2025 11:15 AM EDT [facility] Blood Venous blood specimen / Unknown Venipuncture / Unknown 05/28/2025 8:15 AM EDT 05/28/2025 8:15 AM EDT Ana MIRZA LAB BLOOD ORDERABLES Final Resu lt [facility] [address] [place] [address], * Bone Density Scan (Dexa Scan) (08/03/2023) [facility] Bone Density Scan Normal Anatomical Region Laterality Modality Other Historical Provider HEALTH MAINTENANCE Final Result * Hepatitis C Screening (09/26/2022) [facility] Hepatitis C Screening Abstracted Historical Provider HEALTH MAINTENANCE Final Result * Colonoscopy (01/01/2021) [facility] Colonoscopy No interpretation with ,abstracted Anatomical Region Laterality Modality Other Historical Provider HEALTH MAINTENANCE Final Result * Cervical Cancer Screening: HPV (12/15/2020) [facility] Cervical Cancer Screening: HPV No interpretation with Negative, abstracted Historical Provider HEALTH MAINTENANCE Final Result from Last 3 Months or Most Recently Relevant to Health Maintenance Insurance [facility] Care Teams Room Designer Relationship Specialty Start Date End Date Eva Watson MD [address] [place] [phone] PCP - General Internal Medicine 06/13/22
--- OUTSIDE RECORDS SUMMARY | 2025-10-30 19:33 | XMS_ITS | Patient Health Record ---
Author Organization [facility] Address [address] [place] [address] Care Team Providers Care Gaming Cage Cashier Name Role Phone Eva Chen Primary Care Provider Ying [place] [phone] Allergies Allergen (clinical drug ingredient) Drug/Non Drug [...] Status Risk Notes Problem Acquired hallux valgus (26603971) Hallux valgus (acquired), left foot (M20.12) Active confirmed Problem Localized, primary osteoarthritis of the ankle and/or foot (159228495) Primary osteoarthriti s, left ankle and foot (M19.072) Active confirmed Problem Acquired hallux valgus (61194140) Hallux valgus (acquired), right foot (M20.11) Active confirmed Problem Plantar fascial fibromatosis (25036571) Plantar fasciitis, bilateral (M72.2) Active confirmed Vital Signs Blood pressure diastolic 65 mm Hg 09/19/2025 Height 5ft 5in in 09/19/2025 Blood pressure systolic 128 mm Hg 09/19/2025 Weight 208 lbs 09/19/2025 BMI 34.61 kg/m2 09/19/2025 Encounters Encounter Location Date Provider Diagnosis [address] [address] 09/19/2025 Ying Reyes Pain in right foot M79.671 ; Plantar fasciitis, bilateral M72.2 ; Calcaneal spur, right foot M77.31 ; Other myositis of right foot M60.871 ; Bursitis of right foot M77.51 ; Pain in left foot M79.672 ; Calcaneal spur, left foot M77.32 ; Other myositis of left foot M60.872 and Bursitis of left foot M77.[address] [address] 09/19/2025 Yingceline Reyes [address] [address] 09/19/[address] [address] 09/22/2025 Ying Reyes Assessments Encounter Date Diagnosis [...] X ray : Foot, right 3V 05/26/2022 [id number]-Jyhp Destruction, 1-14 08/30/2016 98349-Hnub Destruction, 1-14 05/28/2013 02452-Lzbw Destruction, 1-14 07/04/2013 53949, J0702- INJECT or DRAIN, JOINT/BUR SA 09/19/2023 38279, [id number]/INJECT, JOINT/BURSA 1 11/19/2022 83192, [id number]/INJECT, JOINT/BURSA 0 05/26/2022, [id number]/INJECT, JOINT/BURSA 0 07/06/2022 Next Appt Details Provider Name:Ying Barajaskalli urbina, 11/21/2025 02:00:00 PM, [address] [facility] [address], [place], [address], Insurance Providers Payer Name Payer Address Payer Phone Subscriber Number Group Number Insured Name Patient Relationship to Insured Coverage Start Date Coverage End Date [facility] [address] [place] [address] [id number] Kristine Freitas Self - patient is the [...]
--- OUTSIDE RECORDS SUMMARY | 2025-10-30 19:33 | XMS_ITS | Clinical Summary ---
Author Organization [facility] Address [address] [facility] [address] [place] [address] Phone Care Team Providers Care Aviation Medicine Specialist Name Role Phone Eva Reardon MD Primary [...] Vaccine (#1) 2025 09/15/2021, 2019 Insurance [facility] Care Teams Aviation Medicine Specialist Relationship Specialty Start Date End Date Eva Reardon MD PCP - General 08/11/22
--- OUTSIDE RECORDS SUMMARY | 2025-10-30 19:33 | XMS_ITS | Encounter Summary ---
Author Organization [facility] Address [address] [place] [address] Phone Care Team Providers Care Dance Choreographer Name Role Phone Eva Reardon MD Primary Care Provider + Encounter Details Date Type Department Care Team (Late st Contact Info) Description 04/26/2022 Telephone [facility] [address] [facility] [address] [place] [address] Sacha Malik MD [address] [place] [phone] Social History Tobacco Use Types Packs/Day Years [...] on filedocumented in this encounter Care Teams Dance Choreographer Relationship Specialty Start Date End Date Eva Reardon MD PCP - General 9/29/22 documented as of this encounter
== END 2025-10-30 16:57 | disposition home or self-care (01) ==
LOC: HO.HKAS 15:50
PROVIDERS: PCP Internal Medicine; Visit Provider Internal Medicine Nephrology
DX: I15.0 Renovascular hypertension (principal); N18.31 Chronic kidney disease, stage 3a
CPT/HCPCS: 99214